=== PATIENT | female | born 1985 | race Asian ===

== ENCOUNTER 2021-01-21 15:27 | Outpatient (CLI) | payer OTHER, SELFPAY ==
--- NOTE | 2021-01-21 15:45 | USR_ITS ---
PROCEDURE INFORMATION: Exam: US , Transvaginal Exam date and time: 01/21/2021 3:45 PM Age: 35 years old Clinical indication: Lmp or gestational age (in weeks): 7w5d; Antepartum complications; Bleeding; ; Additional info: O20.0 - threatened TECHNIQUE: Imaging protocol: Real-time transvaginal obstetrical ultrasound of the maternal pelvis with image documentation. Transvaginal imaging was used for better evaluation of the fetus, adnexa, and/or cervix. COMPARISON: No relevant prior studies available. FINDINGS: Gestation: Single intrauterine . heart rate: heart rate 167 bpm. BIOMETRY: Gestational age (AUA): Ultrasonographic age 7 weeks 4 days. Estimated due date (AUA): 09/04/2021 US/US OB transvaginal 52804 IMPRESSION: 1. Single intrauterine . 2. heart rate 167 bpm. 3. Ultrasonographic age 7 weeks 4 days.
== END 2021-01-21 15:28 | disposition home or self-care (01) ==
PROVIDERS: Visit Provider Nurse Practitioner Women's Health
DX: O20.0 Threatened abortion (principal); Z3A.01 Less than 8 weeks gestation of pregnancy
CPT/HCPCS: 76817; 81025; 84702

== ENCOUNTER → 2021-02-09 13:48 | Outpatient (BNVA) | payer OTHER, SELFPAY | PROVIDERS: Visit Provider Obstetrics & Gynecology | DX: O09.899 Supervision of other high risk pregnancies, unspecified trimester (principal); O21.9 Vomiting of pregnancy, unspecified | CPT/HCPCS: 80307; 82950; 84315; 87086; 87106; 87107 ==

== ENCOUNTER → 2021-02-24 13:50 | Outpatient (BNVA) | payer OTHER, SELFPAY | PROVIDERS: Visit Provider Obstetrics & Gynecology | DX: O09.899 Supervision of other high risk pregnancies, unspecified trimester (principal) | CPT/HCPCS: 81000; 87086 ==

== ENCOUNTER → 2021-03-23 10:23 | Outpatient (BNVA) | payer OTHER, SELFPAY | PROVIDERS: Visit Provider Nurse Practitioner Women's Health | DX: O09.899 Supervision of other high risk pregnancies, unspecified trimester (principal); Z3A.00 Weeks of gestation of pregnancy not specified | CPT/HCPCS: 82607; 82728; 83550; 84315; 84439; 84443; 84481; 85025 ==

== ENCOUNTER → 2021-04-08 09:53 | Day surgery (SDC) | payer OTHER, SELFPAY ==
[2021-04-08 10:10] VITALS: BP 107/63; PULSE 78; RESP 18; TEMP 36.3; O2SAT 100
[2021-04-08] MEDS: ferric carboxy (IVPB) 750 MG in sodium chloride 0.9% (100 ml) 100 ML 345 MG IV (10:32)
== END ==
PROVIDERS: PCP Internal Medicine; Visit Provider Internal Medicine
DX: K90.9 Intestinal malabsorption, unspecified (principal)
CPT/HCPCS: 96365; J1439

== ENCOUNTER → 2021-04-15 10:24 | Day surgery (SDC) | payer OTHER, SELFPAY ==
[2021-04-15 10:29] VITALS: BP 145/76; PULSE 110; RESP 18; TEMP 36.3; O2SAT 98
[2021-04-15] MEDS: ferric carboxy (IVPB) 750 MG in sodium chloride 0.9% (100 ml) 100 ML 345 MG IV (10:37)
== END ==
PROVIDERS: PCP Internal Medicine; Visit Provider Internal Medicine
DX: K90.9 Intestinal malabsorption, unspecified (principal)
CPT/HCPCS: 96365; J1439

== ENCOUNTER → 2021-04-21 15:10 | Outpatient (BNVA) | payer OTHER, SELFPAY | PROVIDERS: PCP Internal Medicine; Visit Provider Obstetrics & Gynecology | DX: O09.899 Supervision of other high risk pregnancies, unspecified trimester (principal); R30.0 Dysuria; R81 Glycosuria | CPT/HCPCS: 36416; 81000; 82962; 87086 ==

== ENCOUNTER → 2021-04-27 16:04 | Outpatient (BNVA) | payer OTHER, SELFPAY | PROVIDERS: PCP Internal Medicine; Visit Provider Obstetrics & Gynecology | DX: O09.899 Supervision of other high risk pregnancies, unspecified trimester (principal) | CPT/HCPCS: 84315; 84443; 85025 ==

== ENCOUNTER 2021-06-15 08:02 | Outpatient (CLI) | payer OTHER, SELFPAY ==
[2021-06-15 09:13] LABS: Glucose Fasting Gestational 108
[2021-06-15 10:30] LABS: Hematocrit 34.9 % (37.0-47.0); Hemoglobin 11.3 g/dL (11.5-15.3); Mean Corpuscular HGB Conc 32.4 g/dL (30.0-36.0); Mean Corpuscular Hemoglobin 30.2 pg (28.0-34.0); Mean Corpuscular Volume 93.3 fl (81-99); Mean Platelet Volume 10.9 fL (7.4-10.4); Platelet Count 211 10^3/cmm (130-400); Red Blood Count 3.74 10^6/uL (4.1-5.3); Red Cell Distribution Width 17.4 % (12.1-15.1); White Blood Count 10.9 10^3/uL (4.0-10.0)
[2021-06-15 11:05] LABS: Glucose 1 Hour 236 mg/dL
[2021-06-15 11:18] LABS: Thyroid Stimulating Hormone 3.39 uIU/mL (0.27-4.20)
[2021-06-15 11:59] LABS: Glucose 2 Hour 153 mg/dL
[2021-06-15 13:09] LABS: Glucose 3 Hour 122 mg/dL
[2021-06-15 19:30] LABS: Free T4 Free Thyroxine 0.97 ng/dL (0.82-1.77); T3 Free 2.6 PG/ML (2.0-4.4)
== END 2021-06-15 08:03 | disposition home or self-care (01) ==
LOC: LAB 08:06
PROVIDERS: PCP Internal Medicine; Visit Provider Obstetrics & Gynecology
DX: E03.9 Hypothyroidism, unspecified (principal)
CPT/HCPCS: 82951; 82952; 84439; 84443; 84481; 85027

== ENCOUNTER 2021-06-19 16:24 | Outpatient (CLI) | payer OTHER, SELFPAY ==
[2021-06-19 18:10] LABS: SARS Covid-2 Antigen Negative (Negative)
[2021-06-22 17:32] LABS: Coronavirus Test Green County Not Detected
== END 2021-06-19 16:25 | disposition home or self-care (01) ==
LOC: OPS 16:27
PROVIDERS: PCP Internal Medicine; Visit Provider Emergency Medicine
DX: Z20.822 Contact with and (suspected) exposure to COVID-19 (principal)
CPT/HCPCS: 87426; 87635

== ENCOUNTER → 2021-07-11 15:34 | Outpatient (BNVA) | payer OTHER, SELFPAY | PROVIDERS: PCP Internal Medicine; Visit Provider Nurse Practitioner Women's Health | DX: O24.419 Gestational diabetes mellitus in pregnancy, unspecified control (principal); O09.899 Supervision of other high risk pregnancies, unspecified trimester | CPT/HCPCS: 76816; 76819; 84315; 84443 ==

== ENCOUNTER 2021-07-15 14:30 | Outpatient (CLI) | payer OTHER, SELFPAY ==
[2021-07-15 14:40] VITALS: BMI 38.7
[2021-07-15 14:43] VITALS: BP 100/65; PULSE 103; RESP 18; TEMP 36.3
--- NOTE | 2021-07-15 14:46 | USR_ITS ---
PROCEDURE INFORMATION: Exam: US Biophysical Profile Without Non-Stress Test Exam date and time: 07/15/2021 2:46 PM Age: 35 years old Clinical indication: Other: Bpp C/O gdm; ; Patient HX: Gdm, normal nst today. ; Additional info: Decreased movment TECHNIQUE: Imaging protocol: US biophysical profile without non-stress testing. Total images: 24 COMPARISON: US OB BPP w NST [facility] 07/11/2021 3:37 PM FINDINGS: heart rate: cardiac activity regular at 157 bpm. Presentation: Cephalic presentation. Placenta: Posterior placenta without visible previa or abruption. Amniotic fluid: Largest amniotic fluid pocket 6.2 cm. BIOPHYSICAL PROFILE: Breathin/2 Gross body movements: 2/2 tone: 2/2 Qualitative amniotic fluid: 2/2 Biophysical Profile Score: 8/8 MATERNAL ANATOMY: Cervix: Cervical length 4.4 cm. US/US OB BPP wo NST 74928 IMPRESSION: Biophysical profile score 8/8.
[2021-07-15 14:58] VITALS: BP 90/55; PULSE 104
[2021-07-15 15:31] LABS: Glucose Point of Care 105 mg/dL (70-110)
[2021-07-15 15:44] VITALS: BP 90/55; PULSE 104
== END 2021-07-15 15:45 | disposition home or self-care (01) ==
LOC: OPOB 14:33 → OBGYN 14:35
PROVIDERS: Absent Provider Obstetrics & Gynecology; PCP Internal Medicine; Visit Provider Obstetrics & Gynecology
DX: O36.8190 Decreased fetal movements, unspecified trimester, not applicable or unspecified (principal); Z3A.00 Weeks of gestation of pregnancy not specified
CPT/HCPCS: 36416; 59025; 76819; 82962; 99211

== ENCOUNTER → 2021-08-03 15:24 | Outpatient (BNVA) | payer OTHER, SELFPAY | PROVIDERS: PCP Internal Medicine; Visit Provider Obstetrics & Gynecology | DX: O09.899 Supervision of other high risk pregnancies, unspecified trimester (principal); D64.9 Anemia, unspecified; E03.9 Hypothyroidism, unspecified | CPT/HCPCS: 84315; 87081 ==

== ENCOUNTER → 2021-08-08 16:21 | Outpatient (BNVA) | payer OTHER, SELFPAY | PROVIDERS: PCP Internal Medicine; Visit Provider Obstetrics & Gynecology | DX: O09.899 Supervision of other high risk pregnancies, unspecified trimester (principal); O24.419 Gestational diabetes mellitus in pregnancy, unspecified control | CPT/HCPCS: 84315; 84443; 85025 ==

== ENCOUNTER 2021-08-14 13:45 | Outpatient (CLI) | payer OTHER, SELFPAY ==
[2021-08-14] MEDS: betamethasone susp 6 mg/mL 5 mL 12 MG IM (14:08)
[2021-08-14 14:33] VITALS: RESP 18
== END 2021-08-14 14:34 | disposition home or self-care (01) ==
LOC: OPOB 13:51
PROVIDERS: PCP Internal Medicine; Visit Provider Obstetrics & Gynecology
DX: O26.899 Other specified pregnancy related conditions, unspecified trimester (principal); Z3A.00 Weeks of gestation of pregnancy not specified
CPT/HCPCS: 96372; J0702

== ENCOUNTER 2021-08-15 15:15 | Outpatient (CLI) | payer OTHER, SELFPAY ==
[2021-08-15 15:26] VITALS: BMI 39.6
[2021-08-15] MEDS: betamethasone susp 6 mg/mL 5 mL 12 MG IM (15:33)
== END 2021-08-15 15:50 | disposition home or self-care (01) ==
LOC: OPOB 15:18 → OBGYN 15:19
PROVIDERS: PCP Internal Medicine; Visit Provider Obstetrics & Gynecology
DX: O26.899 Other specified pregnancy related conditions, unspecified trimester (principal); Z3A.00 Weeks of gestation of pregnancy not specified
CPT/HCPCS: 96372; J0702

== ENCOUNTER 2021-08-16 05:31 | Inpatient (IN) | payer OTHER, SELFPAY ==
--- NOTE | 2021-08-11 12:30 | ANES.PREANE2 ---
Pre-Anesthetic Assessment Pre-Anesthetic Assessment: Height/Weight: Height 1.57 m Preop Diagnosis: IUP Proposed Procedure: Operation Date: 08/16/21 07:00 Proposed Procedures p Section Repeat 11725 O34.219(Not Applicable) - Clarisa Mcclellan MD Familial anesthetic complications: Required unplanned and last epidural ended up being unilateral and she could feel. She had to have emergent general. Social: Social History: No alcohol and No tobacco Exam: Pre-Anes Outpt Exam: alert, oriented x 3, clear to auscultation bilaterally and regular rate & rhythm Airway: MP: 2 Dentition: Full GI: GI: GERD Metabolic: Metabolic: DM (gestational DM (scheduled )) and Thyroid Anesthetic Plan: ASA status: 2 Anesthesia: Regional (specify below) (spinal ) Risk of > 500 ml blood loss (7ml/kg in children): No PFSH Anesthesia PFSH: Medical History Anemia Reports being chronically anemic--states work-up has been done which only showed iron deficiency-have requested these records Cyst, ovary, dermoid Reports being diagnosed with a dermoid cyst either 4 mm or 4 cm in one of her ovaries in 2014. She states that she had serial ultrasounds that showed no growth and at the time of her in 2016 she was told that it resolved and she never had any surgical intervention. Hypothyroidism Diagnosed in 2017 and has been on medication. Reports that she is not very compliant with taking the medication. No pertinent past medical history Denies diabetes, asthma, hypertension, seizures, DVT/PE PCP:None Pituitary microadenoma Reports being diagnosed with a pituitary microadenoma in 2013 when she was undergoing evaluation for elevated prolactin. She had follow-up MRIs and was told everything was stable. She has not have this reevaluated since 2014. Recommend follow-up with endocrinology . She is asymptomatic Surgical History History of bunionectomy 2007 - Left foot History of delivery 04/17/2021-done by Dr. Wayne Hunter in [facility]. ----->Operative reports have been requested and received and scanned. Low transverse delivery for failure to progress-single layer closure with no extensions documented. History of tonsillectomy and adenoidectomy 2003 Family History Grandfather Cancer maternal, Lymphoma Diabetes maternal Hypertension Mother Diabetes Hypertension Grandmother Diabetes maternal Hypertension maternal Family/Other Thyroid disease maternal uncle Heart disease paternal aunt, paternal uncle Brother Diabetes Denies family history of Colon cancer Ovarian cancer Hypercholesteremia Breast cancer Uterine cancer Stroke Data Anesthesia Cardiac Studies: No Data to Display
[2021-08-14 09:33] LABS: Quest SARS-CoV-2 RNA NOT DETECTED (NOT DETECTED)
[2021-08-16] VITALS (20 sets, daily range): BP systolic 91–127; BP diastolic 54–88; PULSE 57–82; RESP 14–18; TEMP 35.9–36.9; O2SAT 95–99; BMI 38.6
--- NOTE | 2021-08-16 06:24 | PM.OPHPUD ---
Labor & Delivery H&P Update Date of Procedure: August 16, 2021 Date H&P Performed: 08/08/21 Changes to previous documentation: none Admission Diagnosis: Preop diagnosis: IUP Planned procedure: Operation Date: 08/16/21 07:00 Proposed Procedures p Section Repeat 96968 O34.219(Not Applicable) - Clarisa Mcclellan MD
[2021-08-16] MEDS: lactated ringers 1,000 ML 999 ML IV (06:28)
[2021-08-16] MEDS: metoclopramide 5 mg/mL SDV 2 mL 10 MG IVP (06:29)
[2021-08-16] MEDS: famotidine 20 mg/2 mL INJ IVP (06:29)
[2021-08-16] MEDS: citric acid-sodium citrate 30 mL UDC PO (06:29)
[2021-08-16 06:33] LABS: Basophils % 0.2 %; Hemoglobin 12.1 g/dL (11.5-15.3); Lymphocytes # 2.5 10^3/uL (0.8-4.8); Mean Corpuscular HGB Conc 32.7 g/dL (30.0-36.0); Mean Corpuscular Hemoglobin 29.2 pg (28.0-34.0); Mean Corpuscular Volume 89.2 fl (81-99); Mean Platelet Volume 11.8 fL (7.4-10.4); Monocytes # 0.5 10^3/uL (0.2-0.9); Monocytes % 3.8 %; Neutrophils # 9.08 10^3/uL (1.8-7.7); Neutrophils % 73.8 %; Nucleated Red Blood Cells % 0 %; Platelet Count 205 10^3/cmm (130-400); Red Blood Count 4.15 10^6/uL (4.1-5.3); Red Cell Distribution Width 14.4 % (12.1-15.1); White Blood Count 12.3 10^3/uL (4.0-10.0)
--- NOTE | 2021-08-16 07:52 | PC.NURSE ---
surgicel placed: ref: [id number], LOT: [id number] Exp: 03-22-25
--- NOTE | 2021-08-16 08:53 | P.OP_ITS ---
Operative Report Date of procedure: August 16, 2021 OPERATIVE REPORT Date of surgery: 08/16/2021 Date of dictation: 08/16/2021 Preoperative diagnosis: 35-year-old 2 para 1-0-0-1 at 37 weeks and 1 day gestation, previous delivery x1 desiring repeat , hypothyroidism on medication, anemia status post IV iron, gestational diabetes poorly controlled with insulin, GBS negative Postoperative diagnosis/findings: Thin omental adhesions and thin bladder adhesions on the lower uterine segment, baby girl weighing 7 pounds 7 ounces, normal tubes and ovaries bilaterally Procedure done: Repeat low transverse delivery via Pfannenstiel incision. Specimens removed/disposition of specimens: Placenta and cord which were discarded Surgeon: Dr. Clarisa Teague training assistant: Ramón Reyes Stephanie Anesthesia: Spinal anesthesia Estimated blood loss: 700 ml Intravenous fluids: 1600 mL of LR Urine output: 250 mL of clear urine at the end of procedure Medications: As per anesthesia records Complications: None, both baby and mother were left to recover in a stable condition. PROCEDURE: After consent was obtained, patient was taken to the operating room where spinal anesthesia was placed without difficulty. She was placed supine on the table with a left lateral wedge. Piedra catheter and SCDs were placed. The abdomen was shaved and then prepped with duo prep. She was draped in a sterile fashion. After checking adequacy of anesthesia, a Pfannenstiel incision was made 2 cm above the pubic symphysis-at the level of her old incision The incision was carried down to the fascia using the Bovie. The fascia was nicked in the midline and the fascial incision was extended laterally using curved Mayos. The inferior aspect of the fascia was grasped with jamie clamps and dissected off from the underlying rectus muscle. This was repeated again superiorly without any difficulty. The rectus muscle was . A sahara was made in the peritoneum and the peritoneal incision was carried inferiorly taking care to proceed in layers so as to avoid the bladder. The peritoneal incision was extended super iorly as well. Thin filmy omental adhesions were noted onto the anterior abdominal wall. No adhesions were noted from the uterus to the anterior abdominal wall. The uterus was noted to be rotated to the left. The bladder peritoneum was grasped with smooth forceps a bladder flap was created. the bladder blade was replaced thus protecting the bladder. A LOW TRANSVERSE UTERINE INCISION was made with a scalpel till the amniotic membrane was reached. The uterine incision was then extended laterally using bandage scissors. Amniotomy was done with Allis clamps and clear amniotic fluid was drained. The head of the baby was brought up to the level of the incision and delivered with fundal pressure. The remainder of body followed without any difficulty. The nose and mouth were suctioned, the umbilical cord was clamped and cut and the baby was handed off to the waiting carbon paper coating supervisor, Dr. Johnson. The placenta was delivered spontaneously with fundal massage. It was noted to be intact and was discarded. The interior of the uterus was cleaned of all clot and debris and was noted to be lupe well. The uterus was exteriorized. The uterine incision was closed with 0 Vicryl in a running interlocking manner. Good hemostasis and reapproximation was obtained. Lyvjog-zf-dmetc sutures were placed to obtain hemostasis as a second layer. The abdomen was irrigated and the gutters were cleaned of clot and debris. Normal tubes and ovaries were noted bilaterally. The uterus was placed back into the abdomen and uterine incision was noted to be hemostatic. Surgicel was placed over the uterine incision. The peritoneum was closed with a 2-0 plain in a continuous stitch. The rectus muscle was reapproximated with 2-0 plain suture in a mattress stitch. Good hemostasis was noted in the rectus muscle layer. The fascia was inspected for any defects and none were found and the fascia was closed with 0 looped PDS in continuous stitch. The subcutaneous plane was then irrigated and hemostasis was obtained using the Bovie. The subcutaneous plane was then reapproximated using 2-0 plain suture in a continuous manner. The skin was then closed with 4-0 Monocryl in a subcuticular fashion. Good reapproximation and hemostasis was noted. Steri- Strips were applied. The incision was dressed with Telfa ,ABD and paper tape. The fundus was noted to be firm at the end of the procedure and excess blood was expressed from the vagina. The patient was left to recover in a stable condition. This documentation was created by [employer] inner layer scrubber tender software (known for inher ent inner layer scrubber tender error). Every effort was made to assure accuracy of inner layer scrubber tender. Any obvious errors or omissions should be clarified with the author of the document. Pre-op diagnosis: Preop Diagnosis IUP
--- NOTE | 2021-08-16 10:11 | P.ANESUD_ITS ---
Pre-Anesthetic Update Pre-Anesthetic Assessment: Date of Surgery/Procedure: 08/16/21 Preop Gina gnosis: IUP Proposed Procedure: Operation Date: 08/16/21 07:00 Proposed Procedures p Section Repeat 42701 O34.219(Not Applicable) - Clarisa Mcclellan MD Any changes to Pre-Anesthetic Assessment?: No Last Intake: Intake Last Liquid Date 08/15/21 Last Liquid Time 21:00 Last Solid Date 08/15/21 Last Solid Time 21:00 Labs Last 48hrs: Short CBC 08/16/21 Range/Units 05:55 WBC 12.3 H (4.0-10.0) 10^3/ uL Hgb 12.1 (11.5-15.3) g/dL Hct 37.0 (37.0-47.0) % MCV 89.2 (81-99) fl Plt Count 205 (130-400) 10^3/c mm Neut % (Auto) 73.8 % Neut # (Auto) 9.08 H (1.8-7.7) 10^3/u L Blood Bank 08/16/21 05:55 Blood Type A Positive Rho(D) Type Positive Vitals: Temperature 98.0 F 08/16/21 08:26 Temperature Source Temporal Artery S can 08/16/21 08:26 Pulse Rate 67 08/16/21 08:50 Pulse Rhythm 08/16/21 05:59 Pulse Strength 3+ Normal 08/16/21 05:59 Respiratory Rate 16 08/16/21 08:50 Respiratory Effort Non-Labored 08/16/21 05:59 Respiratory Depth Normal 08/16/21 05:59 Respiratory Patter n 08/16/21 05:59 Blood Pressure 104/58 08/16/21 08:50 Blood Pressure Tonia n 73 08/16/21 08:50 Pulse Oximetry 99 08/16/21 08:50 Oxygen Delivery Me thod 08/16/21 08:50 Exam: Pre-Anes Outpt Exam: alert, oriented x 3, clear to auscultation bilaterally and regular rate & rhythm Cardiac Studies: No Data to Display
--- NOTE | 2021-08-16 10:12 | ANE.PACU2 ---
Inpatient post-anesthesia follow up: Vital signs: Temperature 98.0 F Pulse Rate 67 Respiratory Rate 16 Blood Pressure 104/58 Pulse Oximetry 99 Oxygen Delivery Me thod Room Air Oxygen Flow Rate Fraction of Inspir ed Oxygen Hydration adequate: Yes Nausea and vomiting: No Pain level: 1 Mental status: Baseline
[2021-08-16 11:01] LABS: Glucose Point of Care 59 mg/dL (70-110)
[2021-08-16] MEDS: dextrose 5%-lactated ringers 1,000 ML 125 ML IV (12:19)
[2021-08-16] MEDS: docusate sodium 100 mg Capsule PO ×2 (12:20→18:39)
[2021-08-16] MEDS: ibuprofen 800 mg tablet PO ×2 (15:32→20:55)
[2021-08-16] MEDS: acetaminophen 325 mg Tablet 650 MG PO (18:39)
[2021-08-16 21:12] LABS: Hematocrit 33.2 % (37.0-47.0); Hemoglobin 10.9 g/dL (11.5-15.3); Mean Corpuscular HGB Conc 32.8 g/dL (30.0-36.0); Mean Corpuscular Hemoglobin 29.1 pg (28.0-34.0); Mean Corpuscular Volume 88.5 fl (81-99); Platelet Count 185 10^3/cmm (130-400); Red Blood Count 3.75 10^6/uL (4.1-5.3); Red Cell Distribution Width 14.3 % (12.1-15.1); White Blood Count 14.2 10^3/uL (4.0-10.0)
[2021-08-16] MEDS: dextrose 5%-lactated ringers 1,000 ML 50 ML IV (21:30)
[2021-08-16] MEDS: lactulose oral liq 20 gm/30 mL UDC PO (22:30)
[2021-08-17 03:14] VITALS: BP 105/68; PULSE 71; TEMP 36.8; O2SAT 96
--- NOTE | 2021-08-17 08:12 | PM.PN ---
Subjective Subjective: Interval history: SUBJECTIVE: Ms. Piper is doing okay today. Has quite a bit of pain but has not been taking her pain medication and has not had p.o. pain medicines in over 8 hours. She has ambulated a little. Reports passing flatus as well as having a bowel movement. She is breast-feeding without any difficulty and bonding well with her daughter. She denies nausea, vomiting, fever, chills, shortness of breath and chest pain. She is just pretty sore. She has not yet voided since catheter was just taken out but hopes that she will be able to void without any difficulty later today. OBJECTIVE/PHYSICAL EXAM: Gen.: No acute distress Heart: S1-S2 heard, regular rate and rhythm Lungs: Clear to auscultation bilaterally Abdomen: Soft, fundus firm below umbilicus, tenderness around incision. Incision: Dressing on appears clean dry and intact Legs: No calf tenderness, +1 pitting pedal edema. ASSESSMENT AND PLAN: 35-year-old gravida2 para 2002 status post repeat delivery, postoperative day #1 -Continue routine postoperative care -Encourage ambulation and incentive spirometer use -Long discussion with patient about importance of taking p.o. pain medication on schedule especially for the first week to come trolled postoperative pain. Patient's concern was getting constipated and patient reassured and constipation medication discussed. -Breast-feeding discussed and she is doing well with this. -Discussed I would recommend she stay at least for 1 more night to recover from surgery and she is agreeable with this. -Vital signs stable, hemoglobin stable continue regular diet - Vitals/I&O/Wt Last Vital Signs Temp 98.2 F 08/17/21 03:14 Pulse 71 08/17/21 03:14 Resp 16 08/16/21 17:21 BP 105/68 08/17/21 03:14 Pulse Ox 96 08/17/21 03:14 08/16/21 08/17/21 08/17/21 22:59 06:59 14:59 Intake Total 960.417 / 2520.417 500 / 3020.417 Output Total 800 / 2150 900 / 3050 Balance 160.417 / 370.417 -400 / -29.583 Weight last 48 hrs Weight 218 lb Physical Exam Urinary Catheter Management: Piedra: Cath Placed During This Visit: yes, but has since been removed by the nurse Reason for Continuing Indwelling Catheter: Decision to DC Catheter Urinary Catheter Date of Insertion: 08/16/21 Urinary Catheter Time of Insertion: 07:00 Date Urinary Catheter Removed: 08/17/21 Time Urinary Catheter Discontinued: 06:01 Data : 08/16/21 21:00 Attestations Medical Necessity Statement*: Patient needs to stay for 1 or 2 more midnights to recover from surgery Coding Level of Care Code Acute Corporate Administrator for Antonia Frye
[2021-08-17] MEDS: HYDROcodone-acetaminophen 5-325 mg Tablet PO ×4 (08:47→23:11)
[2021-08-17] MEDS: prenatal vitamin Capsule 1 CAP PO (08:47)
[2021-08-17] MEDS: ibuprofen 800 mg tablet PO ×3 (08:48→21:36)
[2021-08-17] MEDS: ferrous sulfate EC 325 mg Tablet PO ×2 (08:48→18:18)
--- NOTE | 2021-08-17 09:35 | PC.NURSE ---
Patient ambulating in the smiley at this time. Patient completing 10 laps as stated by her primary nurse. With each lap, patient was starting to stand up straighter and the patient was increasing speed. FLACC scale completed on pain level post pain medication.
--- NOTE | 2021-08-17 17:38 | PC.NURSE ---
on the phone with Patient in room
[2021-08-17] MEDS: docusate sodium 100 mg Capsule PO ×2 (18:18→19:11)
[2021-08-17 19:29] VITALS: RESP 17
[2021-08-17] MEDS: morphine 4 mg/mL SDV 1 mL IM (19:29)
[2021-08-17 20:45] VITALS: BP 102/70; PULSE 98; TEMP 36.4; O2SAT 98
--- NOTE | 2021-08-17 21:46 | PC.NURSE ---
Patient ambulated 5 labs around unit at this time.
[2021-08-17] MEDS: lanolin oint 7 gm 1 APPLIC TOPICAL (21:51)
[2021-08-17 23:19] VITALS: BP 105/71; PULSE 97; TEMP 36.6
[2021-08-18] MEDS: HYDROcodone-acetaminophen 5-325 mg Tablet PO ×3 (02:58→11:06)
[2021-08-18 04:40] VITALS: BP 93/60; PULSE 69; RESP 15; TEMP 36.9
[2021-08-18 07:20] VITALS: BP 121/81; PULSE 79; RESP 18; TEMP 36.6
--- NOTE | 2021-08-18 08:58 | P.DS_ITS ---
Discharge Providers GENERAL SERVICE OFFICER Date of Admission: 08/16/21 05:31 Date of Discharge: 08/18/21 Attending Provider at Admission: Clarisa Mcclellan MD Attending Provider at Discharge: Clarisa Mcclellan MD PREOPERATIVE DIAGNOSIS: 35-year-old 2 para 1-0-0-1 at 37 weeks and 1 day gestation, previous delivery x1 desiring repeat , hypothyroidism on medication, anemia status post IV iron, gestational diabetes poorly controlled with insulin, GBS negative Covid negative POSTOPERATIVE DIAGNOSIS/FINDINGS: Status post repeat delivery on 08/16/2021 Hypothyroidism Anemia-stable Procedure done: Repeat low transverse delivery via Pfannenstiel incision. Surgeon:Dr. Clarisa Teague Preprocedure course: Patient presented on 08/16/2021 for scheduled repeat delivery for poorly controlled gestational diabetes on insulin. She did have 1 previous and desires repeat delivery. She was not interested in trial of labor. HOSPITAL COURSE: She underwent an uncomplicated repeat delivery on 08/16/2021. She did well on day 1 and was ambulating well, tolerating regular diet, voiding freely, passing flatus. She was breast-feeding without difficulty and bonding well with her daughter. Pain was well-controlled with by mouth pain medication. She denied nausea, vomiting, fever, chills, shortness of breath, leg pain. She had moderate vaginal bleeding. On day # 2 she continued to do well with stable vital signs and stable hemoglobin at 10.9. She was discharged home on day 2 in a stable condition, as she desired early discharge. Warning signs for endometritis, wound infection, mastitis, DVT/PE were reviewed with her. Post delivery activity restrictions were also reviewed with her at all her questions were answered to her satisfaction. She is undecided about what she wants to use for contraception and this will be discussed at her visit. EXAM AT DISCHARGE: Gen.: No acute distress Heart: S1-S2 heard, regular rate and rhythm Lungs: Clear to auscultation bilaterally Abdomen: Soft, fundus firm below umbilicus, tenderness around incision. Incision: Clean dry and intact with Steri-Strips. Legs: No calf tenderness, trace pedal edema. CONDITION AT DISCHARGE: Stable This documentation was created by [employer] web press jogger software (known for inherent web press jogger error). Every effort was made to assure accuracy of web press jogger. Any obvious errors or omissions should be clarified with the author of the document. Primary Care Provider: Kenny Zabala MD Reason for Visit Reason for Visit: JOHN 09/05/2021 Information Peripartum Data: Infant Delivery Method: Physical Exam Urinary Catheter Management: Piedra: Cath Placed During This Visit: yes, but has since been removed by the nurse Reason for Continuing Indwelling Catheter: Decision to DC Catheter Urinary Catheter Date of Insertion: 08/16/21 Urinary Catheter Time of Insertion: 07:00 Date Urinary Catheter Removed: 08/17/21 Time Urinary Catheter Discontinued: 06:01 History History History 2 Term 2 Miscarriages/Ectopic 0 0 Living Children 2 Other History: 2, para 2001 CD x 2 1---> 04/17/2017, female(Kayleigh), weighing 7 pounds ounces. Term for failure to progress after induction Dr. Luis Hunter,. In [place], [place]. Operative reports have been requested and received and scanned. Low transverse delivery for failure to progress-single layer closure with no extensions documented.. 2---> 08/16/2021, female(Hazel) weighing 7 pounds 7 ounces. Repeat delivery at 37 weeks and 1 day for poorly controlled gestational diabetes on insulin. Thin omental adhesions. Double layer closure with no extensions. Performed by Dr. Teague at [facility] Discharge Data Studies Completed and Pending Laboratory Results WBC 14.2 10^3/uL (4.0-10.0) H 08/16/21 21:00 RBC 3.75 10^6/uL (4.1-5.3) L 08/16/21 21:00 Hgb 10.9 g/dL (11.5-15.3) L 08/16/21 21:00 Hct 33.2 % (37.0-47.0) L 08/16/21 21:00 MCV 88.5 fl (81-99) 08/16/21 21:00 MCH 29.1 pg (28.0-34.0) 08/16/21 21:00 MCHC 32.8 g/dL (30.0-36.0) 08/16/21 21:00 RDW 14.3 % (12.1-15.1) 08/16/21 21:00 Plt Count 185 10^3/cmm (130-400) 08/16/21 21:00 MPV 11.0 fL (7.4-10.4) H 08/16/21 21:00 Neut % (Auto) 73.8 % 08/16/21 05:55 Lymph % (Auto) 20.0 % 08/16/21 05:55 Mcdowell % (Auto) 3.8 % 08/16/21 05:55 Eos % (Auto) 0.0 % 08/16/21 05:55 Baso % (Auto) 0.2 % 08/16/21 05:55 Neut # (Auto) 9.08 10^3/uL (1.8-7.7) H 08/16/21 05:55 Lymph # (Auto) 2.5 10^3/uL (0.8-4.8) 08/16/21 05:55 Mcdowell # (Auto) 0.5 10^3/uL (0.2-0.9) 08/16/21 05:55 Eos # (Auto) 0.0 10^3/uL (0.0-0.8) 08/16/21 05:55 Baso # (Auto) 0.0 10^3/uL (0.0-0.1) 08/16/21 05:55 Nucleated RBC % (auto) 0 % 08/16/21 05:55 Nucleated RBCs # 0.0 /100WBC 08/16/21 05:55 POC Glucose 59 mg/dL (70-110) L 08/16/21 10:55 SARS-CoV-2 RNA (RT-PCR) Not detected (NOT DETECTED) 08/12/21 16:09 Blood Type A Positive 08/16/21 05:55 Rho(D) Type Positive 08/16/21 05:55 Vitals Last Vital Signs Temp 98.4 F 08/18/21 04:40 Pulse 69 08/18/21 04:40 Resp 15 08/18/21 04:40 BP 93/60 08/18/21 04:40 Pulse Ox 98 08/17/21 20:45 Discharge Plan Discharge Patient Disposition: Home Condition: Stable Prescriptions: New ibuprofen 800 mg tablet 800 mg PO Q8H Qty: 30 0RF hydrocodone-acetaminophen 5-325 mg tablet 1 tab PO Q6H Qty: 25 0RF Rx Instructions: Alternate with ibuprofen lactulose 10 gram packet 10 g PO BID Qty: 30 0RF Continued docusate sodium [Colace] 100 mg capsule 300 mg PO DAILY PRN (Reason: Constipation) 0RF Discontinued Lantus Solostar U-100 Insulin 100 unit/mL (3 mL) insulin pen 18 unit SUBCUT .QHS 0RF Humulin N NPH Insulin KwikPen 100 unit/mL (3 mL) insulin pen 16 unit SUBCUT .QHS 0RF levothyroxine 25 mcg capsule 50 mcg PO DAILY 0RF insulin lispro [Humalog KwikPen Insulin] 100 unit/mL insulin pen See Rx Instructions SUBCUT TID Qty: 3 1RF Rx Instructions: has sliding scale doses for TID dosing-- use as directed azithromycin 250 mg tablet See Rx Instructions PO .COMPLEX Qty: 6 0RF Rx Instructions: take 500 mg today (day 1), then 250 mg for 4 days (days 2-5) PO No Action (DME) breast pump Device See Rx Instructions .ROUTE .MEDSUPPLY Qty: 1 0RF Rx Instructions: As directed (DME) blood-glucose meter [Accu-Chek Guide Me Glucose Mtr] Misc See Rx Instructions .Route Qty: 1 0RF Rx Instructions: As directed (DME) lancets [Accu-Chek Softclix Lancets] Misc See Rx Instructions .Route Qty: 200 2RF Rx Instructions: As directed (DME) Accu-Chek Guide test strips Strip See Rx Instructions .Route Qty: 100 3RF Rx Instructions: As directed Discharge Orders: Discharge Order (Routine); Ordered 08/18/21 Ordered By: Clarisa Mcclellan Referrals: Clarisa Mcclellan MD [Physician] - 08/30/21 11:30 am (Your 2 week incision check is scheduled for 08/30/21 @11:30. Your 6 week post- appointment is scheduled for 09/28/21 @2:30. ) Discharge Diet: Regular Discharge Activity: Limit activity as instructed Patient Instructions: Depression (DC), Bleeding (DC), Preeclampsia and Eclampsia After Delivery (GEN), OB WHC, OB Discharge Report, OB Food/Drug Interaction Guide, Opioid Safety, OB Home Care Activity Restrictions/Additional Instructions: 1 week and 2-week incision check with Dr. Teague, 6-week with Dr. Teague Pelvic rest for 6 weeks, no heavy lifting for 6 weeks Discharge Attestations GENERAL SERVICE OFFICER Time Spent in Discharge Care*: greater than 30 min Coding Level of Care Code Acute Dump Grounds Checker for Antonia Frye
[2021-08-18] MEDS: ibuprofen 800 mg tablet PO (11:06)
[2021-08-18] MEDS: prenatal vitamin Capsule 1 CAP PO (11:07)
[2021-08-18] MEDS: ferrous sulfate EC 325 mg Tablet PO (11:07)
[2021-08-18] MEDS: docusate sodium 100 mg Capsule PO (11:07)
[2021-08-18 11:15] VITALS: BP 106/74; PULSE 79; RESP 18; TEMP 37.2
[2021-08-18 12:56] VITALS: BP 106/74; PULSE 79; RESP 18; TEMP 37.2
== END 2021-08-18 12:57 | disposition home or self-care (01) | DRG 788 ==
PROVIDERS: Admitting Provider Obstetrics & Gynecology; PCP Internal Medicine; Visit Provider Obstetrics & Gynecology
PROC: 10D00Z1 Extraction of Products of Conception, Low, Open Approach (ICD-10-PCS; CPT 59514; principal; 2021-08-16 07:00)
DX: O34.211 Maternal care for low transverse scar from previous cesarean delivery (principal); Z3A.37 37 weeks gestation of pregnancy; Z37.0 Single live birth; O99.02 Anemia complicating childbirth; D64.9 Anemia, unspecified; O99.284 Endocrine, nutritional and metabolic diseases complicating childbirth; E03.9 Hypothyroidism, unspecified; O24.424 Gestational diabetes mellitus in childbirth, insulin controlled; D35.2 Benign neoplasm of pituitary gland; O75.89 Other specified complications of labor and delivery
CPT/HCPCS: 36415; 36416; 51702; 59025; 59409; 82962; 85025; 85027; 86900; 87635; 96372; 96374; J0690; J2270; J2274; J2370; J2405; J2765; J3010; J3490; J7030

== ENCOUNTER → 2021-09-28 09:35 | Outpatient (BNVA) | payer OTHER, SELFPAY | PROVIDERS: PCP Internal Medicine; Visit Provider Obstetrics & Gynecology | DX: O24.419 Gestational diabetes mellitus in pregnancy, unspecified control (principal); E03.9 Hypothyroidism, unspecified; D64.9 Anemia, unspecified | CPT/HCPCS: 82947; 83036; 84443; 85025 ==

== ENCOUNTER 2021-11-23 06:10 | Outpatient (CLI) | payer OTHER, SELFPAY ==
[2021-11-23 09:58] LABS: Free T4 Free Thyroxine 1.08 ng/dL (0.82-1.77); Thyroid Stimulating Hormone 2.58 uIU/mL (0.27-4.20)
[2021-11-24 05:58] LABS: T3 Total 120 ng/dL (76-181)
[2021-11-24 15:21] LABS: Thyroid Peroxidase Antobodies <1 IU/mL (<9)
[2021-11-24 15:57] LABS: Thyroglobulin AB <1 IU/mL (< or = 1)
== END 2021-11-23 06:11 | disposition home or self-care (01) ==
PROVIDERS: PCP Internal Medicine; Visit Provider Internal Medicine
DX: E06.3 Autoimmune thyroiditis (principal)
CPT/HCPCS: 36415; 84439; 84443; 84480; 86376; 86800

== ENCOUNTER 2021-12-22 15:10 | Emergency (ER) | payer OTHER, SELFPAY ==
[2021-12-22 15:14] VITALS: BP 126/85; PULSE 95; RESP 16; TEMP 37; O2SAT 99; BMI 36.6
--- NOTE | 2021-12-22 15:49 | US_ITS ---
WS: [id number] ULTRASOUND ABDOMEN LIMITED CLINICAL INFORMATION: abd pain COMPARISON: None. FINDINGS: Liver Size: Normal. Craniocaudal length: 12.8 cm. Echogenicity: Normal. Surface nodularity: None. Mass (size and location): None. Bile ducts Intrahepatic ducts: Normal. Common bile duct diameter: 0.5 cm. Gallbladder Bulky shadowing cholelithiasis Gallstones: Present Gallbladder sludge: None. Gallbladder wall thickening: None. Pericholecystic fluid: None. Sonographic Wiggins sign: Absent. Pancreas Normal as visualized. Right kidney: Normal. Hydronephrosis: None. Size: 10.5 cm x 4.6 cm x 5.2 cm. Abdominal aorta and IVC Visualized portions are normal. Ascites: None. US/US gall bladder 16094 IMPRESSION: 1. Cholelithiasis. No gallbladder wall thickening or pericholecystic fluid. 2. Normal common bile duct measuring 5.1 mm. 3. No other significant findings.
--- NOTE | 2021-12-22 15:51 | CTR_ITS ---
PROCEDURE INFORMATION: Exam: CT Abdomen And Pelvis With Contrast Exam date and time: 12/22/2021 5:24 PM Age: 36 years old Clinical indication: Abdominal pain; Generalized; Patient HX: Gall stones seen on ultrasound; Additional info: Abd pain TECHNIQUE: Imaging protocol: Computed tomography of the abdomen and pelvis with contrast. Radiation optimization: All CT scans at this facility use at least one of these dose optimization techniques: automated exposure control; mA and/or kV adjustment per patient size (includes targeted exams where dose is matched to clinical indication); or iterative reconstruction. Contrast material: OMNIPAQUE; Contrast volume: 50 ml; Contrast route: INTRAVENOUS (IV); COMPARISON: US gall bladder [id number] 12/22/2021 4:02 PM RADIATION DOSE METRICS: Total DLP (mGy-cm): 1625.46 FINDINGS: Diaphragm: Small hiatal hernia. Liver: Normal. No mass. Gallbladder and bile ducts: Normal. No calcified stones. No ductal dilation. Pancreas: Normal. No ductal dilation. Spleen: Normal. No splenomegaly. Adrenal glands: Normal. No mass. Kidneys and ureters: Normal. No hydronephrosis. Stomach and bowel: Prominent fluid in the small bowel without dilation suggestive an enteritis. Appendix: No evidence of appendicitis. Intraperitoneal space: Unremarkable. No free air. No significant fluid collection. Vasculature: Unremarkable. No abdominal aortic aneurysm. Lymph nodes: Several prominent right lower quadrant subcentimeter short axis lymph nodes, nonspecific. Urinary bladder: Unremarkable as visualized. Reproductive: Unremarkable as visualized. Bones/joints: Unremarkable. No acute fracture. Soft tissues: Small umbilical hernia containing omentum without bowel. CT/CT abdomen pelvis w con* [id number] IMPRESSION: 1. Prominent fluid in the small bowel without dilation suggestive an enteritis. 2. Several prominent right lower quadrant subcentimeter short axis lymph nodes, nonspecific. 3. Small umbilical hernia containing omentum without bowel. 4. Small hiatal hernia.
--- NOTE | 2021-12-22 15:52 | ECG_ITS ---
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 Measurements Intervals [place] Rate: 91 P: 49 MS: 143 QRS: 11 QRSD: 88 T: 16 QT: 345 QTc: 426 Interpretive Statements SINUS RHYTHM INTERPRETATION BASED ON A DEFAULT AGE OF 40 YEARS No previous ECG available for comparison Electronically Signed On 12-22-2021 17:14:16 CDT by Xavier Guardado M.D. [id number] f
[2021-12-22 16:11] LABS: Basophils % 0.5 %; Eosinophils # 0.4 10^3/uL (0.0-0.8); Eosinophils % 4.7 %; Hematocrit 37.8 % (37.0-47.0); Hemoglobin 12.7 g/dL (11.5-15.3); Lymphocytes # 3.4 10^3/uL (0.8-4.8); Mean Corpuscular HGB Conc 33.6 g/dL (30.0-36.0); Mean Corpuscular Hemoglobin 28.9 pg (28.0-34.0); Mean Corpuscular Volume 86.1 fl (81-99); Mean Platelet Volume 10.9 fL (7.4-10.4); Monocytes # 0.5 10^3/uL (0.2-0.9); Monocytes % 5.6 %; Neutrophils # 4.18 10^3/uL (1.8-7.7); Neutrophils % 49.1 %; Nucleated Red Blood Cells % 0 %; Platelet Count 278 10^3/cmm (130-400); Red Blood Count 4.39 10^6/uL (4.1-5.3); Red Cell Distribution Width 13.4 % (12.1-15.1); White Blood Count 8.5 10^3/uL (4.0-10.0)
--- NOTE | 2021-12-22 16:16 | W.ED.ABDPA2 ---
HPI - Abdominal Pain General: Chief Complaint: Abdominal Pain Stated Complaint: abdomen pain Time Seen by Provider: 12/22/21 15:49 Source: patient Mode of arrival: ambulatory Limitations: no limitations History of Present Illness: 36-year-old female presents emergency room with complaint of severe epigastric/abdominal pain. This is been ongoing for several weeks but recently has become much more intense. She has not noticed anything that exacerbates it but she has noted that eating seems to make it a little bit better. Pain is cramping in nature comes and goes and spasm-like fits. She has had issues with constipation she is taken duccosate and MiraLAX for her constipation. She had recently started Ozempic to aid in weight loss. However the symptoms preceded beginning the Ozempic but once started they did seem to get a little bit worse. She is also noted that since starting Ozempic her appetite has significantly dropped off. He is about 4 months. During her she had some episodes of tachycardia but did not have any episodes of gallbladder like symptoms. Patient is a nondrinker she has not previously had any known gallbladder or pancreas issues. No vomiting no diarrhea no hematochezia melena hematemesis coffee-ground emesis no symptoms she has had some problems with ovarian cyst when she was a teenager she has not had any pelvic pain with these episodes of all been epigastric pain somewhat radiating to the left upper quadrant. MD elicited complaint: abdominal pain Pertinent past history: constipation Onset (ago): day(s) Pain Consistency: intermittent Location: Epigastric Severity: moderate Quality: cramping Radiation: LUQ Exacerbating factors: nothing Relieving factors: eating Associated Symptoms: Reports change in bowel habits, coffee ground emesis, constipation, GI cramping, nausea and poor appetite; Denies anorexia, belching, bloating, change in stool character, chills, diarrhea, dyspepsia, dysuria, excessive flatus, fever(s), heartburn, hematochezia, hematuria, hematemesis, fecal incontinence, loose stools, melena, syncope and vomiting Review of Systems Const: Reports: change in appetite; Denies: fever(s), chills, body aches, fatigue or malaise Card: Denies: syncope Resp: Denies: dyspnea, productive cough or non-productive cough GI: Reports: abdominal pain, nausea, coffee ground emesis, constipation, GI cramping and change in bowel habits; Denies: vomiting, hematemesis, heartburn, diarrhea, bloating, belching, excessive flatus, fecal incontinence, change in stool character, hematochezia or melena : Denies: dysuria or hematuria Skin/Breast: Denies: rash or pruritus PFSH ED PFSH: Medical History Anemia Reports being chronically anemic--states work-up has been done which only showed iron deficiency-have requested these records Cyst, ovary, dermoid Reports being diagnosed with a dermoid cyst either 4 mm or 4 cm in one of her ovaries in 2014. She states that she had serial ultrasounds that showed no growth and at the time of her in 2016 she was told that it resolved and she never had any surgical intervention. Hypothyroidism Diagnosed in 2017 and has been on medication. Reports that she is not very compliant with taking the medication. No pertinent past medical history Denies diabetes, asthma, hypertension, seizures, DVT/PE PCP:None Pituitary microadenoma Reports being diagnosed with a pituitary microadenoma in 2013 when she was undergoing evaluation for elevated prolactin. She had follow-up MRIs and was told everything was stable. She has not have this reevaluated since 2014. Recommend follow-up with endocrinology . She is asymptomatic Surgical History History of bunionectomy 2007 - Left foot History of delivery x2 04/17/2021-done by Dr. Wayne Hunter in [facility]. ----->Operative reports have been requested and received and scanned. Low transverse delivery for failure to progress-single layer closure with no extensions documented. 08/16/2021--schedule repeat delivery at 37 weeks for poorly controlled gestational diabetes. Performed by Dr. Teague at [facility]. History of tonsillectomy and adenoidectomy 2003 Family History Grandfather Cancer maternal, Lymphoma Diabetes maternal Hypertension Mother Diabetes Hypertension Grandmother Diabetes maternal Hypertension maternal Family/Other Thyroid disease maternal uncle Heart disease paternal aunt, paternal uncle Brother Diabetes Denies family history of Colon cancer Ovarian cancer Hypercholesteremia Breast cancer Uterine cancer Stroke Social History Smoking and tobacco status: never smoked Physical Exam Const: GENERAL APPEARANCE: cooperative and comfortable ORIENTATION/CONSCIOUSNESS: Yes awake, Yes oriented to person, Yes oriented to place and Yes oriented to time HENMT: COMMON NORMALS: normocephalic and atraumatic HEAD & SCALP: normocephalic and atraumatic Neck/C-Spine: COMMON NORMALS: no JVD Resp: COMMON NORMALS: normal respiratory effort, No retractions, No use of accessory muscles and clear to auscultation bilaterally AUSCULTATION: clear to auscultation bilaterally Cardio: COMMON NORMALS: no JVD, regular rate, regular rhythm and No murmurs present (Cardio) RATE: regular rate RHYTHM: regular rhythm GI: COMMON NORMALS: Soft to palpation and No hepatosplenomegaly present AUSCULTATION: Yes normoactive bowel sounds PALPATION: Yes Soft to palpation, No Tenderness to palpation present (GI), No Guarding due to palpation present (GI) and Yes No hepatosplenomegaly present Extremity: COMMON NORMALS: normal to inspection, capillary refill normal, no clubbing, cyanosis or edema, no calf tenderness and no pedal edema Neuro: SENSORIUM/ORIENTATION: Yes oriented to person, Yes oriented to place and Yes oriented to time Skin: COMMON NORMALS: no rashes or lesions noted GENERAL SKIN EXAM: no rashes or lesions noted Course Vital Signs: Vital signs: Vital Signs Temperature 98.6 F 12/22/21 15:14 Pulse Rate 95 12/22/21 15:14 Respiratory Rate 16 12/22/21 15:14 Blood Pressure 126/85 12/22/21 15:14 Pulse Oximetry 99 12/22/21 15:14 MDM - Abdominal Pain Medical Decision Making Suspect she has biliary colic she does have gallstones. She is a few months . Some this may be brought on or worsened by the Ozempic which she started recently. Recommend that she hold the Ozempic as well as the metformin. Patient given ondansetron and Reglan to use as needed we will schedule follow-up with surgery as well as a HIDA scan. Labs and imaging reviewed with the patient. Medical Records I reviewed the patient's medical records. Lab Data I reviewed the patient's lab results. : 12/22/21 15:45 12/22/21 15:45 Labs/Radiology: Radiology Impressions Gallbladder Ultrasound 12/22/21 15:49 IMPRESSION: 1. Cholelithiasis. No gallbladder wall thickening or pericholecystic fluid. 2. Normal common bile duct measuring 5.1 mm. 3. No other significant findings. Abdomen/Pelvis CT 12/22/21 15:51 IMPRESSION: 1. Prominent fluid in the small bowel without dilation suggestive an enteritis. 2. Several prominent right lower quadrant subcentimeter short axis lymph nodes, nonspecific. 3. Small umbilical hernia containing omentum without bowel. 4. Small hiatal hernia. Laboratory Results WBC 8.5 10^3/uL (4.0-10.0) 12/22/21 15:45 RBC 4.39 10^6/uL (4.1-5.3) 12/22/21 15:45 Hgb 12.7 g/dL (11.5-15.3) 12/22/21 15:45 Hct 37.8 % (37.0-47.0) 12/22/21 15:45 MCV 86.1 fl (81-99) 12/22/21 15:45 MCH 28.9 pg (28.0-34.0) 12/22/21 15:45 MCHC 33.6 g/dL (30.0-36.0) 12/22/21 15:45 RDW 13.4 % (12.1-15.1) 12/22/21 15:45 Plt Count 278 10^3/cmm (130-400) 12/22/21 15:45 MPV 10.9 fL (7.4-10.4) H 12/22/21 15:45 Neut % (Auto) 49.1 % 12/22/21 15:45 Lymph % (Auto) 40.0 % 12/22/21 15:45 [place] % (Auto) 5.6 % 12/22/21 15:45 Eos % (Auto) 4.7 % 12/22/21 15:45 Baso % (Auto) 0.5 % 12/22/21 15:45 Neut # (Auto) 4.18 10^3/uL (1.8-7.7) 12/22/21 15:45 Lymph # (Auto) 3.4 10^3/uL (0.8-4.8) 12/22/21 15:45 [place] # (Auto) 0.5 10^3/uL (0.2-0.9) 12/22/21 15:45 Eos # (Auto) 0.4 10^3/uL (0.0-0.8) 12/22/21 15:45 Baso # (Auto) 0.0 10^3/uL (0.0-0.1) 12/22/21 15:45 Nucleated RBC % (auto) 0 % 12/22/21 15:45 Nucleated RBCs # 0.0 /100WBC 12/22/21 15:45 Sodium 138 mmol/L (136-145) 12/22/21 15:45 Potassium 3.9 mmol/L (3.5-5.1) 12/22/21 15:45 Chloride 104 mmol/L (98-107) 12/22/21 15:45 Carbon Dioxide 21 mmol/L (22-29) L 12/22/21 15:45 Anion Gap 16.9 (5-19) 12/22/21 15:45 BUN 8 mg/dL (6-20) 12/22/21 15:45 Creatinine 0.6 mg/dL (0.5-0.9) 12/22/21 15:45 GFR Calculation 114.4 mL/min (90-130) 12/22/21 15:45 Glucose 85 mg/dL (65-115) 12/22/21 15:45 Calculated Osmolality 284 mOsm/kg (285-295) L 12/22/21 15:45 Calcium 9.6 mg/dL (8.5-10.5) 12/22/21 15:45 Total Bilirubin 0.3 mg/dL (0.15-1.2) 12/22/21 15:45 AST 22 U/L (0-32) 12/22/21 15:45 ALT 26 U/L (0-33) 12/22/21 15:45 Alkaline Phosphatase 93 IU/L (35-105) 12/22/21 15:45 Total Protein 8.4 g/dL (6.6-8.7) 12/22/21 15:45 Albumin 4.5 g/dL (3.5-5.2) 12/22/21 15:45 Globulin 3.9 g/dL (1.3-4.6) 12/22/21 15:45 Lipase 30 U/L (13-60) 12/22/21 15:45 HCG, Qual Negative (Negative) 12/22/21 15:45 Discharge Plan Discharge Patient Disposition: Home Clinical Impression: Biliary colic, Medication side effect Condition: Stable Prescriptions: New ondansetron HCl 4 mg tablet 4 mg PO Q6H PRN (Reason: nausea and vomiting) Qty: 20 0RF Reglan 10 mg tablet 10 mg PO Q6H PRN (Reason: nausea and vomiting) Qty: 20 0RF Changed pantoprazole 40 mg tablet,delayed release (DR/EC) 40 mg PO BID Qty: 90 3RF Held Ozempic 0.25 mg or 0.5 mg(2 mg/1.5 mL) pen injector 0.25 mg SUBCUT .weekly for a month Qty: 1.5 0RF Hold Instructions: Resume on 01/19/22. Rx Instructions: Inject 0.25 mg subcut once a week. Ozempic 0.25 mg or 0.5 mg(2 mg/1.5 mL) pen injector 0.5 mg SUBCUT .weekly for a month Qty: 3 0RF Hold Instructions: Resume on 01/19/22. Rx Instructions: Inject 0.5 mg subcut once a week for a month. Ozempic 1 mg/dose (4 mg/3 mL) pen injector 1 mg SUBCUT .weekly Qty: 9 3RF Hold Instructions: Resume on 01/19/22. Rx Instructions: Inject 1 mg subcut once a week for a month, then increase to 2 mg once a week and continue. metformin 500 mg tablet extended release 24 hr 500 mg PO DAILY Qty: 90 3RF Hold Instructions: Resume on 01/19/22. Rx Instructions: Take one tablet by mouth daily. Ozempic 1 mg/dose (4 mg/3 mL) pen injector 2 mg SUBCUT .weekly Qty: 27 3RF Hold Instructions: Resume on 01/19/22. Rx Instructions: Inject 2 mg subcut once a week. No Action tretinoin 0.025 % cream 1 applic topical Q2D Qty: 45 3RF levothyroxine 25 mcg tablet 25 mcg PO DAILY Qty: 90 3RF Jardiance 10 mg tablet 10 mg PO DAILY Qty: 90 3RF Discharge Orders: Discharge ED (Routine); Ordered 12/22/21 Ordered By: Wang Navarro Referrals: Kenny Zabala MD [Primary Care Provider] - Discharge Diet: Clear Liquid Discharge Activity: Increase activity as tolerated Patient Instructions: Abdominal Pain (ED), Opioid Safety Activity Restrictions/Additional Instructions: Clear liquid diet for 48 hours then advance as tolerated. Increase Protonix to 40 mg twice daily for 10 to 14 days. Hold metformin and Ozempic. adult family home program manager will make arrangements for you to have a HIDA scan and follow-up with Dr. Landeros. Coding Level of Care Code ED Molding Sander for Chg Fwd Exam Comprehensive
[2021-12-22] MEDS: sodium chloride 0.9% 1,000 ML 999 ML IV (16:25)
[2021-12-22 16:47] LABS: Alanine Aminotransferase 26 U/L (0-33); Albumin Level 4.5 g/dL (3.5-5.2); Alkaline Phosphatase 93 IU/L (35-105); Anion Gap 16.9 (5-19); Aspartate Amino Transferase 22 U/L (0-32); Blood Urea Nitrogen 8 mg/dL (6-20); Calcium 9.6 mg/dL (8.5-10.5); Carbon Dioxide 21 mmol/L (22-29); Chloride 104 mmol/L (98-107); Globulin 3.9 g/dL (1.3-4.6); Glomerular Filtration Rate 114.4 mL/min (90-130); Glucose 85 mg/dL (65-115); Lipase 30 U/L (13-60); Osmolality Calculated 284 mOsm/kg (285-295); Potassium 3.9 mmol/L (3.5-5.1); Sodium 138 mmol/L (136-145); Total Bilirubin 0.3 mg/dL (0.15-1.2); Total Protein 8.4 g/dL (6.6-8.7)
[2021-12-22 17:01] LABS: HCG, Serum Qual Negative (Negative)
[2021-12-22] MEDS: iohexol 300 mg/mL 100 mL Btl IV (17:25)
--- NOTE | 2021-12-23 07:07 | DCPLANNER ---
Addendum entered by Luz Marina Schumacher 04/13/22 11:41: horse racetrack manager received the following message from centralized scheduling regarding out patient test: cancelled per pt request Addendum entered by Luz Marina Schumacher 12/28/21 15:19: Patient had a follow up appointment scheduled for 12.27.[address] Luevano at general surgery - appointment was cancelled. Original Note: horse racetrack manager had message to schedule a follow up appointment for patient with an out patient HIDA scan. horse racetrack manager faxed a signed order to centralized scheduling, who will call patient with appointment information. horse racetrack manager also had message to schedule a follow up appointment for patient with general surgery. horse racetrack manager sent patients information to the front office staff at general surgery. Patients information will be printed and reviewed. Clinic will call patient with appointment information.
== END 2021-12-22 16:28 | disposition home or self-care (01) ==
PROVIDERS: Emergency Provider Family Medicine; PCP Internal Medicine
DX: K80.50 Calculus of bile duct without cholangitis or cholecystitis without obstruction (principal); T50.995A Adverse effect of other drugs, medicaments and biological substances, initial encounter; R11.2 Nausea with vomiting, unspecified
CPT/HCPCS: 74177; 76705; 80053; 83690; 84703; 85025; 93005; 96360; 99285; J7030; Q9967

== ENCOUNTER 2022-01-02 07:36 | Day surgery (SDC) | payer OTHER, SELFPAY ==
[2021-12-29 09:25] VITALS: BMI 36.2
--- NOTE | 2022-01-02 07:56 | W.PM.OPSFHP ---
Same Day Surgery H&P Indication for Procedure/HPI DATE OF PROCEDURE: January 02, 2022 CHIEF COMPLAINT/INDICATIONFOR SURGICAL PROCEDURE: Postprandial epigastric pain PREOP DIAGNOSIS: IUP PLANNED PROCEDURE: Operation Date: 01/02/22 10:00 Proposed Procedures p EGD 59928,K80.50(Not Applicable) - Kenny Zabala MD Medications/Allergies* Allergies/Adverse Reactions Allergy/AdvReac Type Severity Reaction Status Date / Time No Known Allergies Allergy Verified 12/29/21 09:23 Pertinent History/Comorbid Conditions* Medical History (Updated 12/30/21 @ 00:01 by ) Anemia Reports being chronically anemic--states work-up has been done which only showed iron deficiency-have requested these records Cyst, ovary, dermoid Reports being diagnosed with a dermoid cyst either 4 mm or 4 cm in one of her ovaries in 2014. She states that she had serial ultrasounds that showed no growth and at the time of her in 2016 she was told that it resolved and she never had any surgical intervention. Hypothyroidism Diagnosed in 2016 and has been on medication. Reports that she is not very compliant with taking the medication. No pertinent past medical history Denies diabetes, asthma, hypertension, seizures, DVT/PE PCP:None Pituitary microadenoma Reports being diagnosed with a pituitary microadenoma in 2013 when she was undergoing evaluation for elevated prolactin. She had follow-up MRIs and was told everything was stable. She has not have this reevaluated since 2014. Recommend follow-up with endocrinology . She is asymptomatic Surgical History (Updated 09/29/21 @ 11:40 by Clarisa Mcclellan MD) History of bunionectomy 2007 - Left foot History of delivery x2 04/17/2021-done by Dr. Wayne Hunter in [facility]. ----->Operative reports have been requested and received and scanned. Low transverse delivery for failure to progress-single layer closure with no extensions documented. 08/16/2021--schedule repeat delivery at 37 weeks for poorly controlled gestational diabetes. Performed by Dr. Teague at [facility]. History of tonsillectomy and adenoidectomy 2003 Family History (Updated 02/09/21 @ 14:06 by Trish Walton RN) Diabetes Grandfather maternal Mother Grandmother maternal Brother Heart disease Family/Other paternal aunt, paternal uncle Cancer Grandfather maternal, Lymphoma Hypertension Grandfather Mother Grandmother maternal Thyroid disease Family/Other maternal uncle Denies family history of Colon cancer Ovarian cancer Hypercholesteremia Breast cancer Uterine cancer Stroke Social History Smoking and tobacco status: never smoked Pertinent Exam Findings alert, oriented x 3, clear to auscultation bilaterally, regular rate & rhythm, operative site marked and procedure specific exam findings Recommendations Surgery/Procedure today Coding Level of Care Code Acute Flare Breaker for Antonia Frye
[2022-01-02 08:36] VITALS: BP 104/68; PULSE 75; RESP 18; TEMP 36.4; O2SAT 97
[2022-01-02] MEDS: sodium chloride 0.9% 1,000 ML 30 ML IV (08:44)
--- NOTE | 2022-01-02 09:50 | ANES.PREANE2 ---
Pre-Anesthetic Assessment Height/Weight: Height 1.57 m Weight 89.811 kg Temp Pulse Resp BP Pulse Ox 97.6 F 75 18 104/68 97 01/02/22 08:36 01/02/22 08:36 01/02/22 08:36 01/02/22 08:36 01/02/22 08:36 Preop Diagnosis: Epigastric pain Operation Date: 01/02/22 10:00 Proposed Procedures p EGD 56709,K80.50(Not Applicable) - Kenny Zabala MD Familial anesthetic complications: none Was Beta Bridgett taken within 24 hours: N/A Was Clonidine taken within 24 hours: N/A Last intake: Intake Last Liquid Date 01/01/22 Last Liquid Time 21:00 Last Solid Date 01/01/22 Last Solid Time 19:00 Social No alcohol and No tobacco Exam alert, oriented x 3, clear to auscultation bilaterally and regular rate & rhythm Airway Submandibular: within normal limits Cervical ROM: within normal limits Mallampati: Class II Dentition: full GI Gastroesophageal Reflux Disease Metabolic Diabetes Mellitus and Thyroid Disease Anesthetic Plan ASA status: 2 Anesthesia: MAC Medications/Allergies Home Medications Medication Instructions Recorded Confirmed Last Taken Type metformin 500 mg tablet,extended 500 mg PO DAILY #90 tab 11/17/21 12/29/21 Unknown Rx release 24 hr levothyroxine 25 mcg tablet 25 mcg PO DAILY #90 tab 11/23/21 12/29/21 Unknown Rx tretinoin 0.025 % topical cream 1 applic TOPICAL Q2D #45 g 12/14/21 12/29/21 Unknown Rx metoclopramide HCl 10 mg tablet 10 mg PO Q6H PRN #20 tab 12/22/21 12/29/21 Unknown Rx (Reglan) ondansetron HCl 4 mg tablet 4 mg PO Q6H PRN #20 tab 12/22/21 12/29/21 Unknown Rx pantoprazole 40 mg tablet,delayed 40 mg PO BID #90 tab 12/22/21 12/29/21 Unknown Rx release empagliflozin 10 mg tablet 10 mg PO DAILY #90 tab 12/23/21 12/29/21 Unknown Rx (Jardiance) Allergies Allergy/AdvReac Type Severity Reaction Status Date / Time No Known Allergies Allergy Verified 12/29/21 09:23 Current Medications Generic Name Dose Route Start Last Admin Trade Name Freq PRN Reason Stop Dose Admin Sodium Chloride 1,000 mls @ 30 mls/hr 01/02/22 08:00 01/02/22 08:44 Sodium Chloride 0.9% IV 30 mls/hr .Q24H DANIS Administration PFSH Anesthesia Medical History Anemia Reports being chronically anemic--states work-up has been done which only showed iron deficiency-have requested these records Cyst, ovary, dermoid Reports being diagnosed with a dermoid cyst either 4 mm or 4 cm in one of her ovaries in 2014. She states that she had serial ultrasounds that showed no growth and at the time of her in 2017 she was told that it resolved and she never had any surgical intervention. Hypothyroidism Diagnosed in 2017 and has been on medication. Reports that she is not very compliant with taking the medication. No pertinent past medical history Denies diabetes, asthma, hypertension, seizures, DVT/PE PCP:None Pituitary microadenoma Reports being diagnosed with a pituitary microadenoma in 2013 when she was undergoing evaluation for elevated prolactin. She had follow-up MRIs and was told everything was stable. She has not have this reevaluated since 2014. Recommend follow-up with endocrinology . She is asymptomatic Surgical History History of bunionectomy 2008 - Left foot History of delivery x2 04/17/2021-done by Dr. Wayne Hunter in [facility]. ----->Operative reports have been requested and received and scanned. Low transverse delivery for failure to progress-single layer closure with no extensions documented. 08/16/2021--schedule repeat delivery at 37 weeks for poorly controlled gestational diabetes. [place] [facility] History of tonsillectomy and adenoidectomy 2003 Family History Grandfather Cancer maternal, Lymphoma Diabetes maternal Hypertension Mother Diabetes Hypertension Grandmother Diabetes maternal Hypertension maternal Family/Other Thyroid disease maternal uncle Heart disease paternal aunt, paternal uncle Brother Diabetes Denies family history of Colon cancer Ovarian cancer Hypercholesteremia Breast cancer Uterine cancer Stroke Social History Smoking and tobacco status: never smoked Data Anesthesia Cardiac Studies: No Data to Display
[2022-01-02 10:31] VITALS: BP 101/64; PULSE 92; RESP 16; TEMP 36.1; O2SAT 96
[2022-01-02 10:40] VITALS: BP 123/85; PULSE 77; RESP 16; O2SAT 100
[2022-01-02 10:51] VITALS: BP 135/81; PULSE 80; RESP 16; O2SAT 98
[2022-01-02 11:01] VITALS: BP 104/85; PULSE 73; RESP 16; O2SAT 100
--- NOTE | 2022-01-02 13:52 | ANE.PACU2 ---
Inpatient post-anesthesia follow up: Airway intact: Yes Vital signs: Temperature 97.0 F Pulse Rate 73 Respiratory Rate 16 Blood Pressure 104/85 Pulse Oximetry 100 Oxygen Delivery Me thod Room Air Oxygen Flow Rate 3 Fraction of Inspir ed Oxygen Hydration adequate: Yes Nausea and vomiting: No Pain level: 1 Mental status: Baseline
[2022-01-03 13:51] LABS: H. Pylori / CLO Test Negative
== END 2022-01-02 11:15 | disposition home or self-care (01) ==
PROVIDERS: PCP Internal Medicine; Visit Provider Internal Medicine
PROC: 0DJ08ZZ Inspection of Upper Intestinal Tract, Via Natural or Artificial Opening Endoscopic (ICD-10-PCS; CPT 43235; principal; 2022-01-02 10:00)
DX: R10.13 Epigastric pain (principal); K29.70 Gastritis, unspecified, without bleeding; E11.9 Type 2 diabetes mellitus without complications; Z79.84 Long term (current) use of oral hypoglycemic drugs; E03.9 Hypothyroidism, unspecified
CPT/HCPCS: 43239; 87077; J2704; J7030

== ENCOUNTER 2022-01-03 10:36 | Day surgery (SDC) | payer OTHER, SELFPAY ==
[2022-01-02 16:04] VITALS: BMI 35.6
[2022-01-03] VITALS (21 sets, daily range): BP systolic 85–125; BP diastolic 53–85; PULSE 72–96; RESP 14–23; TEMP 36.1–36.4; O2SAT 93–100
[2022-01-03 11:11] LABS: OR HCG Qualitative Urine Negative (Negative)
--- NOTE | 2022-01-03 11:26 | P.ANESASSM_ITS ---
Pre-Anesthetic Assessment Height/Weight: Height 1.57 m Weight 88.451 kg Temp Pulse Resp BP Pulse Ox 97.6 F 72 18 115/68 99 01/03/22 11:06 01/03/22 11:06 01/03/22 11:06 01/03/22 11:06 01/03/22 11:06 Preop Diagnosis: cholelithiasis Operation Date: 01/03/22 12:00 Proposed Procedures p Laparoscopic Cholecystectomy 28617,K80.5(Not Applicable) - Gildardo Luevano MD Familial anesthetic complications: None Was Beta Bridgett taken within 24 hours: N/A Was Clonidine taken within 24 hours: N/A Last intake: Intake Last Liquid Date 01/02/22 Last Liquid Time 19:00 Last Solid Date 01/02/22 Last Solid Time 18:00 Social No alcohol and No tobacco Exam alert, oriented x 3, clear to auscultation bilaterally and regular rate & rhythm Airway Submandibular: within normal limits Cervical ROM: within normal limits Mallampati: Class II Dentition: full GI Gastroesophageal Reflux Disease Metabolic Diabetes Mellitus and Thyroid Disease Anesthetic Plan ASA status: 2 Anesthesia: General Medications/Allergies Home Medications Medication Instructions Recorded Confirmed Last Taken Type metformin 500 mg tablet,extended 500 mg PO DAILY #90 tab 11/17/21 01/03/22 12/31/21 Rx release 24 hr levothyroxine 25 mcg tablet 25 mcg PO DAILY #90 tab 11/23/21 01/03/22 12/31/21 Rx tretinoin 0.025 % topical cream 1 applic TOPICAL Q2D #45 g 12/14/21 01/03/22 12/31/21 Rx metoclopramide HCl 10 mg tablet 10 mg PO Q6H PRN #20 tab 12/22/21 01/03/22 12/31/21 Rx (Reglan) ondansetron HCl 4 mg tablet 4 mg PO Q6H PRN #20 tab 12/22/21 01/03/22 12/31/21 Rx pantoprazole 40 mg tablet,delayed 40 mg PO BID #90 tab 12/22/21 01/03/22 12/31/21 Rx release empagliflozin 10 mg tablet 10 mg PO DAILY #90 tab 12/23/21 01/03/22 12/31/21 Rx (Jardiance) Allergies Allergy/AdvReac Type Severity Reaction Status Date / Time No Known Allergies Allergy Verified 01/03/22 11:01 [facility] Anesthesia Medical History (Updated 01/03/22 @ 09:36 by Gildardo Luevano MD) Anemia Reports being chronically anemic--states work-up has been done which only showed iron deficiency-have requested these records Cyst, ovary, dermoid Reports being diagnosed with a dermoid cyst either 4 mm or 4 cm in one of her ovaries in 2014. She states that she had serial ultrasounds that showed no growth and at the time of her in 2016 she was told that it resolved and she never had any surgical intervention. Hypothyroidism Diagnosed in 2017 and has been on medication. Reports that she is not very compliant with taking the medication. Pituitary microadenoma Reports being diagnosed with a pituitary microadenoma in 2013 when she was undergoing evaluation for elevated prolactin. She had follow-up MRIs and was told everything was stable. She has not have this reevaluated since 2014. Recommend follow-up with endocrinology . She is asymptomatic Surgical History History of bunionectomy 2008 - Left foot History of delivery x2 04/17/2021-done by Dr. Wayne Hunter in [facility]. ----->Operative reports have been requested and received and scanned. Low transverse delivery for failure to progress-single layer closure with no extensions documented. 08/16/2021--schedule repeat delivery at 37 weeks for poorly controlled gestational diabetes. Performed by Dr. Teague at [facility]. History of tonsillectomy and adenoidectomy 2004 Family History Grandfather Cancer maternal, Lymphoma Diabetes maternal Hypertension Mother Diabetes Hypertension Grandmother Diabetes maternal Hypertension maternal Family/Other Thyroid disease maternal uncle Heart disease paternal aunt, paternal uncle Brother Diabetes Denies family history of Colon cancer Ovarian cancer Hypercholesteremia Breast cancer Uterine cancer Stroke Social History Smoking and tobacco status: never smoked Data Anesthesia Cardiac Studies: No Data to Display
[2022-01-03] MEDS: sodium chloride 0.9% 1,000 ML 30 ML IV (11:54)
[2022-01-03] MEDS: scopolamine 1.5 Patch 1 PATCH TRANSDERMA (11:55)
[2022-01-03] MEDS: midazolam 1 mg/mL INJ 2 mL 2 MG IVP (12:16)
[2022-01-03 12:19] LABS: Glucose Point of Care 69 mg/dL (70-110)
--- NOTE | 2022-01-03 12:23 | P.HP_ITS ---
Same Day Surgery H&P Indication for Procedure/HPI DATE OF PROCEDURE: January 03, 2022 CHIEF COMPLAINT/INDICATIONFOR SURGICAL PROCEDURE: lap mauro PREOP DIAGNOSIS: cholelithiasis PLANNED PROCEDURE: Operation Date: 01/03/22 12:00 Proposed Procedures p Laparoscopic Cholecystectomy 61304,K80.5(Not Applicable) - Gildardo Luevano MD Medications/Allergies* Allergies/Adverse Reactions Allergy/AdvReac Type Severity Reaction Status Date / Time No Known Allergies Allergy Verified 01/03/22 11:01 Current Medications: Generic Name Dose Route Start Last Admin Trade Name Freq PRN Reason Stop Dose Admin Sodium Chloride 1,000 mls @ 30 mls/hr 01/03/22 10:45 01/03/22 11:54 Sodium Chloride 0.9% IV 01/04/22 10:44 30 mls/hr .Q24H DANIS Administration Midazolam HCl 2 mg 01/03/22 10:42 01/03/22 12:16 Midazolam 1 Mg/Ml Inj 2 Ml IVP 0.5 mg Q5M PRN Administration Preop Anxiety Pertinent History/Comorbid Conditions* Medical History (Updated 01/03/22 @ 09:36 by Gildardo Luevano MD) Anemia Reports being chronically anemic--states work-up has been done which only showed iron deficiency-have requested these records Cyst, ovary, dermoid Reports being diagnosed with a dermoid cyst either 4 mm or 4 cm in one of her ovaries in 2014. She states that she had serial ultrasounds that showed no growth and at the time of her in 2016 she was told that it resolved and she never had any surgical intervention. Hypothyroidism Diagnosed in 2016 and has been on medication. Reports that she is not very compliant with taking the medication. Pituitary microadenoma Reports being diagnosed with a pituitary microadenoma in 2013 when she was undergoing evaluation for elevated prolactin. She had follow-up MRIs and was told everything was stable. She has not have this reevaluated since 2014. Recommend follow-up with endocrinology . She is asymptomatic Surgical History (Updated 01/03/22 @ 12:23 by Gildardo Luevano MD) H/O esophagogastroduodenoscopy History of bunionectomy 2007 - Left foot History of delivery x2 04/17/2021-done by Dr. Wayne Hunter in [facility]. ----->Operative reports have been requested and received and scanned. Low transverse delivery for failure to progress-single layer closure with no extensions documented. 08/16/2021--schedule repeat delivery at 37 weeks for poorly controlled gestational diabetes. Performed by Dr. Teague at [facility]. History of tonsillectomy and adenoidectomy 2003 Status post laparoscopic cholecystectomy (01/03/22) Family History (Updated 02/09/21 @ 14:06 by Trish Walton RN) Diabetes Grandfather maternal Mother Grandmother maternal Brother Heart disease Family/Other paternal aunt, paternal uncle Cancer Grandfather maternal, Lymphoma Hypertension Grandfather Mother Grandmother maternal Thyroid disease Family/Other maternal uncle Denies family history of Colon cancer Ovarian cancer Hypercholesteremia Breast cancer Uterine cancer Stroke Social History Smoking and tobacco status: never smoked Pertinent Exam Findings alert, oriented x 3 and regular rate & rhythm Recommendations Surgery/Procedure today Coding Level of Care Code Acute Remediation [employer] Consultant for Antonia Frye
--- NOTE | 2022-01-03 13:16 | P.OP_ITS ---
Operative Report Date of procedure: January 03, 2022 Pre-op diagnosis: Cholelithiasis Umbilical hernia Post-op diagnosis: same Post-op diagnosis: Cholelithiasis 1.5 cm umbilical hernia Procedure done: 1. Laparoscopic cholecystectomy 2. Open repair of umbilical hernia Anesthesia: General Condition: stable Disposition: PACU Procedure: The patient was taken to the operating room and was intubated under general ane sthesia. After the antibiotic had been administered, the abdomen was prepped and draped in a sterile manner. Using a #15 blade, a 1 centimeter infraumbilical curvilinear incision was made and using an open Jennie technique the peritoneal cavity was entered. A 10 millimeter port was placed and 15 millimeters of pneumoperitoneum was created. A 10 millimeter, 30 degrees scope was then introduced. Three 5 millimeter ports were placed in the epigastric, midclavicular and the anterior axillary line two fingerbreadths below the costal margin on the right side under the direct visualization. Ratcheted forceps were introduced into the lateral most port and was used to retract the fundus of the gallbladder cephalad and using forceps the infundibulum of the gallbladder was retracted laterally. Using L-hook cautery the peritoneum overlying the Calot's triangle was opened medially and laterally until the cystic duct and the cystic artery were skeletonized. Dissection was carried along the body of the gallbladder and after ensuring critical view of safety, 4 clips applied on the cystic duct and 3 clips applied on the cystic artery and cut leaving, 3 clips on the remaining portion of the duct and 2 clips on the remaining portion of the artery. The rest of the gallbladder was dissected off the liver using L-hook cautery. There was no bleeding or bile leaking noted from the gallbladder fossa and the clips appeared to be in place. An EndoCatch bag was introduced to remove the gallbladder. All the ports were removed under direct visualization and there was no bleeding noted from the port sites. The hernia sac at the umbilicus was dissected free from the surrounding subcutaneous tissue and excised. The fascia of the umbilicus was closed using [id number] 0 Vicryl sutures and the subcutaneous tissue was approximated using 3-0 Vicryl sutures. The skin at all four ports were closed using 4-0 Monocryl and Dermabond. A total of 10 millimeters of 0.25% Marcaine was infiltrated around the port sites. The patient was stable throughout the procedure, extubated and transferred to recovery room
[2022-01-03] MEDS: fentaNYL 50 mcg/mL INJ 2mL IVP (13:39)
[2022-01-03] MEDS: ondansetron 2 mg/ML SDV 2 mL 4 MG IVP ×2 (13:47→15:35)
[2022-01-03] MEDS: HYDROmorphone 1 mg/mL INJ 1 mL 0.5 MG IVP ×3 (13:49→14:16)
--- NOTE | 2022-01-03 13:52 | PC.NURSE ---
DR GOODWIN OKAYED MOVING TO [facility] AFTER ONE DOSE OF FENTANYL UNRELEIVED PAIN. ZOFRAN GIVEN FOR NAUSEA WELL.
[2022-01-03] MEDS: HYDROcodone-acetaminophen 5-325 mg Tablet 1 TAB PO (15:03)
[2022-01-03] MEDS: metoclopramide 5 mg/mL SDV 2 mL IVP (15:34)
--- NOTE | 2022-01-04 17:09 | ANE.PACU2 ---
Inpatient post-anesthesia follow up: Airway intact: Yes Vital signs: Temperature 97.5 F Pulse Rate 82 Respiratory Rate 16 Blood Pressure 106/72 Pulse Oximetry 94 Oxygen Delivery Me thod Room Air Oxygen Flow Rate Fraction of Inspir ed Oxygen Hydration adequate: Yes Nausea and vomiting: No Pain level: 1 Mental status: Baseline
== END 2022-01-03 17:05 | disposition home or self-care (01) ==
PROVIDERS: Anesthesiology; PCP Internal Medicine; Visit Provider Surgery
PROC: 0FT44ZZ Resection of Gallbladder, Percutaneous Endoscopic Approach (ICD-10-PCS; CPT 47562; principal; 2022-01-03 12:00)
DX: K80.10 Calculus of gallbladder with chronic cholecystitis without obstruction (principal); K42.9 Umbilical hernia without obstruction or gangrene; K21.9 Gastro-esophageal reflux disease without esophagitis; E03.9 Hypothyroidism, unspecified
CPT/HCPCS: 47562; 49585; 36416; 82962; 84703; 88304; J1100; J1170; J1200; J2250; J2370; J2405; J2704; J2710; J2765; J3010; J3490; J7030

== ENCOUNTER 2022-01-05 12:22 | Emergency (ER) | payer OTHER, SELFPAY ==
[2022-01-05] VITALS (12 sets, daily range): BP systolic 108–135; BP diastolic 49–104; PULSE 84–98; RESP 14–20; TEMP 36.7; O2SAT 98–100; BMI 35.6
--- NOTE | 2022-01-05 12:25 | W.ED.GENADLT ---
HPI - General Adult General: Chief complaint: Abdominal Pain Stated complaint: ABDOMINAL PAIN S/P SURGERY Time Seen by Provider: 01/05/22 12:25 History of Present Illness: Patient is a 36-year-old female with a history of hypothyroidism who underwent laparoscopic cholecystectomy and umbilical hernia repair on 01/03/2022 presenting to the emergency room for concerns of worsening abdominal pain and N/V since surgery. Patient tells me that she was discharged on 01/03/2022. Since her discharge patient has had continued right upper quadrant and right upper back pain below the scapula. The pain worsened over the last 2 days and today has been constant. Patient also report multiple episodes of emesis today. Patient denies any fever or chills, diarrhea. Patient tells me that she has been able to stool with laxative. Patient reports decreased p.o. intake. Patient denies any urinary complaints at this time. Patient denies any chest pain, shortness breath, cough, runny nose sore throat. When patient takes a deep breath, she reports back pain and right upper abdominal pain. Patient denies hemoptysis or leg swelling. Onset:3 days ago, acutely worsened today Duration:ongoing Location:home Severity:moderate Associated symptoms: Reports nausea and vomiting; Deny chest pain, dyspnea, rash or palpitations Review of Systems Const: Denies: fever(s) or chills Eyes: Denies: change in vision ENMT: Denies: mouth pain Card: Denies: chest pain or palpitations Resp: Denies: dyspnea or non-productive cough GI: Reports: abdominal pain (+R sided abdominal pain), nausea and vomiting; Denies: diarrhea : Denies: dysuria Musc: Reports: back pain (+R upper back pain below the scapula); Denies: extremity pain Skin/Breast: Denies: rash or new lesions Neuro: Denies: weakness in extremities Psych: Reports: other (Normal mood) Jeff/Lymph: Denies: easy bruising PFSH ED PFSH: Medical History Anemia Reports being chronically anemic--states work-up has been done which only showed iron deficiency-have requested these records Cyst, ovary, dermoid Reports being diagnosed with a dermoid cyst either 4 mm or 4 cm in one of her ovaries in 2014. She states that she had serial ultrasounds that showed no growth and at the time of her in 2017 she was told that it resolved and she never had any surgical intervention. Hypothyroidism Diagnosed in 2017 and has been on medication. Reports that she is not very compliant with taking the medication. Pituitary microadenoma Reports being diagnosed with a pituitary microadenoma in 2013 when she was undergoing evaluation for elevated prolactin. She had follow-up MRIs and was told everything was stable. She has not have this reevaluated since 2014. Recommend follow-up with endocrinology . She is asymptomatic Surgical History H/O esophagogastroduodenoscopy History of bunionectomy 2007 - Left foot History of delivery x2 04/17/2021-done by Dr. Wayne Hunter in [facility]. ----->Operative reports have been requested and received and scanned. Low transverse delivery for failure to progress-single layer closure with no extensions documented. 08/16/2021--schedule repeat delivery at 37 weeks for poorly controlled gestational diabetes. [place] [facility] History of tonsillectomy and adenoidectomy 2004 Status post laparoscopic cholecystectomy (01/03/22) Family History Grandfather Cancer maternal, Lymphoma Diabetes maternal Hypertension Mother Diabetes Hypertension Grandmother Diabetes maternal Hypertension maternal Family/Other Thyroid disease maternal uncle Heart disease paternal aunt, paternal uncle Brother Diabetes Denies family history of Colon cancer Ovarian cancer Hypercholesteremia Breast cancer Uterine cancer Stroke Social History Smoking and tobacco status: never smoked Physical Exam Const: COMMON NORMALS: alert HENMT: COMMON NORMALS: atraumatic HEAD & SCALP: atraumatic MOUTH: moist mucous membranes not abnormal Eye: COMMON NORMALS: EOMs intact bilaterally and conjunctivae normal CONJUNCTIVA: Yes conjunctivae normal Neck/C-Spine: COMMON NORMALS: full ROM and supple Resp: COMMON NORMALS: normal respiratory effort and clear to auscultation bilaterally AUSCULTATION: clear to auscultation bilaterally Cardio: COMMON NORMALS: regular rate RATE: regular rate GI: COMMON NORMALS: Soft to palpation PALPATION: Yes Soft to palpation OTHER: + Moderate right lower quadrant and right upper quadrant tenderness to palpation, mild voluntary guarding, no involuntary guarding or rebound tenderness Extremity: COMMON NORMALS: full ROM Neuro: SENSORIUM/ORIENTATION: Yes alert MOTOR EXAM: No Abnormal motor strength present and Other motor observations present (no focal motor deficits) Psych: COMMON NORMALS: speech normal SPEECH: Yes normal speech MOOD & AFFECT: Yes euthymic mood Course Vital Signs: Vital signs: Vital Signs Temperature 98.1 F 01/05/22 16:25 Pulse Rate 95 01/05/22 18:14 Respiratory Rate 18 01/05/22 18:14 Blood Pressure 127/90 01/05/22 18:14 Pulse Oximetry 100 01/05/22 18:14 MDM - General Adult Medical Decision Making 36-year-old female with a history of recent cholecystectomy and umbilical hernia repair who presents the emergency room with concerns of cyst and now worsening right side abdominal pain x 3 days after surgery. Physical exam, patient is hemodynamically stable. Patient has moderate tenderness palpation of the RUQ and RLQ without any guarding or rebound tenderness. Patient received IV morphine, Zofran and IVF reported mild symptomatic improvement. Given concerns of upper back pain recent surgery, as well as abdominal pain, this is concerning for possible PE versus acute intra-abdominal pathologies. Decision was made to order CTA chest abdomen pelvis for further evaluation at this time. CT negative for any acute findings. Dr. Luevano evaluated patient at bedside and recommend additional pain control. Dr. Luevano wrote the a prescription for pain medicine. Patient report pain significantly improved after multiple doses of pain medicine and antiemetic. Patient at this time elects to go home with close follow-up. Rx reglan PRN N/V, maalox/pepcid PRN dyspepsia Disposition: Discharge. Patient counseled regarding diagnostic impression, treatment plan. Patient given ED strict return precautions to return for continuation, worsening, or development of new symptoms. Instructed to f/u w/ PCP regarding symptoms today. Patient verbalized understanding. Lab Data : 01/05/22 12:40 01/05/22 13:53 Radiology Impressions Chest/Abdomen/Pelvis CT 01/05/22 12:39 IMPRESSION: 1. No pulmonary embolism or pneumonia. 2. Status post cholecystectomy. No biloma or abscess at the gallbladder bed. 3. Recent postsurgical inflammatory changes along the anterior abdominal wall near the umbilicus. At this time there is no abscess. There is a tiny focus of air which is probably all related to normal postoperative change. 4. Small mesenteric lymph nodes in the RIGHT lower quadrant. Probably due to mesenteric adenitis. Laboratory Results WBC 9.7 10^3/uL (4.0-10.0) 01/05/22 12:40 RBC 4.14 10^6/uL (4.1-5.3) 01/05/22 12:40 Hgb 12.0 g/dL (11.5-15.3) 01/05/22 12:40 Hct 35.0 % (37.0-47.0) L 01/05/22 12:40 MCV 84.5 fl (81-99) 01/05/22 12:40 MCH 29.0 pg (28.0-34.0) 01/05/22 12:40 MCHC 34.3 g/dL (30.0-36.0) 01/05/22 12:40 RDW 13.3 % (12.1-15.1) 01/05/22 12:40 Plt Count 254 10^3/cmm (130-400) 01/05/22 12:40 MPV 11.2 fL (7.4-10.4) H 01/05/22 12:40 Neut % (Auto) 55.2 % 01/05/22 12:40 Lymph % (Auto) 36.4 % 01/05/22 12:40 Wood % (Auto) 5.9 % 01/05/22 12:40 Eos % (Auto) 1.7 % 01/05/22 12:40 Baso % (Auto) 0.5 % 01/05/22 12:40 Neut # (Auto) 5.34 10^3/uL (1.8-7.7) 01/05/22 12:40 Lymph # (Auto) 3.5 10^3/uL (0.8-4.8) 01/05/22 12:40 Wood # (Auto) 0.6 10^3/uL (0.2-0.9) 01/05/22 12:40 Eos # (Auto) 0.2 10^3/uL (0.0-0.8) 01/05/22 12:40 Baso # (Auto) 0.1 10^3/uL (0.0-0.1) 01/05/22 12:40 Nucleated RBC % (auto) 0 % 01/05/22 12:40 Nucleated RBCs # 0.0 /100WBC 01/05/22 12:40 Sodium 137 mmol/L (136-145) 01/05/22 13:53 Potassium 3.6 mmol/L (3.5-5.1) 01/05/22 13:53 Chloride 105 mmol/L (98-107) 01/05/22 13:53 Carbon Dioxide 22 mmol/L (22-29) 01/05/22 13:53 Anion Gap 13.6 (5-19) 01/05/22 13:53 BUN 7 mg/dL (6-20) 01/05/22 13:53 Creatinine 0.6 mg/dL (0.5-0.9) 01/05/22 13:53 GFR Calculation 114.4 mL/min (90-130) 01/05/22 13:53 Glucose 69 mg/dL (65-115) 01/05/22 13:53 Calculated Osmolality 280 mOsm/kg (285-295) L 01/05/22 13:53 Lactate 1.4 mmol/L (0.5-2.2) 01/05/22 12:40 Calcium 8.7 mg/dL (8.5-10.5) 01/05/22 13:53 Total Bilirubin 0.3 mg/dL (0.15-1.2) 01/05/22 13:53 AST 14 U/L (0-32) 01/05/22 13:53 ALT 16 U/L (0-33) 01/05/22 13:53 Alkaline Phosphatase 70 IU/L (35-105) 01/05/22 13:53 Total Protein 6.8 g/dL (6.6-8.7) 01/05/22 13:53 Albumin 3.7 g/dL (3.5-5.2) 01/05/22 13:53 Globulin 3.1 g/dL (1.3-4.6) 01/05/22 13:53 Lipase 31 U/L (13-60) 01/05/22 13:53 HCG, Qual Negative (Negative) 01/05/22 12:40 Urine Color Yellow (Yellow) 01/05/22 13:43 Urine Appearance Clear (CLEAR) 01/05/22 13:43 Urine pH 7 (5-7) 01/05/22 13:43 Ur Specific [place] 1.005 (1.005-1.030) 01/05/22 13:43 Urine Protein Neg (Negative) 01/05/22 13:43 Urine Glucose (UA) Norm (Normal) 01/05/22 13:43 Urine Ketones Negative (Negative) 01/05/22 13:43 Urine Blood Neg (Negative) 01/05/22 13:43 Urine Nitrate Negative (Negative) 01/05/22 13:43 Urine Bilirubin Neg (Negative) 01/05/22 13:43 Urine Urobilinogen Norm mg/dL (Negative) 01/05/22 13:43 Ur Leukocyte Esterase Negative (Negative) 01/05/22 13:43 Imaging Data Other Imaging: Radiologist's impression: [facility] [place] [address] CT Scan Report Signed Patient: Viola Piper Unit #: [id number] : 1985 Age/Sex: 36 / F ADM Date: 01/05/22 Loc: ER Room/Bed: Attending Dr: Ordering Provider/Ordering MD: Mikaela Lester MD Date of Service: 01/05/22 Procedure(s): CT angio chest w abd pel w con Accession Number(s): [id number] Report Number: [id number] WS: [id number] CTA CHEST WITH CT ABDOMEN AND PELVIS. HISTORY: RIGHT upper quadrant abdominal pain, gallbladder and hernia surgery 2 days ago. TECHNIQUE: CT angiogram is performed through the chest. Additional imaging is performed through the abdomen and pelvis with IV contrast. Sagittal and coronal reformats have been submitted.? MIP imaging also reviewed. [facility] use at least one of these dose optimization techniques: automated exposure control; mA and/or kV adjustment per patient size (includes targeted exams where dose is matched to clinical indication); or iterative reconstruction. Contrast: Omnipaque 350; 95 cc IV. DLP: 1633.27 mGy.cm COMPARISON: 12/22/2021 Chest CTA: Good opacification of the pulmonary arteries. No filling defect. No pulmonary embolism. Normal thoracic aorta. Normal size heart. No pneumothorax or pleural effusion. No pneumonia. Small hiatal hernia. Abdomen CT: Liver is mildly enlarged. Normal enhancement. Cholecystectomy. No fluid or abscess at the gallbladder bed. Normal spleen and pancreas. Normal adrenal glands. No renal obstruction or inflammation. Normal aorta. No GI tract obstruction. There are a few prominent lymph nodes in the RIGHT lower quadrant. The appendix is normal. Postsurgical changes along the anterior abdominal wall. Tiny focus of air at the surgical incision site. There is mild inflammation but no abscess. Pelvic CT: No free fluid. No adenopathy. Normal appearance of the uterus and ovaries. Well-distended bladder. CT/CT angio chest w abd pel w con IMPRESSION: ? 1.? No pulmonary embolism or pneumonia. 2.? Status post cholecystectomy. No biloma or abscess at the gallbladder bed. 3.? Recent postsurgical inflammatory changes along the anterior abdominal wall near the umbilicus. At this time there is no abscess. There is a tiny focus of air which is probably all related to normal postoperative change. 4.? Small mesenteric lymph nodes in the RIGHT lower quadrant. Probably due to mesenteric adenitis. ? ? ? Dictated By: Albania Santana DO Signed By: Albania Santana DO Signed Date/Time: 01/05/22 1421 DD/ 1403 Discharge Plan Discharge Patient Disposition: Home Clinical Impression: Abdominal pain, Nausea & vomiting Condition: Stable Prescriptions: New acetaminophen 500 mg tablet 500 mg PO Q6H PRN (Reason: pain) 5 Days Qty: 20 0RF Pepcid 20 mg tablet 20 mg PO BID PRN (Reason: abdominal pain) 10 Days Qty: 20 0RF Reglan 5 mg tablet 5 mg PO BID PRN (Reason: nausea and vomiting) 5 Days Qty: 10 0RF No Action metformin 500 mg tablet extended release 24 hr 500 mg PO DAILY Qty: 90 3RF Hold Instructions: Resume on 01/19/22. Rx Instructions: Take one tablet by mouth daily. tretinoin 0.025 % cream 1 applic topical Q2D Qty: 45 3RF levothyroxine 25 mcg tablet 25 mcg PO DAILY Qty: 90 3RF Jardiance 10 mg tablet 10 mg PO DAILY Qty: 90 3RF ondansetron HCl 4 mg tablet 4 mg PO Q6H PRN (Reason: nausea and vomiting) Qty: 20 0RF metoclopramide HCl [Reglan] 10 mg tablet 10 mg PO Q6H PRN (Reason: nausea and vomiting) Qty: 20 0RF pantoprazole 40 mg tablet,delayed release (DR/EC) 40 mg PO BID Qty: 90 3RF sennosides-docusate sodium [Senna with Docusate Sodium] 8.6-50 mg tablet 1 tab-cap PO BID Qty: 30 0RF hydrocodone-acetaminophen 5-325 mg tablet 1 tab PO Q6H PRN (Reason: pain) Qty: 20 0RF Percocet 5-325 mg tablet 1 tab PO Q6H PRN (Reason: pain) Qty: 20 0RF Discharge Orders: Discharge ED (Routine); Ordered 01/05/22 Ordered By: Mikaela Lester Referrals: Kenny Zabala MD [Primary Care Provider] - Discharge Diet: Advance as tolerated Discharge Activity: Increase activity as tolerated Activity Restrictions/Additional Instructions: Please come back if you have any worsening abdominal pain, fever or chills, nausea or vomiting, diarrhea, blood in the stool, inability hold down liquid or solids, or any new concerning complaints. 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
--- NOTE | 2022-01-05 12:39 | CT_ITS ---
WS: [id number] CTA CHEST WITH CT ABDOMEN AND PELVIS. HISTORY: RIGHT upper quadrant abdominal pain, gallbladder and hernia surgery 2 days ago. TECHNIQUE: CT angiogram is performed through the chest. Additional imaging is performed through the a bdomen and pelvis with IV contrast. Sagittal and coronal reformats have been submitted. MIP imaging also reviewed. All CT scans at [facility] use at least one of these dose optimization techniqu es: automated exposure control; mA and/or kV adjustment per patient size (includes targeted exams whe re dose is matched to clinical indication); or iterative reconstruction. Contrast: Omnipaque 350; 95 cc IV. DLP: 1633.27 mGy.cm COMPARISON: 12/22/2021 Chest CTA: Good opacification of the pulmonary arteries. No filling defect. No pulmonary embolism. No rmal thoracic aorta. Normal size heart. No pneumothorax or pleural effusion. No pneumonia. Small hiat al hernia. Abdomen CT: Liver is mildly enlarged. Normal enhancement. Cholecystectomy. No fluid or abscess at the gallbladder bed. Normal spleen and pancreas. Normal adrenal glands. No renal obstruction or inflamma tion. Normal aorta. No GI tract obstruction. There are a few prominent lymph nodes in the RIGHT lower quadrant. The appendix is normal. Postsurgical changes along the anterior abdominal wall. Tiny focus of air at the surgical incision si te. There is mild inflammation but no abscess. Pelvic CT: No free fluid. No adenopathy. Normal appearance of the uterus and ovaries. Well-distended bladder. CT/CT angio chest w abd pel w con IMPRESSION: 1. No pulmonary embolism or pneumonia. 2. Status post cholecystectomy. No biloma or abscess at the gallbladder bed. 3. Recent postsurgical inflammatory changes along the anterior abdominal wall near the umbilicus. At this time there is no abscess. There is a tiny focus of air which is probably all related to normal postoperative change. 4. Small mesenteric lymph nodes in the RIGHT lower quadrant. Probably due to m esenteric adenitis.
--- NOTE | 2022-01-05 12:40 | PC.NURSE ---
Patient reports urination is minimal but she is able to urinate about 2-3 times a day. Notified patient that we need urine sample when she is able to.
[2022-01-05 12:50] LABS: Basophils # 0.1 10^3/uL (0.0-0.1); Basophils % 0.5 %; Eosinophils # 0.2 10^3/uL (0.0-0.8); Eosinophils % 1.7 %; Lymphocytes # 3.5 10^3/uL (0.8-4.8); Lymphocytes % 36.4 %; Mean Corpuscular HGB Conc 34.3 g/dL (30.0-36.0); Mean Corpuscular Volume 84.5 fl (81-99); Mean Platelet Volume 11.2 fL (7.4-10.4); Monocytes # 0.6 10^3/uL (0.2-0.9); Monocytes % 5.9 %; Neutrophils # 5.34 10^3/uL (1.8-7.7); Neutrophils % 55.2 %; Nucleated Red Blood Cells % 0 %; Platelet Count 254 10^3/cmm (130-400); Red Blood Count 4.14 10^6/uL (4.1-5.3); Red Cell Distribution Width 13.3 % (12.1-15.1); White Blood Count 9.7 10^3/uL (4.0-10.0)
[2022-01-05] MEDS: ondansetron 2 mg/ML SDV 2 mL 4 MG IVP ×2 (12:54→14:21)
[2022-01-05] MEDS: morphine 4 mg/mL SDV 1 mL IVP (12:58)
[2022-01-05] MEDS: sodium chloride 0.9% 1,000 ML 999 ML IV ×3 (12:58→17:27)
[2022-01-05] MEDS: pantoprazole 40 mg SDV 80 MG IVP (12:58)
[2022-01-05 13:01] LABS: HCG, Serum Qual Negative (Negative)
[2022-01-05 13:09] LABS: Lactate (Lactic Acid level) 1.4 mmol/L (0.5-2.2)
[2022-01-05] MEDS: lidocaine 5% Patch 1 PATCH TOPICAL (13:10)
[2022-01-05] MEDS: iohexol 350 mg/mL 100 mL Btl IV (13:41)
[2022-01-05] MEDS: HYDROmorphone 1 mg/mL INJ 1 mL 0.5 MG IVP (13:56)
[2022-01-05 13:57] LABS: Add Urine Microscopic? NO; Charge for UA Resulting for Rev
[2022-01-05 14:09] LABS: Bilirubin Urine Neg (Negative); Blood Urine Neg (Negative); Glucose Urine UA Norm (Normal); Ketones Urine Negative (Negative); Leukocyte Esterase Urine Negative (Negative); Nitrate Urine Negative (Negative); Protein Urine Neg (Negative); Specific Gravity, Urine 1.005 (1.005-1.030); Urine Appearance Clear (CLEAR); Urine Color Yellow (Yellow); Urobilinogen Urine Norm (Negative); pH Urine 7 (5-7)
[2022-01-05 14:25] LABS: Alanine Aminotransferase 16 U/L (0-33); Albumin Level 3.7 g/dL (3.5-5.2); Alkaline Phosphatase 70 IU/L (35-105); Anion Gap 13.6 (5-19); Aspartate Amino Transferase 14 U/L (0-32); Blood Urea Nitrogen 7 mg/dL (6-20); Calcium 8.7 mg/dL (8.5-10.5); Carbon Dioxide 22 mmol/L (22-29); Chloride 105 mmol/L (98-107); Globulin 3.1 g/dL (1.3-4.6); Glomerular Filtration Rate 114.4 mL/min (90-130); Glucose 69 mg/dL (65-115); Lipase 31 U/L (13-60); Osmolality Calculated 280 mOsm/kg (285-295); Potassium 3.6 mmol/L (3.5-5.1); Sodium 137 mmol/L (136-145); Total Bilirubin 0.3 mg/dL (0.15-1.2); Total Protein 6.8 g/dL (6.6-8.7)
[2022-01-05] MEDS: metoclopramide 5 mg/mL SDV 2 mL IVP (14:33)
[2022-01-05] MEDS: HYDROmorphone 1 mg/mL INJ 1 mL IVP (14:41)
--- NOTE | 2022-01-05 14:42 | PC.NURSE ---
Patient ambulated to the bathroom.
--- NOTE | 2022-01-05 16:45 | PC.NURSE ---
Patient in bed, vitals stable, no distress noted, states pain in more controlled, lights turned off for comfort, denies any needs at this time.
[2022-01-05] MEDS: potassium chloride oral liq 20 mEq/15 mL UDC 40 MEQ PO (17:28)
[2022-01-05] MEDS: ketorolac 30 mg/mL INJ IVP (17:43)
[2022-01-05] MEDS: acetaminophen 500 mg Tablet 1000 MG PO (17:43)
== END 2022-01-05 18:18 | disposition home or self-care (01) ==
PROVIDERS: Emergency Provider Emergency Medicine; PCP Internal Medicine
DX: R10.9 Unspecified abdominal pain (principal); R11.2 Nausea with vomiting, unspecified; Z90.49 Acquired absence of other specified parts of digestive tract; Z98.890 Other specified postprocedural states
CPT/HCPCS: 71275; 74177; 80053; 81003; 83605; 83690; 84703; 85025; 96361; 96374; 96375; 96376; 99284; C9113; J1170; J1885; J2270; J2405; J2765; J7030; Q9967

== ENCOUNTER 2022-02-15 14:22 | Outpatient (CLI) | payer OTHER, SELFPAY ==
--- NOTE | 2022-02-15 14:30 | MR_ITS ---
WS: [id number] MRI HEAD WITHOUT AND WITH GADOLINIUM ENHANCEMENT WITH ATTENTION TO THE PITUITARY. TECHNIQUE: Sagittal T1, T2 axial, T2 axial FLAIR, axial susceptibility weighted imaging, axial diffus ion weighted images, and coronal T2 images were obtained. Pre and post-T1 axial and post T1 coronal i mages. ADC and FSPGR images. High-resolution coronal T2 T1 postgadolinium imaging of the pituitary wa s obtained. CLINICAL INFORMATION: Pituitary adenoma COMPARISON: None. FINDINGS: Normal optic chiasm and pituitary infundibulum. Suggestion of a small RIGHT pituitary micro adenoma in the RIGHT posterior pituitary adjacent to the cavernous sinus. This measures approximately 3.6 x 3.4 mm. Recommend correlation with pituitary function studies. Otherwise normal pituitary enha ncement. No evidence of restricted diffusion to suggest acute ischemia. Ventricular system and basal cisterns are patent. 2 or 3 tiny foci of T2 hyperintensity in the frontal subcortical white matter of doubtful clinical significance but can be seen with migraine headaches. Single tiny focus of T2 hyperintensit y in the RIGHT cerebellum. No other suspicious intracranial signal abnormalities. Normal vascular flow voids at the skull base. No extra-axial fluid collections. No evidence of mass o r mass effect. Paranasal sinuses and mastoid air cells are well aerated. No abnormal intracranial enhancement. Normal visualized dural venous sinuses Normal posterior nasopha rynx. MR/MR pituitary wo/w con* [id number] IMPRESSION: 1. Suspected small pituitary microadenoma in the RIGHT aspect of the sella fany suring 3.4 x 3.6 mm posteriorly abutting the cavernous sinus. Recommend correla tion with pituitary function studies. Recommend dynamic pituitary microadenoma protocol be performed on follow-up imaging studies. 2. Sella otherwise normal in appearance. Normal optic chiasm and pituitary inf undibulum. 3. No hemosiderin on the susceptibly weighted images. 4. No other suspicious findings. RECOMMEND DYNAMIC GADOLINIUM-ENHANCED PITUITARY MICROADENOMA PROTOCOL BE PERFOR MED ON FOLLOW-UP IMAGING STUDIES.
== END 2022-02-15 14:23 | disposition home or self-care (01) ==
LOC: RAD 14:24
PROVIDERS: PCP Internal Medicine; Visit Provider Internal Medicine
DX: D35.2 Benign neoplasm of pituitary gland (principal); E03.8 Other specified hypothyroidism; E06.3 Autoimmune thyroiditis
CPT/HCPCS: 70553

== ENCOUNTER → 2022-05-15 16:15 | Outpatient (BNVA) | payer OTHER, SELFPAY | PROVIDERS: PCP Internal Medicine; Visit Provider Internal Medicine | DX: B34.9 Viral infection, unspecified (principal) | CPT/HCPCS: 87486; 87581; 87633 ==

== ENCOUNTER 2022-05-29 11:15 | Outpatient (CLI) | payer OTHER, SELFPAY ==
--- NOTE | 2022-05-29 11:24 | XR_ITS ---
WS: [id number] Chest 2 views, 05/29/2022 Clinical Data: rule out pneumonia Comparison: None. Findings: No nodules, masses or effusions are seen. The heart is normal. The pulmonary vascularity is not increased. No pneumonia or pneumothorax is seen. XR/XR chest 2V* [id number] Impression: Negative chest.
== END 2022-05-29 11:16 | disposition home or self-care (01) ==
PROVIDERS: PCP Internal Medicine; Visit Provider Internal Medicine Pulmonary Disease
DX: R06.2 Wheezing (principal)
CPT/HCPCS: 71046

== ENCOUNTER 2022-06-09 05:47 | Emergency (ER) | payer OTHER, SELFPAY ==
[2022-06-09 05:50] VITALS: BP 125/85; PULSE 103; RESP 18; TEMP 36.4; O2SAT 99; BMI 35.8
--- NOTE | 2022-06-09 06:00 | ED_ITS ---
HPI - Female Genitourinary General: Chief complaint: Urogenital-Female Stated complaint: UtI Time Seen by Provider: 06/09/22 05:59 Source: patient Mode of arrival: ambulatory History of Present Illness: 36-year-old female presents emergency room with complaint of abdominal pain. She has had UTI symptoms for the last several days with some lower back pain dysuria urgency and frequency and has begun to develop some hematuria. She had tried to treat at home by increasing fluid intake. She does not have any real flank pain most of her pain is suprapubic. No history of nephrolithiasis. No fever. Several years ago she did have a urinary tract infection that grew out ESBL. MD elicited complaint: UTI Onset (ago): day(s) Location of symptoms: suprapubic Severity: moderate Female Urogenital Radiation: Suprapubic Quality of pain: cramping Consistency: constant Urinary symptoms: Dysuria, Frequency, Hematuria and Urgency Exacerbating factors: urination Relieving factors: none Associated symptoms: Reports abdominal pain and nausea; Deny short of breath, fevers/chills, headache(s), rash or weakness Treatment prior to arrival: none Patient : No Review of Systems Const: Reports: body aches, fatigue and malaise; Denies: fever(s), chills or change in appetite ENMT: Denies: throat pain, ear or mastoid pain, nasal discharge or nasal congestion Card: Denies: chest pain, palpitations, edema, dyspnea on exertion or orth opnea Resp: Denies: dyspnea, productive cough or non-productive cough GI: Reports: abdominal pain and nausea : Reports: flank pain, difficulty voiding, dysuria, urinary frequency and urinary urgency Musc: Reports: back pain Skin/Breast: Denies: rash or pruritus Neuro: Denies: headache(s) PFSH ED PFSH: Medical History Anemia Reports being chronically anemic--states work-up has been done which only showed iron deficiency-have requested these records Cyst, ovary, dermoid Reports being diagnosed with a dermoid cyst either 4 mm or 4 cm in one of her ovaries in 2014. She states that she had serial ultrasounds that showed no growth and at the time of her in 2017 she was told that it resolved and she never had any surgical intervention. Hypothyroidism Diagnosed in 2017 and has been on medication. Reports that she is not very compliant with taking the medication. Pituitary microadenoma Reports being diagnosed with a pituitary microadenoma in 2013 when she was undergoing evaluation for elevated prolactin. She had follow-up MRIs and was told everything was stable. She has not have this reevaluated since 2014. Recommend follow-up with endocrinology . She is asymptomatic Surgical History H/O esophagogastroduodenoscopy History of bunionectomy 2007 - Left foot History of delivery x2 04/17/2021-done by Dr. Wayne Hunter in [facility]. ----->Operative reports have been requested and received and scanned. Low transverse delivery for failure to progress-single layer closure with no extensions documented. 08/16/2021--schedule repeat delivery at 37 weeks for poorly controlled gestational diabetes. Performed by Dr. Teague at [facility]. History of tonsillectomy and adenoidectomy 2004 Status post laparoscopic cholecystectomy (01/03/22) Family History Grandfather Cancer maternal, Lymphoma Diabetes maternal Hypertension Mother Diabetes Hypertension Grandmother Diabetes maternal Hypertension maternal Family/Other Thyroid disease maternal uncle Heart disease paternal aunt, paternal uncle Brother Diabetes Denies family history of Colon cancer Ovarian cancer Hypercholesteremia Breast cancer Uterine cancer Stroke Social History Smoking and tobacco status: never smoked Physical Exam Const: GENERAL APPEARANCE: cooperative and comfortable ORIENTATION/CONSCIOUSNESS: Yes awake, Yes oriented to person, Yes oriented to place and Yes oriented to time HENMT: COMMON NORMALS: normocephalic, atraumatic and hearing grossly normal bilaterally HEAD & SCALP: normocephalic and atraumatic Resp: COMMON NORMALS: normal respiratory effort, No retractions, No use of accessory muscles and clear to auscultation bilaterally AUSCULTATION: clear to auscultation bilaterally Cardio: COMMON NORMALS: regular rate, regular rhythm and No murmurs present (Cardio) RATE: regular rate RHYTHM: regular rhythm GI: COMMON NORMALS: Soft to palpation and No hepatosplenomegaly present AUSCULTATION: Yes normoactive bowel sounds PALPATION: Yes Soft to palpation, No Tenderness to palpation present (GI), No Guarding due to palpation present (GI) and Yes No hepatosplenomegaly present Extremity: COMMON NORMALS: normal to inspection, capillary refill normal, no clubbing, cyanosis or edema, no calf tenderness and no pedal edema Neuro: SENSORIUM/ORIENTATION: Yes oriented to person, Yes oriented to place and Yes oriented to time Skin: COMMON NORMALS: no rashes or lesions noted GENERAL SKIN EXAM: no rashes or lesions noted Course Vital Signs: Vital signs: Vital Signs Temperature 97.5 F L 06/09/22 05:50 Pulse Rate 91 06/09/22 10:00 Respiratory Rate 16 06/09/22 08:14 Blood Pressure 116/90 06/09/22 08:22 Pulse Oximetry 99 06/09/22 10:00 Oxygen Delivery Me thod 06/09/22 05:50 MDM - Female Medical Decision Making Patient has cystitis mildly elevated white count severe pain. She given pain medications in ER and started on Pyridium given first dose of Cipro she was recently on a course of Augmentin so we sent her home on Cipro twice daily for 1 week. If symptoms do not improve recheck we did get cultures on her prior to discharge. Medical Records I reviewed the patient's medical records. Lab Data I reviewed the patient's lab results. 06/09/22 06:27 06/09/22 06:27 Radiology Impressions Abdomen/Pelvis CT 06/09/22 06:39 IMPRESSION: 1. Right renal calyceal lithiasis. 2. Right renal benign cyst. No follow-up imaging is recommended. 3. Paraumbilical hernia. 4. Mild abdominal colonic constipation. 5. Prior cholecystectomy. COMMENTS: Consistent with the [employer]'s Incidental Findings Committee white paper (J Am Mitch Radiol 2018): Any incidental renal lesion less than 1 cm or classified as too small to characterize, or any incidental cystic renal lesion characterized as simple-appearing, is likely benign. No follow-up imaging is recommended for these lesions per consensus recommendations based on imaging criteria. Laboratory Results WBC 11.9 10^3/uL (4.0-10.0) H 06/09/22 06:27 RBC 4.27 10^6/uL (4.1-5.3) 06/09/22 06:27 Hgb 12.4 g/dL (11.5-15.3) 06/09/22 06:27 Hct 38.7 % (37.0-47.0) 06/09/22 06:27 MCV 90.6 fl (81-99) 06/09/22 06:27 MCH 29.0 pg (28.0-34.0) 06/09/22 06: MCHC 32.0 g/dL (30.0-36.0) 06/09/22 06: RDW 14.2 % (12.1-15.1) 06/09/22 06:27 Plt Count 259 10^3/cmm (130-400) 06/09/22 06:27 MPV 11.3 fL (7.4-10.4) H 06/09/22 06:27 Neut % (Auto) 68.1 % 06/09/22 06:27 Lymph % (Auto) 22.1 % 06/09/22 06: [place] % (Auto) 7.1 % 06/09/22 06:27 Eos % (Auto) 1.7 % 06/09/22 06:27 Baso % (Auto) 0.5 % 06/09/22 06:27 Neut # (Auto) 8.13 10^3/uL (1.8-7.7) H 06/09/22 06:27 Lymph # (Auto) 2.6 10^3/uL (0.8-4.8) 06/09/22 06:27 [place] # (Auto) 0.9 10^3/uL (0.2-0.9) 06/09/22 06:27 Eos # (Auto) 0.2 10^3/uL (0.0-0.8) 06/09/22 06:27 Baso # (Auto) 0.1 10^3/uL (0.0-0.1) 06/09/22 06:27 Nucleated RBC % (auto) 0 % 06/09/22 06:27 Nucleated RBCs # 0.0 /100WBC 06/09/22 06:27 Sodium 136 mmol/L (136-145) 06/09/22 06:27 Potassium 4.2 mmol/L (3.5-5.1) 06/09/22 06:27 Chloride 101 mmol/L (98-107) 06/09/22 06:27 Carbon Dioxide 24 mmol/L (22-29) 06/09/22 06:27 Anion Gap 15.2 (5-19) 06/09/22 06:27 BUN 11 mg/dL (6-20) 06/09/22 06:27 Creatinine 0.7 mg/dL (0.5-0.9) 06/09/22 06:27 GFR Calculation 95.8 mL/min (90-130) 06/09/22 06:27 Glucose 92 mg/dL (65-115) 06/09/22 06:27 Calculated Osmolality 281 mOsm/kg (285-295) L 06/09/22 06:27 Calcium 10.4 mg/dL (8.5-10.5) 06/09/22 06:27 Creatine Kinase 79 U/L (26-192) 06/09/22 06:27 HCG, Qual Negative (Negative) 06/09/22 06:27 Urine Color Red (Yellow) 06/09/22 05:51 Urine Appearance Cloudy (CLEAR) A 06/09/22 05:51 Urine pH 6 (5-7) 06/09/22 05:51 Ur Specific [place] 1.015 (1.005-1.030) 06/09/22 05:51 Urine Protein 2+ (Negative) H 06/09/22 05:51 Urine Glucose (UA) Norm (Normal) 06/09/22 05:51 Urine Ketones Negative (Negative) 06/09/22 05:51 Urine Blood 3+ (Negative) H 06/09/22 05:51 Urine Nitrate Negative (Negative) 06/09/22 05:51 Urine Bilirubin Neg (Negative) 06/09/22 05:51 Urine Urobilinogen Norm mg/dL (Negative) 06/09/22 05:51 Ur Leukocyte Esterase 1+ (Negative) H 06/09/22 05:51 Urine RBC Too numerous to cnt /hpf (0-2) H 06/09/22 05:51 Urine WBC 25-40 /hpf (0-5) H 06/09/22 05:51 Ur Squamous Epith Cells 0-4 /hpf (0-5) H 06/09/22 05:51 Amorphous Sediment Not Reportable 06/09/22 05:51 Urine Bacteria Trace /hpf (NONE) 06/09/22 05:51 Discharge Plan Discharge Patient Disposition: Home Clinical Impression: Cystitis, acute hemorrhagic Condition: Stable Prescriptions: New ondansetron HCl 4 mg tablet 4 mg PO Q6H PRN (Reason: nausea and vomiting) Qty: 20 0RF Cipro 500 mg tablet 500 mg PO BID Qty: 14 0RF Percocet 5-325 mg tablet 1 tab PO Q6H PRN (Reason: pain) Qty: 14 0RF Pyridium 200 mg tablet 200 mg PO TID Qty: 6 0RF Discontinued prednisone 20 mg tablet 20 mg PO DAILY Qty: 7 0RF codeine-guaifenesin 10-100 mg/5 mL liquid 5 ml PO Q6H PRN (Reason: allergy symptoms) Qty: 118 0RF amoxicillin-pot clavulanate 875-125 mg tablet 1 tab PO BID Qty: 14 0RF No Action Ozempic 0.25 mg or 0.5 mg(2 mg/1.5 mL) pen injector 0.25 mg SUBCUT .weekly Qty: 1.5 0RF Ozempic 0.25 mg or 0.5 mg(2 mg/1.5 mL) pen injector 0.5 mg SUBCUT .weekly Qty: 1.5 2RF levothyroxine 25 mcg tablet 25 mcg PO DAILY Qty: 90 3RF Discharge Orders: Discharge ED (Routine); Ordered 06/09/22 Ordered By: Wang Navarro Discharge Diet: Usual diet Discharge Activity: Increase activity as tolerated Patient Instructions: Opioid Safety, Pain Management Activity Restrictions/Additional Instructions: You are seen in the emergency room today for bladder symptoms. Laboratory testing shows you have an acute hemorrhagic cystitis. Incidental finding of a right renal stone but that is not likely contributing to your symptoms at this time. Since you recently were on a course of Augmentin you were started on ciprofloxacin the first dose was given IV this morning take the first oral tablet this evening. Use ondansetron and oxycodone for pain and nausea symptoms. Use Pyridium for bladder spasm. Coding Level of Care Code ED [employer] Automatic for Antonia Frye
[2022-06-09 06:23] LABS: Urine Appearance Cloudy (CLEAR); Urine Color Red (Yellow)
[2022-06-09 06:24] LABS: Add Urine Microscopic? YES; Bilirubin Urine Neg (Negative); Blood Urine 3+ (Negative); Glucose Urine UA Norm (Normal); Ketones Urine Negative (Negative); Leukocyte Esterase Urine 1+ (Negative); Nitrate Urine Negative (Negative); Protein Urine 2+ (Negative); Specific Gravity, Urine 1.015 (1.005-1.030); Urobilinogen Urine Norm (Negative); pH Urine 6 (5-7)
[2022-06-09 06:25] LABS: RBC Urine TOO NUMEROUS TO CNT /hpf (0-2)
[2022-06-09 06:26] LABS: Bacteria Urine TRACE /hpf; Squamous Epithelial Cell Urine 0-4 /hpf (0-5); WBC Urine 25-40 /hpf (0-5)
[2022-06-09 06:27] LABS: Add Urine Culture? Yes
[2022-06-09] MEDS: sodium chloride 0.9% 1,000 ML 999 ML IV (06:33)
[2022-06-09] MEDS: ondansetron 2 mg/ML SDV 2 mL 4 MG IVP (06:33)
[2022-06-09] MEDS: phenazopyridine 100 mg Tablet 200 MG PO (06:33)
[2022-06-09] MEDS: morphine 4 mg/mL SDV 1 mL IVP ×2 (06:33→08:14)
[2022-06-09] MEDS: ketorolac 30 mg/mL INJ IVP (06:33)
--- NOTE | 2022-06-09 06:39 | CTR_ITS ---
PROCEDURE INFORMATION: Exam: CT Abdomen And Pelvis Without Contrast Exam date and time: 06/09/2022 7:15 AM Age: 36 years old Clinical indication: Other: Gross hematuria; Abdominal pain; Localized; Lower; Prior surgery; Surgery date: 6+ months; Surgery type: 07/2021, cholecystectomy 12/2021; Additional info: Flank pain/hematuria TECHNIQUE: Imaging protocol: Computed tomography of the abdomen and pelvis without contrast. Radiation optimization: All CT scans at this facility use at least one of these dose optimization techniques: automated exposure control; mA and/or kV adjustment per patient size (includes targeted exams where dose is matched to clinical indication); or iterative reconstruction. COMPARISON: CT abdomen pelvis w con* [id number] 12/22/2021 5:24 PM RADIATION DOSE METRICS: Total DLP (mGy-cm): 740.85 FINDINGS: Liver: Normal. No mass. Gallbladder and bile ducts: The gallbladder is surgically absent, with metallic clips in the gallbladder fossa. No extrahepatic biliary ductal dilatation or calculus. Pancreas: Normal. No ductal dilation. Spleen: A small anterior splenule is present. Adrenal glands: Normal. No mass. Kidneys and ureters: Right mid renal lateral 2.2 mm calyceal calculus. Right renal 18.2 mm benign cyst, at the medial hilum. Stomach and bowel: There is mildly increased stool noted in the ascending and proximal transverse colon. No evidence of bowel obstruction. Appendix: The vermiform appendix is normal. Intraperitoneal space: No pneumoperitoneum. No ascites. Vasculature: Unremarkable. No abdominal aortic aneurysm. Lymph nodes: No enlarged lymph nodes. Urinary bladder: Unremarkable as visualized. Reproductive: Unremarkable as visualized. Bones/joints: Unremarkable. No acute fracture. Soft tissues: A 2.6 cm paraumbilical hernia containing only abdominal fat is noted. CT/CT kidney stone [id number] IMPRESSION: 1. Right renal calyceal lithiasis. 2. Right renal benign cyst. No follow-up imaging is recommended. 3. Paraumbilical hernia. 4. Mild abdominal colonic constipation. 5. Prior cholecystectomy. COMMENTS: Consistent with the [employer] [place] [employer]'s Incidental Findings Committee white paper (J Am Mitch Radiol 2018): Any incidental renal lesion less than 1 cm or classified as too small to characterize, or any incidental cystic renal lesion characterized as simple-appearing, is likely benign. No follow-up imaging is recommended for these lesions per consensus recommendations based on imaging criteria.
[2022-06-09 06:55] LABS: Basophils # 0.1 10^3/uL (0.0-0.1); Basophils % 0.5 %; Eosinophils # 0.2 10^3/uL (0.0-0.8); Eosinophils % 1.7 %; Hematocrit 38.7 % (37.0-47.0); Hemoglobin 12.4 g/dL (11.5-15.3); Lymphocytes # 2.6 10^3/uL (0.8-4.8); Lymphocytes % 22.1 %; Mean Corpuscular Volume 90.6 fl (81-99); Mean Platelet Volume 11.3 fL (7.4-10.4); Monocytes # 0.9 10^3/uL (0.2-0.9); Monocytes % 7.1 %; Neutrophils # 8.13 10^3/uL (1.8-7.7); Neutrophils % 68.1 %; Nucleated Red Blood Cells % 0 %; Platelet Count 259 10^3/cmm (130-400); Red Blood Count 4.27 10^6/uL (4.1-5.3); Red Cell Distribution Width 14.2 % (12.1-15.1); White Blood Count 11.9 10^3/uL (4.0-10.0)
[2022-06-09 07:06] LABS: HCG, Serum Qual Negative (Negative)
[2022-06-09 07:09] LABS: Anion Gap 15.2 (5-19); Blood Urea Nitrogen 11 mg/dL (6-20); Calcium 10.4 mg/dL (8.5-10.5); Carbon Dioxide 24 mmol/L (22-29); Chloride 101 mmol/L (98-107); Glomerular Filtration Rate 95.8 mL/min (90-130); Glucose 92 mg/dL (65-115); Osmolality Calculated 281 mOsm/kg (285-295); Potassium 4.2 mmol/L (3.5-5.1); Sodium 136 mmol/L (136-145)
[2022-06-09 07:27] LABS: Creatine Phosphokinase 79 U/L (26-192)
[2022-06-09 08:14] VITALS: RESP 16
[2022-06-09] MEDS: ciprofloxacin 400 MG/200 ML PREMIX 200 MG IV (08:15)
[2022-06-09 08:22] VITALS: BP 116/90; PULSE 89; O2SAT 99
[2022-06-09] MEDS: diphenhydrAMINE 50 mg/mL SDV 1mL 25 MG IVP (08:29)
[2022-06-09 10:00] VITALS: PULSE 91; O2SAT 99
== END 2022-06-09 10:53 | disposition home or self-care (01) ==
PROVIDERS: Emergency Provider Family Medicine
DX: N30.01 Acute cystitis with hematuria (principal); K59.00 Constipation, unspecified
CPT/HCPCS: 74176; 80048; 81001; 82550; 84703; 85025; 87077; 87086; 87186; 96365; 96375; 96376; 99285; J0744; J1200; J1885; J2270; J2405; J7030

== ENCOUNTER 2022-06-20 10:00 | Outpatient (RCR) | payer OTHER, SELFPAY ==
[2022-06-14] MEDS: ertapenem 1,000 MG in sodium chloride 0.9% (plus) 100 ML 200 MG IV (11:29)
[2022-06-14 11:46] VITALS: BP 170/142; PULSE 90; RESP 18; TEMP 36.3; O2SAT 99
[2022-06-15] MEDS: ertapenem 1,000 MG in sodium chloride 0.9% (plus) 100 ML 200 MG IV (09:50)
[2022-06-15 10:06] VITALS: BP 108/73; PULSE 70; RESP 16; TEMP 36.5; O2SAT 97
[2022-06-16] MEDS: ertapenem 1,000 MG in sodium chloride 0.9% (plus) 100 ML 200 MG IV (07:32)
[2022-06-16 07:37] VITALS: BP 122/75; PULSE 96; RESP 18; TEMP 36.2; O2SAT 99
[2022-06-17 06:30] VITALS: BP 104/54; PULSE 96; RESP 18; TEMP 36.2; O2SAT 99
[2022-06-17] MEDS: ertapenem 1,000 MG in sodium chloride 0.9% (plus) 100 ML 200 MG IV (07:17)
[2022-06-18] MEDS: ertapenem 1,000 MG in sodium chloride 0.9% (plus) 100 ML 200 MG IV (07:50)
[2022-06-18 09:45] VITALS: BP 134/80; PULSE 80; RESP 24; TEMP 36.1
[2022-06-19 06:00] VITALS: BP 126/84; PULSE 73; RESP 16; TEMP 36.5; O2SAT 96
[2022-06-19] MEDS: ertapenem 1,000 MG in sodium chloride 0.9% (plus) 100 ML 200 MG IV (06:00)
[2022-06-19 06:45] VITALS: BP 122/78; PULSE 80; RESP 16; TEMP 36.7; O2SAT 97
[2022-06-20 10:00] VITALS: BP 109/59; PULSE 100; RESP 18; TEMP 36.5; O2SAT 99
[2022-06-20] MEDS: ertapenem 1,000 MG in sodium chloride 0.9% (plus) 100 ML 200 MG IV (10:05)
== END 2022-06-21 23:59 | disposition home or self-care (01) ==
LOC: GILAB 10:00
PROVIDERS: Visit Provider Student in an Organized Health Care Education/Training Program
DX: N30.01 Acute cystitis with hematuria (principal)
CPT/HCPCS: 96365; J1335

== ENCOUNTER → 2022-07-21 11:26 | Outpatient (BNVA) | payer OTHER, SELFPAY | PROVIDERS: PCP Family Medicine; Visit Provider Family Medicine | DX: E03.8 Other specified hypothyroidism (principal); E06.3 Autoimmune thyroiditis; Z32.01 Encounter for pregnancy test, result positive; Z76.89 Persons encountering health services in other specified circumstances | CPT/HCPCS: 80053; 81003; 84443; 84702; 84703; 85025; 87086 ==

== ENCOUNTER 2022-07-26 21:32 | Outpatient (CLI) | payer OTHER, SELFPAY ==
[2022-07-26 21:53] LABS: Urine Appearance Clear (CLEAR); Urine Color Yellow (Yellow); pH Urine 6.5 (5-7)
[2022-07-26 21:54] LABS: Bilirubin Urine Neg (Negative); Blood Urine Neg (Negative); Glucose Urine UA Trace (Normal); Ketones Urine Negative (Negative); Leukocyte Esterase Urine Negative (Negative); Nitrate Urine Negative (Negative); Protein Urine Neg (Negative); RBC Urine 0-4 /hpf (0-2); Urobilinogen Urine Norm (Negative)
[2022-07-26 21:55] LABS: Add Urine Culture? No
== END 2022-07-26 21:33 | disposition home or self-care (01) ==
LOC: LAB 21:34
PROVIDERS: PCP Family Medicine; Visit Provider Family Medicine
DX: Z32.01 Encounter for pregnancy test, result positive (principal); R82.71 Bacteriuria
CPT/HCPCS: 81001; 87086

== ENCOUNTER → 2022-08-02 10:00 | Outpatient (BNVA) | payer OTHER, SELFPAY | PROVIDERS: PCP Family Medicine; Visit Provider Nurse Practitioner Women's Health | DX: O21.9 Vomiting of pregnancy, unspecified (principal); O09.899 Supervision of other high risk pregnancies, unspecified trimester; O09.299 Supervision of pregnancy with other poor reproductive or obstetric history, unspecified trimester; Z86.32 Personal history of gestational diabetes; Z22.330 Carrier of Group B streptococcus; E66.9 Obesity, unspecified; E03.8 Other specified hypothyroidism; E06.3 Autoimmune thyroiditis; O34.219 Maternal care for unspecified type scar from previous cesarean delivery; Z3A.00 Weeks of gestation of pregnancy not specified | CPT/HCPCS: 81025; 84315 ==

== ENCOUNTER → 2022-08-03 12:51 | Outpatient (BNVA) | payer OTHER, SELFPAY | PROVIDERS: PCP Family Medicine; Visit Provider Nurse Practitioner Women's Health | DX: Z36.87 Encounter for antenatal screening for uncertain dates (principal) | CPT/HCPCS: 76817 ==

== ENCOUNTER 2022-08-13 13:32 | Outpatient (CLI) | payer OTHER, SELFPAY ==
[2022-08-13 15:26] LABS: Adenovirus Not Detected (NOT DETECT); Chlamydia Pneumoniae Not Detected (NOT DETECT); Coronavirus 229E,HKU1,NL63,OC4 Not Detected (NOT DETECT); Human Metapneumovirus Not Detected (NOT DETECT); Human Rhinovirus/Enterovirus Not Detected (NOT DETECT); Influenza A Not Detected (NOT DETECT); Influenza A H1 Not Detected (NOT DETECT); Influenza A H1-2009 Not Detected (NOT DETECT); Influenza A H3 Not Detected (NOT DETECT); Influenza B Not Detected (NOT DETECT); Mycoplasma Pneumoniae Not Detected (NOT DETECT); Parainfluenza Virus Type 1 Not Detected (NOT DETECT); Parainfluenza Virus Type 2 Not Detected (NOT DETECT); Parainfluenza Virus Type 3 Not Detected (NOT DETECT); Parainfluenza Virus Type 4 Not Detected (NOT DETECT); Respiratory Syncytial Virus A Not Detected (NOT DETECT); Respiratory Syncytial Virus B Not Detected (NOT DETECT); SARS-COV-2 Detected (NOT DETECT)
== END 2022-08-13 13:33 | disposition home or self-care (01) ==
PROVIDERS: PCP Family Medicine; Visit Provider Emergency Medicine
DX: Z20.822 Contact with and (suspected) exposure to COVID-19 (principal)
CPT/HCPCS: 87635

== ENCOUNTER → 2022-08-30 13:50 | Outpatient (BNVA) | payer OTHER, SELFPAY | PROVIDERS: PCP Family Medicine; Visit Provider Nurse Practitioner Women's Health | DX: O26.899 Other specified pregnancy related conditions, unspecified trimester (principal); R12 Heartburn; R39.11 Hesitancy of micturition; O09.899 Supervision of other high risk pregnancies, unspecified trimester; O09.299 Supervision of pregnancy with other poor reproductive or obstetric history, unspecified trimester; Z86.32 Personal history of gestational diabetes; E03.8 Other specified hypothyroidism; E06.3 Autoimmune thyroiditis | CPT/HCPCS: 84315; 87086 ==

== ENCOUNTER 2022-09-07 13:23 | Outpatient (CLI) | payer OTHER, SELFPAY ==
[2022-09-07 14:32] LABS: Basophils % 0.3 %; Eosinophils # 0.3 10^3/uL (0.0-0.8); Eosinophils % 4.7 %; Hematocrit 35.9 % (37.0-47.0); Hemoglobin 11.5 g/dL (11.5-15.3); Lymphocytes # 2.4 10^3/uL (0.8-4.8); Lymphocytes % 32.7 %; Mean Corpuscular Hemoglobin 28.3 pg (28.0-34.0); Mean Corpuscular Volume 88.2 fl (81-99); Mean Platelet Volume 10.3 fL (7.4-10.4); Monocytes # 0.4 10^3/uL (0.2-0.9); Monocytes % 4.9 %; Neutrophils # 4.11 10^3/uL (1.8-7.7); Nucleated Red Blood Cells % 0 %; Platelet Count 227 10^3/cmm (130-400); Red Blood Count 4.07 10^6/uL (4.1-5.3); Red Cell Distribution Width 14.3 % (12.1-15.1); White Blood Count 7.2 10^3/uL (4.0-10.0)
[2022-09-07 14:50] LABS: Estmated Average Glucose 103; Hemoglobin A1C 5.2 % (4.0-6.0)
[2022-09-07 15:03] LABS: Amphetamines Screen Urine Negative (Negative); Barbiturates Screen Urine Negative (Negative); Benzodiazepines Screen Urine Negative (Negative); Cocaine Screen Urine Negative (Negative); Opiate Screen Urine Negative (Negative); PCP Screen Urine Negative (Negative); THC Screen Urine Negative (Negative)
[2022-09-07 15:11] LABS: Rubella IgG 269.1 IU/mL (0.0-10.0); Thyroid Stimulating Hormone 2.13 uIU/mL (0.27-4.20)
[2022-09-07 15:13] LABS: Hepatitis B Surface Antigen Non-Reactive (Nonreactive); Hepatitis C Virus Antibody Non-Reactive (Nonreactive)
[2022-09-07 15:16] LABS: Rapid Plasma Reagin Syphilis Nonreactive (Nonreactive)
[2022-09-07 15:24] LABS: HIV 1 & 2 Antibody Non-Reactive (Non-Reactiv); HIV 1 & 2 Antigen Non-Reactive (Non-Reactiv)
== END 2022-09-07 13:24 | disposition home or self-care (01) ==
PROVIDERS: PCP Family Medicine; Referring Provider Nurse Practitioner Women's Health; Visit Provider Obstetrics & Gynecology
DX: O09.899 Supervision of other high risk pregnancies, unspecified trimester (principal); O09.299 Supervision of pregnancy with other poor reproductive or obstetric history, unspecified trimester; Z86.32 Personal history of gestational diabetes; E03.8 Other specified hypothyroidism; E06.3 Autoimmune thyroiditis
CPT/HCPCS: 36415; 80306; 83036; 84443; 85025; 86592; 86762; 86803; 86850; 86900; 87340; 87806

== ENCOUNTER → 2022-09-11 07:31 | Outpatient (BNVA) | payer OTHER, SELFPAY | PROVIDERS: PCP Family Medicine; Visit Provider Obstetrics & Gynecology | DX: O09.899 Supervision of other high risk pregnancies, unspecified trimester (principal) | CPT/HCPCS: 84315; 87491; 87591; 87661 ==

== ENCOUNTER → 2022-10-02 15:13 | Outpatient (BNVA) | payer OTHER, SELFPAY | PROVIDERS: PCP Family Medicine; Visit Provider Obstetrics & Gynecology | DX: O09.899 Supervision of other high risk pregnancies, unspecified trimester (principal); Z3A.00 Weeks of gestation of pregnancy not specified | CPT/HCPCS: 84315; 87086 ==

== ENCOUNTER 2022-10-03 10:43 | Outpatient (CLI) | payer OTHER, SELFPAY ==
[2022-10-03 12:23] LABS: Glucose Challenge 50gm Dose 208 mg/dL (85-140)
== END 2022-10-03 10:44 | disposition home or self-care (01) ==
PROVIDERS: Nurse Practitioner Women's Health; PCP Family Medicine; Visit Provider Obstetrics & Gynecology
DX: O09.299 Supervision of pregnancy with other poor reproductive or obstetric history, unspecified trimester (principal); Z86.32 Personal history of gestational diabetes
CPT/HCPCS: 36415; 82950

== ENCOUNTER 2022-10-03 10:54 | Outpatient (CLI) | payer SELFPAY ==
[2022-10-03 11:55] LABS: HF Add Manual Diff No
[2022-10-03 12:03] LABS: Basophils % 0.4 %; Eosinophils # 0.2 10^3/uL (0.0-0.8); Eosinophils % 2.3 %; Hematocrit 34.9 % (37.0-47.0); Lymphocytes # 2.3 10^3/uL (0.8-4.8); Lymphocytes % 29.2 %; Mean Corpuscular HGB Conc 31.5 g/dL (30.0-36.0); Mean Corpuscular Hemoglobin 28.4 pg (28.0-34.0); Mean Corpuscular Volume 89.9 fl (81-99); Mean Platelet Volume 10.8 fL (7.4-10.4); Monocytes # 0.2 10^3/uL (0.2-0.9); Monocytes % 2.8 %; Neutrophils % 64.8 %; Nucleated Red Blood Cells % 0 %; Platelet Count 211 10^3/cmm (130-400); Red Blood Count 3.88 10^6/uL (4.1-5.3); Red Cell Distribution Width 14.3 % (12.1-15.1); White Blood Count 7.7 10^3/uL (4.0-10.0)
[2022-10-03 12:25] LABS: Estmated Average Glucose 103; Hemoglobin A1C 5.2 % (4.0-6.0)
[2022-10-03 12:26] LABS: Albumin Level 3.7 g/dL (3.5-5.2); Alkaline Phosphatase 61 U/L (35-105); Anion Gap 13.6 (5-19); Aspartate Amino Transferase 30 U/L (0-32); Blood Urea Nitrogen 6 mg/dL (6-20); Carbon Dioxide 22 mmol/L (22-29); Chloride 99 mmol/L (98-107); Chol HDL Ratio 3.69 mg/dL (0.0-4.40); Cholesterol 188 mg/dL (0-200); Globulin 3.1 g/dL (1.3-4.6); Glomerular Filtration Rate 181.6 mL/min (90-130); Glucose 190 mg/dL (65-115); HDL Cholesterol 51 mg/dL (60-100); LDL Cholesterol Calculated 114 mg/dL (50-129); LDL HDL Ratio 2.24 RATIO (0.00-3.22); Osmolality Calculated 275 mOsm/kg (285-295); Potassium 3.6 mmol/L (3.5-5.1); Sodium 131 mmol/L (136-145); Total Bilirubin 0.2 mg/dL (0.15-1.2); Total Protein 6.8 g/dL (6.6-8.7); Triglycerides 117 mg/dL (0-150)
[2022-10-03 12:36] LABS: Alanine Aminotransferase 14 U/L (0-33)
[2022-10-03 12:41] LABS: 25 Hydroxy Vitamin D 12 ng/mL (30-100)
== END 2022-10-03 10:55 | disposition home or self-care (01) ==
PROVIDERS: PCP Family Medicine; Visit Provider Dermatology
DX: Z01.89 Encounter for other specified special examinations (principal)

== ENCOUNTER 2022-10-04 08:37 | Outpatient (CLI) | payer OTHER, SELFPAY ==
[2022-10-04 09:24] LABS: Glucose Fasting Gestational 99 mg/dL (65-115)
[2022-10-04 11:16] LABS: Glucose 1 Hour 208 mg/dL
[2022-10-04 12:08] LABS: Glucose 2 Hour 140 mg/dL
[2022-10-04 13:26] LABS: Glucose 3 Hour 93 mg/dL
== END 2022-10-04 08:38 | disposition home or self-care (01) ==
PROVIDERS: PCP Family Medicine; Visit Provider Obstetrics & Gynecology
DX: O09.299 Supervision of pregnancy with other poor reproductive or obstetric history, unspecified trimester (principal); Z86.32 Personal history of gestational diabetes
CPT/HCPCS: 36415; 82951; 82952

== ENCOUNTER → 2022-10-31 14:37 | Outpatient (BNVA) | payer OTHER, SELFPAY | PROVIDERS: PCP Family Medicine; Visit Provider Obstetrics & Gynecology | DX: Z36.9 Encounter for antenatal screening, unspecified (principal) | CPT/HCPCS: 76805 ==

== ENCOUNTER 2022-11-15 23:39 | Outpatient (CLI) | payer OTHER, SELFPAY ==
[2022-11-15 23:40] VITALS: BMI 37.5
--- NOTE | 2022-11-15 23:40 | PC.NURSE ---
Patient reports bleeding yesterday when she went to the bathroom, no bleeding today.
[2022-11-15 23:43] VITALS: RESP 17
--- NOTE | 2022-11-15 23:43 | USR_ITS ---
PROCEDURE INFORMATION: Exam: US , Limited Exam date and time: 11/15/2022 11:55 PM Age: 37 years old Clinical indication: Lmp or gestational age (in weeks): 21w 0 d; Antepartum complications; Bleeding; ; Prior surgery; Surgery date: 6+ months; Surgery type: Csection; Patient HX: Spotting yesterday, now resolved; Additional info: Vaginal bleeding at 21 weeks gestation LABS AND CLINICAL REPORTS: Last menstrual period start date: 06/21/2022 Gestational age (Established): 21 w 0 d Estimated due date (Established): 03/28/2023 TECHNIQUE: Imaging protocol: Real-time ultrasound of the maternal uterus with image documentation. Exam focused on the clinical indication. COMPARISON: US OB >= 14 weeks fetus [id number] 10/31/2022 2:39 PM FINDINGS: Gestation: Single intrauterine . heart rate: 147 bpm presentation: Transverse Placenta: Placenta is anterior. Small suspected retroperitoneal hemorrhage measuring 5.9 x 1.9 cm adjacent to a suspected area of placental abruption along the inferior placental margin measuring 0.9 x 1.8 cm. Amniotic fluid: Amniotic fluid volume is normal. Amniotic fluid index: LUCAS is 19.6 cm. MATERNAL: Cervix: Cervical length measures 3.3 cm. US/US OB >= 14 weeks fetus [id number] IMPRESSION: 1. Single live intrauterine . 2. Small suspected retroperitoneal hemorrhage measuring 5.9 x 1.9 cm adjacent to a suspected area of placental abruption along the inferior placental margin measuring 0.9 x 1.8 cm.
[2022-11-15 23:49] VITALS: TEMP 36
[2022-11-15 23:50] VITALS: BP 102/59; PULSE 90
[2022-11-16 00:18] LABS: Bacteria Urine TRACE /hpf; Bilirubin Urine Neg (Negative); Blood Urine Neg (Negative); Glucose Urine UA 1+ (Normal); Ketones Urine Negative (Negative); Leukocyte Esterase Urine Negative (Negative); Mucus Urine 2+ /hpf; Nitrate Urine Negative (Negative); Protein Urine Neg (Negative); RBC Urine 0-4 /hpf (0-2); Squamous Epithelial Cell Urine 0-4 /hpf (0-5); Urine Appearance Clear (CLEAR); Urine Color Yellow (Yellow); Urobilinogen Urine Neg (Negative); pH Urine 6 (5-7)
[2022-11-16 00:19] LABS: Add Urine Culture? No; Amorphous Sediment Urine 1+ /hpf
[2022-11-16 01:00] VITALS: BP 102/59; PULSE 90; RESP 17; TEMP 36.1
== END 2022-11-16 01:00 | disposition home or self-care (01) ==
LOC: OPOB 23:40 → OBGYN 23:42
PROVIDERS: PCP Family Medicine; Visit Provider Obstetrics & Gynecology
DX: O46.90 Antepartum hemorrhage, unspecified, unspecified trimester (principal); Z3A.21 21 weeks gestation of pregnancy
CPT/HCPCS: 76805; 81001; 99211

== ENCOUNTER 2022-11-17 14:13 | Outpatient (CLI) | payer OTHER, SELFPAY ==
--- NOTE | 2022-11-17 14:15 | US_ITS ---
WS: [id number] ULTRASOUND OB FOCUSED HISTORY: O46.90 - Antepartum hemorrhage. COMPARISON: 11/16/2022 and 10/31/2022. Single intrauterine gestation is identified. Fetus in transverse position. Placenta is anterior. Again noted is a nearly isoechoic area along the inferior placenta. Thought to be a retroplacental hemorrhage on the prior study. Area of retroplacental thickening measures 4.5 x 2 .4 cm. There is no increased vascularity. Grade 1 placenta. heart rate was not obtained but observed during real-time observation. Amniotic fluid index: 12.3 cm which is [place]. US/[place] [id number] IMPRESSION: 1. Focal retroplacental echogenicity displacing the placenta has not significa ntly changed since 11/16/2022. Thought to be a retroplacental hemorrhage on the prior study. No increase in size. 2. Normal amniotic fluid.
== END 2022-11-17 14:14 | disposition home or self-care (01) ==
PROVIDERS: PCP Family Medicine; Visit Provider Obstetrics & Gynecology
DX: O46.90 Antepartum hemorrhage, unspecified, unspecified trimester (principal); Z3A.00 Weeks of gestation of pregnancy not specified
CPT/HCPCS: 76816; 84315

== ENCOUNTER → 2022-11-24 09:22 | Outpatient (BNVA) | payer OTHER, SELFPAY | PROVIDERS: PCP Family Medicine; Visit Provider Obstetrics & Gynecology | DX: O09.899 Supervision of other high risk pregnancies, unspecified trimester (principal); Z3A.00 Weeks of gestation of pregnancy not specified | CPT/HCPCS: 76816 ==

== ENCOUNTER 2022-11-24 10:16 | Outpatient (CLI) | payer OTHER, SELFPAY ==
[2022-11-24 10:12] VITALS: BMI 36.9
[2022-11-24 10:21] VITALS: BP 110/58; PULSE 89
[2022-11-24 10:37] VITALS: BP 108/56; PULSE 94
[2022-11-24 10:52] VITALS: BP 105/55; PULSE 87
[2022-11-24 11:05] VITALS: BP 105/55; PULSE 87
== END 2022-11-24 11:05 | disposition home or self-care (01) ==
LOC: OPOB 10:18 → OBGYN 10:20
PROVIDERS: PCP Family Medicine; Visit Provider Obstetrics & Gynecology
DX: O16.9 Unspecified maternal hypertension, unspecified trimester (principal); Z3A.00 Weeks of gestation of pregnancy not specified
CPT/HCPCS: 99211

== ENCOUNTER 2023-01-08 20:42 | Emergency (ER) | payer OTHER, SELFPAY ==
[2023-01-08] VITALS (12 sets, daily range): BP systolic 109–131; BP diastolic 74–94; PULSE 108–188; RESP 14–23; TEMP 37.1; O2SAT 98–100; BMI 38.7
--- NOTE | 2023-01-08 20:49 | ED_ITS ---
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 She presents to the emergency department due to chest discomfort and palpitations with intermittent lightheadedness. Notes onset was acute without known specific provoking event. She tried home vagal maneuvers and carotid massage without improvement. Intensity symptoms is moderate. Course has persisted. Denies history of similar in the past. No leg swelling or new cramping recently, no history of thromboembolic disease. No other specific changes in health, exacerbating, or alleviating factors identified. Onset (ago): minute(s) Duration: constant Severity: severe Associated symptoms: Reports other (Chest discomfort, lightheadedness) Review of Systems General: Reports: 10 or more systems reviewed and unremarkable except in HPI and below PFSH ED PFSH: Medical History Anemia Reports being chronically anemic--states work-up has been done which only showed iron deficiency-have requested these records Cyst, ovary, dermoid Reports being diagnosed with a dermoid cyst either 4 mm or 4 cm in one of her ovaries in 2014. She states that she had serial ultrasounds that showed no growth and at the time of her in 2017 she was told that it resolved and she never had any surgical intervention. Hypothyroidism Diagnosed in 2017 and has been on medication. Reports that she is not very compliant with taking the medication. Insulin resistance Pituitary microadenoma Reports being diagnosed with a pituitary microadenoma in 2013 when she was undergoing evaluation for elevated prolactin. She had follow-up MRIs and was told everything was stable. She has not have this reevaluated since 2014. Recommend follow-up with endocrinology . She is asymptomatic Prediabetes Surgical History H/O esophagogastroduodenoscopy History of bunionectomy 2007 - Left foot History of delivery x2 04/17/2021-done by Dr. Wayne Hunter in [facility]. ----->Operative reports have been requested and received and scanned. Low transverse delivery for failure to progress-single layer closure with no extensions documented. 08/16/2021--schedule repeat delivery at 37 weeks for poorly controlled gestational diabetes. Performed by Dr. Teague at [facility] [place]. History of tonsillectomy and adenoidectomy 2004 Status post laparoscopic cholecystectomy (01/03/22) Family History Grandfather Cancer maternal, Lymphoma Diabetes maternal Hypertension Mother Diabetes Hypertension Grandmother Diabetes maternal Hypertension maternal Family/Other Thyroid disease maternal uncle Heart disease paternal aunt, paternal uncle Brother Diabetes Denies family history of Colon cancer Ovarian cancer Hypercholesteremia Breast cancer Uterine cancer Stroke Social History Smoking and tobacco status: never smoked Alcohol intake: never Substance/Drug Use: never Female Reproductive History: Spontaneous abortions: No Physical Exam Const: COMMON NORMALS: alert GENERAL APPEARANCE: cooperative and well developed HENMT: COMMON NORMALS: normocephalic and atraumatic HEAD & SCALP: normocephalic and atraumatic Eye: COMMON NORMALS: conjunctivae normal CONJUNCTIVA: Yes conjunctivae normal SCLERA: sclerae normal Neck/C-Spine: COMMON NORMALS: supple GENERAL: Yes trachea midline Resp: COMMON NORMALS: clear to auscultation bilaterally EFFORT & INSPECTION: Yes able to speak in complete sentences AUSCULTATION: clear to auscultation bilaterally Cardio: COMMON NORMALS: regular rhythm RATE: tachycardic RHYTHM: regular rhythm GI: COMMON NORMALS: Soft to palpation PALPATION: Yes Soft to palpation and No Tenderness to palpation present (GI) OTHER: Gravid Extremity: GENERAL: Yes normal exam except as noted and No edema Neuro: COMMON NORMALS: moves all extremities SENSORIUM/ORIENTATION: Yes alert and No Orientation impaired Psych: COMMON NORMALS: mental status grossly normal and Normal thought process present THOUGHT PROCESS: Normal thought process present Course Vital Signs: Vital signs: Vital Signs Temperature 98.8 F 01/08/23 23:56 Pulse Rate 108 H 01/08/23 23:39 Respiratory Rate 14 01/08/23 23:39 Blood Pressure 109/75 01/08/23 23:39 Pulse Oximetry 100 01/08/23 23:39 Oxygen Delivery Me thod Nasal Cannula 01/08/23 21:38 Oxygen Flow Rate 2 01/08/23 21:38 MDM - Arrhythmia/Palpitations Medical Decision Making Dr. Piper is a 37-year-old lady approximately 29 weeks JOHN 03/28/2023 with LMP 06/14/2022 presenting to the emergency department for palpitations and racing heart. On initial exam blood pressure adequate and patient appears to be in supraventricular tachycardia. She had tried vagal maneuvers and carotid massage as well as ice to face however symptoms continued. No history of similar. Fluid bolus and modified Valsalva performed without successful improvement in heart rate or successful cardioversion. [id number] limited echocardiogram performed without evidence of right heart strain or other obvious abnormality, rhythm does appear to be sinus. No pericardial effusion. [id number] limited obstetric with heart rate 146. Patient has not had abdominal pain or vaginal bleeding. Subsequently patient was given 6 mg adenosine bolus with successful termination of supraventricular tachycardia and sinus tachycardia was the resultant rhythm. Blood pressure remains adequate. Patient reports improvement though still is headache and occasional dizzy sensation. Laboratory studies notable for mild leukocytosis which may be reactive, normocytic anemia, normal platelet count. Metabolic panel with perhaps mild evidence of dehydration however likely physiologic changes secondary to . Elevated TSH with pending free T4. Patient is on levothyroxine. Urinalysis is unremarkable with no protein. There is no transaminitis and platelet count is normal as mentioned, no evidence of preeclampsia with severe features. After discussion D-dimer was ordered. Based on YEARS criteria D-dimer is negative and patient does not require CTA at this time. On reassessment patient remains in sinus tachycardia. She does still feel mildly lightheaded/dizzy and has a headache. No focal neurologic deficits reported. Given no history of similar and current with complications requiring follow-up with maternal- medicine patient requires further inpatient monitoring and testing as deemed appropriate by MFM/obstetrics. Discussed with Dr. Harrington who is on-call for patient's primary [employer] at [facility] and patient to be transferred to labor and delivery for further care. The results of ED evaluation were discussed with the patient including plan for transfer due to requirement for level of care not available if discharged to prevent significant worsening/deterioration. Patient agreeable with plan. Medical Records I reviewed the patient's medical records. Lab Data I reviewed the patient's lab results. 01/08/23 21:01 01/08/23 21:01 Laboratory Results WBC 13.7 10^3/uL (4.0-10.0) H 01/08/23 21:01 RBC 4.13 10^6/uL (4.1-5.3) 01/08/23 21:01 Hgb 11.4 g/dL (11.5-15.3) L 01/08/23 21:01 Hct 36.3 % (37.0-47.0) L 01/08/23 21: MCV 87.9 fl (81-99) 01/08/23 21: MCH 27.6 pg (28.0-34.0) L 01/08/23 21: MCHC 31.4 g/dL (30.0-36.0) 01/08/23 21: RDW 15.5 % (12.1-15.1) H 01/08/23 21: Plt Count 216 10^3/cmm (130-400) 01/08/23 21: MPV 10.8 fL (7.4-10.4) H 01/08/23 21:01 Neut % (Auto) 68.3 % 01/08/23 21: Lymph % (Auto) 22.9 % 01/08/23 21: [place] % (Auto) 4.9 % 01/08/23 21: Eos % (Auto) 1.5 % 01/08/23 21: Baso % (Auto) 0.3 % 01/08/23 21: Neut # (Auto) 9.38 10^3/uL (1.8-7.7) H 01/08/23 21: Lymph # (Auto) 3.2 10^3/uL (0.8-4.8) 01/08/23 21:01 [place] # (Auto) 0.7 10^3/uL (0.2-0.9) 01/08/23 21: Eos # (Auto) 0.2 10^3/uL (0.0-0.8) 01/08/23 21: Baso # (Auto) 0.0 10^3/uL (0.0-0.1) 01/08/23 21: Nucleated RBC % (auto) 0 % 01/08/23 21: Nucleated RBCs # 0.0 /100WBC 01/08/23 21:01 D-Dimer 0.66 ug/mIFEU (0-0.59) H 01/08/23 21:01 Sodium 137 mmol/L (136-145) 01/08/23 21:01 Potassium 3.9 mmol/L (3.5-5.1) 01/08/23 21:01 Chloride 104 mmol/L (98-107) 01/08/23 21:01 Carbon Dioxide 21 mmol/L (22-29) L 01/08/23 21:01 Anion Gap 15.9 (5-19) 01/08/23 21:01 BUN 9 mg/dL (6-20) 01/08/23 21:01 Creatinine 0.7 mg/dL (0.5-0.9) 01/08/23 21:01 GFR Calculation 95.2 mL/min (90-130) 01/08/23 21:01 Glucose 149 mg/dL (65-115) H 01/08/23 21:01 Calculated Osmolality 285 mOsm/kg (285-295) 01/08/23 21:01 Calcium 9.5 mg/dL (8.5-10.5) 01/08/23 21:01 Magnesium 1.7 mg/dL (1.7-2.3) 01/08/23 21:01 Total Bilirubin 0.2 mg/dL (0.15-1.2) 01/08/23 21:01 AST 10 U/L (0-32) 01/08/23 21:01 ALT 11 U/L (0-33) 01/08/23 21:01 Alkaline Phosphatase 110 U/L (35-105) H 01/08/23 21:01 Total Protein 7.6 g/dL (6.6-8.7) 01/08/23 21:01 Albumin 3.8 g/dL (3.5-5.2) 01/08/23 21:01 Globulin 3.8 g/dL (1.3-4.6) 01/08/23 21:01 TSH 4.91 uIU/mL (0.27-4.20) H 01/08/23 21:01 Free T4 0.93 ng/dL (0.82-1.77) 01/08/23 21:01 Urine Color Yellow (Yellow) 01/08/23 21:24 Urine Appearance Clear (CLEAR) 01/08/23 21:24 Urine pH 6.5 (5-7) 01/08/23 21:24 Ur Specific [place] 1.010 (1.005-1.030) 01/08/23 21:24 Urine Protein Neg (Negative) 01/08/23 21:24 Urine Glucose (UA) Norm (Normal) 01/08/23 21:24 Urine Ketones Negative (Negative) 01/08/23 21:24 Urine Blood Neg (Negative) 01/08/23 21:24 Urine Nitrate Negative (Negative) 01/08/23 21:24 Urine Bilirubin Neg (Negative) 01/08/23 21:24 Urine Urobilinogen Norm mg/dL (Negative) 01/08/23 21:24 Ur Leukocyte Esterase Negative (Negative) 01/08/23 21:24 U Random Total Protein 4 mg/dL 01/08/23 21:24 Urine Creatinine 24 mg/dL (28-217) L 01/08/23 21:24 Protein/Creatinin Ratio 0.17 mg/mg CR 01/08/23 21:24 Critical Care Time Critical Care Time: Critical Care Time: Yes Total Critical Care Time: 35 Attestation: Due to a high probability of clinically significant, possibly life threatening deterioration, the patient required my highest level of attention and preparedness to intervene emergently and I personally spent this critical care time directly and personally managing the patient. This critical care time included obtaining a history; examining the patient; pulse oximetry; ordering and review of laboratory and imaging studies; arranging urgent treatment with development of a management plan; evaluation of patient's response to treatment; frequent reassessment; and, discussions with other providers as applicable. It was exclusive of separately billable procedures. Primary system involved is cardiovascular. Discharge Plan Discharge Patient Disposition: Xfer Short-Term Hosp Clinical Impression: Supraventricular tachycardia, High risk case management patient Condition: Stable Referrals: Bassem Velez DO [Primary Care Provider] - Coding Level of Care Code ED Photographic Hand Developer for Antonia Frye
--- NOTE | 2023-01-08 20:51 | ECG_ITS ---
[facility] Test Date: 2023-01-08 Pat Name: Viola Piper Department: Room: Gender: Female Nutrition Manager: : 1985 Requested By: Feliciano Garcia Order Number: [id number] Jeffers MD: Laura Garcia M.D. Measurements Intervals [place] Rate: 169 P: 0 NV: 0 QRS: 69 QRSD: 67 T: -13 QT: 238 QTc: 399 Interpretive Statements SUPRAVENTRICULAR TACHYCARDIA NONSPECIFIC ST & T-WAVE ABNORMALITY CRITICAL TEST RESULT INTERPRETATION BASED ON A DEFAULT AGE OF 40 YEARS Compared to ECG 12/22/2021 15:29:33 T-wave abnormality now present Sinus rhythm no longer present Electronically Signed On 01-09-2023 16:26:55 CDT by Laura Garcia M.D. [id number] f
[2023-01-08 21:04] LABS: Basophils % 0.3 %; Eosinophils # 0.2 10^3/uL (0.0-0.8); Eosinophils % 1.5 %; Hematocrit 36.3 % (37.0-47.0); Hemoglobin 11.4 g/dL (11.5-15.3); Lymphocytes # 3.2 10^3/uL (0.8-4.8); Lymphocytes % 22.9 %; Mean Corpuscular HGB Conc 31.4 g/dL (30.0-36.0); Mean Corpuscular Hemoglobin 27.6 pg (28.0-34.0); Mean Corpuscular Volume 87.9 fl (81-99); Mean Platelet Volume 10.8 fL (7.4-10.4); Monocytes # 0.7 10^3/uL (0.2-0.9); Monocytes % 4.9 %; Neutrophils # 9.38 10^3/uL (1.8-7.7); Neutrophils % 68.3 %; Nucleated Red Blood Cells % 0 %; Platelet Count 216 10^3/cmm (130-400); Red Blood Count 4.13 10^6/uL (4.1-5.3); Red Cell Distribution Width 15.5 % (12.1-15.1); White Blood Count 13.7 10^3/uL (4.0-10.0)
[2023-01-08] MEDS: sodium chloride 0.9% 1,000 ML 999 ML IV ×2 (21:07→23:37)
--- NOTE | 2023-01-08 21:07 | PC.NURSE ---
pt placed on 2LNC for comfort of SOB due to HR and anxiety
[2023-01-08] MEDS: adenosine 3 mg/mL SDV 2mL 6 MG IVP (21:26)
--- NOTE | 2023-01-08 21:29 | ECG_ITS ---
[facility] Test Date: 2023-01-08 Pat Name: Viola Piper Department: Room: Gender: Female Customer Engagement Specialist: : 1985 Requested By: Feliciano Garcia Order Number: [id number] Jeffers MD: Laura Garcia M.D. Measurements Intervals [place] Rate: 125 P: 66 ID: 141 QRS: 43 QRSD: 78 T: 26 QT: 289 QTc: 417 Interpretive Statements SINUS TACHYCARDIA MODERATE ST DEPRESSION [0.05+ mV ST DEPRESSION] Compared to ECG 12/22/2021 15:29:33 ST (T wave) deviation now present Sinus rhythm no longer present Electronically Signed On 01-09-2023 16:25:48 CDT by Laura Garcia M.D. [id number] f
--- NOTE | 2023-01-08 21:30 | PC.NURSE ---
2120- Pt moved to trauma room 11. OB team at bedside to place baby on baby monitor. FTH prior to admin of adenosine 160's. FTH after adenosine 150's.
--- NOTE | 2023-01-08 21:32 | PC.NURSE ---
Pt states she is feeling better at this time. States she no longer has the feeling of palpitations.
[2023-01-08 21:36] LABS: Alanine Aminotransferase 11 U/L (0-33); Albumin Level 3.8 g/dL (3.5-5.2); Alkaline Phosphatase 110 U/L (35-105); Anion Gap 15.9 (5-19); Aspartate Amino Transferase 10 U/L (0-32); Blood Urea Nitrogen 9 mg/dL (6-20); Calcium 9.5 mg/dL (8.5-10.5); Carbon Dioxide 21 mmol/L (22-29); Chloride 104 mmol/L (98-107); Globulin 3.8 g/dL (1.3-4.6); Glomerular Filtration Rate 95.2 mL/min (90-130); Glucose 149 mg/dL (65-115); Magnesium 1.7 mg/dL (1.7-2.3); Osmolality Calculated 285 mOsm/kg (285-295); Potassium 3.9 mmol/L (3.5-5.1); Sodium 137 mmol/L (136-145); Thyroid Stimulating Hormone 4.91 uIU/mL (0.27-4.20); Total Bilirubin 0.2 mg/dL (0.15-1.2); Total Protein 7.6 g/dL (6.6-8.7)
[2023-01-08 21:44] LABS: Add Urine Microscopic? NO; Charge for UA Resulting for Rev
[2023-01-08 21:50] LABS: Bilirubin Urine Neg (Negative); Blood Urine Neg (Negative); Glucose Urine UA Norm (Normal); Ketones Urine Negative (Negative); Leukocyte Esterase Urine Negative (Negative); Nitrate Urine Negative (Negative); Protein Urine Neg (Negative); Urine Appearance Clear (CLEAR); Urine Color Yellow (Yellow); Urobilinogen Urine Norm (Negative); pH Urine 6.5 (5-7)
[2023-01-08 21:54] LABS: D Dimer 0.66 ug/mIFEU (0-0.59)
[2023-01-08 22:08] LABS: Urine Creatinine 24 mg/dL (28-217); Urine Protein Random 4 mg/dL
[2023-01-08 22:18] LABS: UPRO/UCREAT Ratio 0.17 mg/mg CR
[2023-01-08] MEDS: acetaminophen 500 mg Tablet 1000 MG PO (23:36)
[2023-01-08] MEDS: metformin 500 mg Tablet PO (23:36)
[2023-01-08] MEDS: levothyroxine 25 mcg Tablet PO (23:42)
[2023-01-08] MEDS: lidocaine 2% viscous 15 ML, aluminum-mag hydrox-simethicon 30 ML, sucralfate oral liq 1 GM PO (23:47)
[2023-01-09 01:21] LABS: Free T4 Free Thyroxine 0.93 ng/dL (0.82-1.77)
== END 2023-01-09 00:13 | disposition short-term general hospital (02) ==
PROVIDERS: Emergency Provider Emergency Medicine; PCP Family Medicine
DX: O99.413 Diseases of the circulatory system complicating pregnancy, third trimester (principal); I47.1 Supraventricular tachycardia; O13.3 Gestational [pregnancy-induced] hypertension without significant proteinuria, third trimester; O09.523 Supervision of elderly multigravida, third trimester; Z3A.29 29 weeks gestation of pregnancy
CPT/HCPCS: 80053; 81003; 82570; 83735; 84156; 84439; 84443; 85025; 85378; 93005; 96361; 96374; 99285; J0153; J7030

== ENCOUNTER 2023-01-18 12:04 | Outpatient (CLI) | payer OTHER, SELFPAY ==
[2023-01-18 12:05] VITALS: BMI 39.9
[2023-01-18 12:17] VITALS: BP 127/60; PULSE 93
--- NOTE | 2023-01-18 12:22 | US_ITS ---
WS: [id number] BIOPHYSICAL PROFILE AMNIOTIC FLUID HISTORY: GDMA WITH INSULIN SVT WITH TREATMENT COMPARISON: 11/24/2022, 11/17/2022 position: Vertex. Cardiac activity: 157 bpm. Cervix: Partially visualized. Placenta: Anterior, no previa or abruption. Previously described possible retroplacental hemorrhage a long the lower placental edge has significantly improved. No residual hematoma identified. Placenta grade: 1 Parameters are as follows: Breathin Movement: 2 Tone: 2 Fluid volume: 2 Amniotic Fluid Index: 18.9 cm. US/US OB BPP wo NST 27895 IMPRESSION: 1. Biophysical profile score: 8/8. 2. Normal amniotic fluid index. 3. Anterior placenta. No residual retroplacental hematoma on today's exam.
== END 2023-01-18 13:20 | disposition home or self-care (01) ==
LOC: OPOB 12:13 → OBGYN 12:14
PROVIDERS: PCP Family Medicine; Visit Provider Obstetrics & Gynecology
DX: Z36.9 Encounter for antenatal screening, unspecified (principal)
CPT/HCPCS: 59025; 76819; 99211

== ENCOUNTER 2023-01-25 17:10 | Outpatient (CLI) | payer OTHER, SELFPAY ==
[2023-01-25 17:19] VITALS: RESP 17; BMI 39.3
[2023-01-25 17:26] VITALS: BP 104/62; PULSE 107
[2023-01-25 17:41] VITALS: BP 105/65; PULSE 100
[2023-01-25 17:56] VITALS: BP 111/64; PULSE 104
[2023-01-25 18:11] VITALS: BP 105/61; PULSE 103
[2023-01-25 18:26] VITALS: BP 103/57; PULSE 100
--- NOTE | 2023-01-25 19:00 | PC.NURSE ---
pt waiting for BPP, BPP was ordered for STAT at 1719 and this nurse started calling ultrasound at 1754 via ultrasound cell phone,no answer. This nurse called platen press operator at 180 to connect this nurse to ultrasound, No answer. This nurse called at 181 ER to locate ultrasound, ER had not seen ultrasound. 182 this nurse called platen press operator again to connect to ultrasound, platen press operator called agency appointments supervisor to see who is on for ultrasound. ultrasound superior reported Laura was on tonight. This nurse called ER @ 182, ER medical records secretary found Laura personal cell phone and reported it to this nurse. This nurse called Laura personal cell phone, no answer. 183 This nurse called ER again to see if they saw Brace technician submarine cable equipment, reported no sighting of laura. Pt @ 183 requested to go home due to work schedule conflict. This nurse called at 183 to report a reactive NST but BPP was not preformed due to technician submarine cable equipment not found. Orders to discharge pt, pt to return tomorrow 01/26/23 for BPP only. Pt @ 1834 verbalized understanding. education of kick counts, undelivered instructions educated to pt and to return tomorrow 01/26/23. pt verbalized understanding. Laura technician submarine cable equipment came to floor at 1850, this nurse reported pt had to leave due to work conflict, laura stated How I am not suppose to perform BPP if they aren't here.
== END 2023-01-25 18:34 | disposition home or self-care (01) ==
LOC: OPOB 17:16 → OBGYN 17:17
PROVIDERS: PCP Family Medicine; Visit Provider Obstetrics & Gynecology
DX: O24.419 Gestational diabetes mellitus in pregnancy, unspecified control (principal); Z3A.00 Weeks of gestation of pregnancy not specified
CPT/HCPCS: 59025

== ENCOUNTER 2023-01-26 06:55 | Outpatient (CLI) | payer OTHER, SELFPAY ==
[2023-01-26 06:57] VITALS: BMI 39.3
--- NOTE | 2023-01-26 06:57 | US_ITS ---
WS: [id number] OB ultrasound for biophysical profile, 01/26/2023 Clinical Data: BPP LUCAS FOR GDM Comparison: OB ultrasound, 01/18/2023 Findings: There is a single intrauterine in the vertex presentation. The heart rate is 141 beat s per minute. The cervical length is 4.6 and it is closed. The placenta is anterior. The biophysical profile is 8 of 8 with normal scores for breathing, movement, posture and tone and amniotic fluid volume. US/US OB BPP NST 43407 Impression: 1. Single intrauterine in vertex presentation. 2. Biophysical profile 8 of 8. 3. heart rate 141 beats per minute.
[2023-01-26 07:00] VITALS: RESP 17
== END 2023-01-26 07:17 | disposition home or self-care (01) ==
LOC: OPOB 06:55 → OBGYN 06:56
PROVIDERS: PCP Family Medicine; Visit Provider Obstetrics & Gynecology
DX: O24.419 Gestational diabetes mellitus in pregnancy, unspecified control (principal); Z3A.00 Weeks of gestation of pregnancy not specified
CPT/HCPCS: 76819; 99211

== ENCOUNTER 2023-02-02 17:19 | Outpatient (CLI) | payer OTHER, SELFPAY ==
[2023-02-02 18:35] LABS: Ferritin 9 ng/mL (15-150); Iron 36 ug/dL (37-145)
[2023-02-02 18:40] LABS: Percent Saturation 7.4 % (20-50); Total Iron Binding Capacity 481 mcg/dl; Unsaturated Iron Binding 445 ug/dL (112-347)
[2023-02-02 18:50] LABS: Vitamin B12 257 pg/mL (232-1245)
== END 2023-02-02 17:20 | disposition home or self-care (01) ==
LOC: LAB 17:23
PROVIDERS: PCP Family Medicine; Visit Provider Family Medicine
DX: O09.299 Supervision of pregnancy with other poor reproductive or obstetric history, unspecified trimester (principal); O40.9XX0 Polyhydramnios, unspecified trimester, not applicable or unspecified; O44.00 Complete placenta previa NOS or without hemorrhage, unspecified trimester; Z86.32 Personal history of gestational diabetes
CPT/HCPCS: 82607; 82728; 83540; 83550

== ENCOUNTER 2023-02-02 17:52 | Outpatient (CLI) | payer OTHER, SELFPAY ==
[2023-02-02 17:52] VITALS: BMI 40.2
[2023-02-02 18:10] VITALS: BP 116/63; PULSE 96
[2023-02-02 18:30] VITALS: BP 114/62; PULSE 96
--- NOTE | 2023-02-02 18:32 | USR_ITS ---
PROCEDURE INFORMATION: Exam: US Biophysical Profile Without Non-Stress Test Exam date and time: 02/02/2023 7:10 PM Age: 37 years old Clinical indication: Abnormal findings; Abnormal ultrasonic screening; Third trimester (=28 weeks 0 days); ; Additional info: Gdm, polyhydramnios, previous placental abruption, with lucas per new dx of poly TECHNIQUE: Imaging protocol: US biophysical profile without non-stress testing. COMPARISON: US OB BPP wo NST [id number] 01/26/2023 7:04 AM FINDINGS: heart rate: 133 bpm Amniotic fluid index: LUCAS is 22.1 cm. BIOPHYSICAL PROFILE: breathing movement (BPP): 2 out of 2. body movement (BPP): 2 out of 2. tone (BPP): 2 out of 2. Amniotic fluid (BPP): 2 out of 2. US/US OB BPP wo NST [id number] IMPRESSION: Biophysical profile score is normal at 8/8.
[2023-02-02 18:50] VITALS: BP 133/67; PULSE 96
== END 2023-02-02 19:55 | disposition home or self-care (01) ==
LOC: OPOB 17:58 → OBGYN 17:59
PROVIDERS: PCP Family Medicine; Visit Provider Obstetrics & Gynecology
DX: O24.419 Gestational diabetes mellitus in pregnancy, unspecified control (principal); O40.3XX0 Polyhydramnios, third trimester, not applicable or unspecified; O09.893 Supervision of other high risk pregnancies, third trimester; Z3A.00 Weeks of gestation of pregnancy not specified
CPT/HCPCS: 59025; 76819

== ENCOUNTER 2023-02-08 16:00 | Outpatient (CLI) | payer OTHER, SELFPAY ==
[2023-02-08 16:00] VITALS: RESP 17; TEMP 36.7; BMI 40.2
--- NOTE | 2023-02-08 16:16 | USR_ITS ---
PROCEDURE INFORMATION: Exam: US Biophysical Profile Without Non-Stress Test Exam date and time: 02/08/2023 4:34 PM Age: 37 years old Clinical indication: Condition or disease; Other: Gestational diabetes; ; Additional info: Gdm, lucas TECHNIQUE: Imaging protocol: US biophysical profile without non-stress testing. COMPARISON: US OB BPP NST [id number] 02/02/2023 7:10 PM FINDINGS: heart rate: 136 bpm presentation: Cephalic intrauterine presentation. Placenta: Anterior placenta. Negative for previa. Amniotic fluid index: LUCAS is 15.4 cm. BIOPHYSICAL PROFILE: breathing movement (BPP): 2 out of 2. body movement (BPP): 2 out of 2. tone (BPP): 2 out of 2. Amniotic fluid (BPP): 2 out of 2. MATERNAL ANATOMY: Cervix: Cervical length measures 3 cm. Closed. US/US OB BPP NST [id number] IMPRESSION: 1. Single live intrauterine gestation. 2. Biophysical profile score 8/8.
== END 2023-02-08 17:05 | disposition home or self-care (01) ==
LOC: OPOB 16:01 → NUR 16:02 → OBGYN 16:08
PROVIDERS: PCP Family Medicine; Visit Provider Obstetrics & Gynecology
DX: O24.419 Gestational diabetes mellitus in pregnancy, unspecified control (principal); Z3A.00 Weeks of gestation of pregnancy not specified
CPT/HCPCS: 59025; 76819

== ENCOUNTER 2023-02-13 16:57 | Outpatient (CLI) | payer OTHER, SELFPAY ==
[2023-02-13 17:33] VITALS: BP 112/66; PULSE 93
[2023-02-13 17:53] VITALS: BP 115/60; PULSE 92
[2023-02-13 18:00] VITALS: BMI 40.8
[2023-02-13 18:14] VITALS: BP 130/60; PULSE 85
== END 2023-02-13 19:20 | disposition home or self-care (01) ==
LOC: OPOB 17:01 → OBGYN 17:10
PROVIDERS: PCP Family Medicine; Visit Provider Obstetrics & Gynecology
DX: O24.419 Gestational diabetes mellitus in pregnancy, unspecified control (principal); Z3A.00 Weeks of gestation of pregnancy not specified
CPT/HCPCS: 59025

== ENCOUNTER → 2023-02-16 10:05 | Day surgery (SDC) | payer OTHER, SELFPAY ==
[2023-02-16] MEDS: iron sucrose 200 MG in sodium chloride 0.9% (100 ml) 100 ML 220 MG IV (10:41)
[2023-02-16 10:42] VITALS: BP 96/65; PULSE 99; RESP 18; TEMP 36.6; O2SAT 96
--- NOTE | 2023-02-16 11:13 | PC.NURSE ---
Pt to GI infusions for Venofer 200 mg IV x 3 doses, 72 hours apart. Pt to return on Sunday and requests IV to be left in place due to difficult IV access. IV flushed with saline following Venofer infusion and secured with coban. Tolerated infusion well. No reaction noted.
== END ==
PROVIDERS: PCP Family Medicine; Visit Provider Family Medicine
DX: O99.019 Anemia complicating pregnancy, unspecified trimester (principal); D50.9 Iron deficiency anemia, unspecified; Z3A.00 Weeks of gestation of pregnancy not specified; Z79.899 Other long term (current) drug therapy
CPT/HCPCS: 96365; J1756

== ENCOUNTER 2023-02-16 12:18 | Outpatient (CLI) | payer OTHER, SELFPAY ==
[2023-02-16 12:21] VITALS: BMI 40.8
[2023-02-16 12:24] VITALS: TEMP 35.6
[2023-02-16 12:25] VITALS: BP 106/59; PULSE 88
[2023-02-16 12:26] VITALS: RESP 15
--- NOTE | 2023-02-16 12:26 | US_ITS ---
WS: [id number] BIOPHYSICAL PROFILE AMNIOTIC FLUID HISTORY: BPP with LUCAS COMPARISON: 02/08/2023 position: Vertex. Cardiac activity: 147 bpm. Cervix: closed. Placenta: Anterior, no previa or abruption. Placenta grade: 2 Parameters are as follows: Breathin Movement: 2 Tone: 2 Fluid volume: 2 Amniotic Fluid Index: 16.5 cm; single vertical pocket 4.4 cm. US/US OB BPP wo NST 18252 IMPRESSION: 1. Biophysical profile score: 8/8. 2. Normal amniotic fluid.
[2023-02-16 12:40] VITALS: BP 111/61; PULSE 82
--- NOTE | 2023-02-16 15:14 | PC.NURSE ---
Per charge coordinatorAnnetta CMAPO states she has notified Dr. Steel of LUCAS, NST BPP results. Orders were given for discharge at that time. GLORIA CAMPO
== END 2023-02-16 13:20 | disposition home or self-care (01) ==
LOC: OPOB 12:19 → OBGYN 12:20
PROVIDERS: PCP Family Medicine; Visit Provider Obstetrics & Gynecology
DX: Z36.9 Encounter for antenatal screening, unspecified (principal)
CPT/HCPCS: 59025; 76819; 99211

== ENCOUNTER → 2023-02-20 12:03 | Day surgery (SDC) | payer OTHER, SELFPAY ==
[2023-02-20] MEDS: iron sucrose 200 MG in sodium chloride 0.9% (100 ml) 100 ML 220 MG IV (12:29)
[2023-02-20 13:00] VITALS: BP 96/67; PULSE 100; RESP 18; TEMP 35.9; O2SAT 98
== END ==
PROVIDERS: PCP Family Medicine; Visit Provider Family Medicine
DX: O99.019 Anemia complicating pregnancy, unspecified trimester (principal); D50.9 Iron deficiency anemia, unspecified; Z79.899 Other long term (current) drug therapy; Z3A.00 Weeks of gestation of pregnancy not specified
CPT/HCPCS: 96365; J1756

== ENCOUNTER 2023-02-20 13:17 | Outpatient (CLI) | payer OTHER, SELFPAY ==
[2023-02-20] VITALS (7 sets, daily range): BP systolic 99–122; BP diastolic 55–61; PULSE 86–166; RESP 17; BMI 39.4
--- NOTE | 2023-02-20 13:26 | USR_ITS ---
PROCEDURE INFORMATION: Exam: US Biophysical Profile Without Non-Stress Test Exam date and time: 02/20/2023 2:15 PM Age: 37 years old Clinical indication: Screening exam; Routine US screening of fetus; Third trimester (=28 weeks 0 days); ; Additional info: Gdm poly nst TECHNIQUE: Imaging protocol: US biophysical profile without non-stress testing. COMPARISON: US OB BPP NST [id number] 02/16/2023 1:00 PM FINDINGS: Single living intrauterine gestation vertex presentation. Heart rate 129 BPM. Placenta is anterior without placenta previa. LUCAS 12.12 cm. Gestational age 34 weeks 6 days JOHN 03/28/2023 BIOPHYSICAL PROFILE: breathing movement (BPP): 2 out of 2. body movement (BPP): 2 out of 2. tone (BPP): 2 out of 2. Amniotic fluid (BPP): 2 out of 2. LUCAS 12.12 cm Total BPP: 88 US/US OB BPP NST [id number] IMPRESSION: 1. This total BPP 02/27. 2. Vertex presentation 3. LUCAS 12.12 cm 4. Gestational age 34 weeks 6 days JOHN 03/28/2023
== END 2023-02-20 14:40 | disposition home or self-care (01) ==
LOC: OPOB 13:23 → OBGYN 13:25
PROVIDERS: PCP Family Medicine; Visit Provider Obstetrics & Gynecology
DX: O24.419 Gestational diabetes mellitus in pregnancy, unspecified control (principal); Z3A.00 Weeks of gestation of pregnancy not specified
CPT/HCPCS: 59025; 76819; 99211

== ENCOUNTER 2023-02-22 11:38 | Outpatient (CLI) | payer OTHER, SELFPAY ==
[2023-02-22 12:08] VITALS: BP 111/61; PULSE 93
--- NOTE | 2023-02-22 12:21 | US_ITS ---
WS: [id number] BIOPHYSICAL PROFILE AMNIOTIC FLUID HISTORY: GDM, POLY, hx placental abruption COMPARISON: 02/20/2023 position: Vertex. Cardiac activity: 138 bpm. Cervix: closed. Placenta: Anterior, no previa or abruption. Placenta grade: 2 Parameters are as follows: Breathin Movement: 2 Tone: 2 Fluid volume: 2 Amniotic Fluid Index: 14.7 cm; single deep vertical pocket of 6.9 cm. US/US OB BPP wo NST 80219 IMPRESSION: 1. Biophysical profile score: 8/8. 2. Normal amniotic fluid.
[2023-02-22 12:23] VITALS: BP 115/67; PULSE 90
== END 2023-02-22 13:22 | disposition home or self-care (01) ==
LOC: OPOB 11:43 → OBGYN 11:45
PROVIDERS: PCP Family Medicine; Visit Provider Obstetrics & Gynecology
DX: O26.899 Other specified pregnancy related conditions, unspecified trimester (principal); R10.9 Unspecified abdominal pain; Z3A.00 Weeks of gestation of pregnancy not specified
CPT/HCPCS: 59025; 76819; 99211

== ENCOUNTER 2023-02-26 15:47 | Outpatient (CLI) | payer OTHER, SELFPAY ==
[2023-02-26 15:47] VITALS: BMI 40.2
--- NOTE | 2023-02-26 15:58 | US_ITS ---
WS: [email or web address] ULTRASOUND OB LIMITED TECHNIQUE: Limited ultrasound examination of the fetus. CLINICAL INFORMATION: GDM, hx previous abruption COMPARISON: February 22, 2023 FINDINGS: Single interuterine gestation. presentation is vertex Placental location is anterior. Placenta grade: 2 heart rate 120 BPM. Normal LUCAS 11.86 CM Largest single vertical pocket 7.2 cm Biophysical profile 6 out of 8. breathin movement: 2 tone: 2 Amniotic fluid: 2 US/US OB BPP wo NST 40257 IMPRESSION: Normal biophysical profile 6 out of 8 breathing not well appreciated but normal movement and cardiac acti vity
[2023-02-26 16:43] VITALS: BP 135/82; PULSE 100
[2023-02-26 17:03] VITALS: BP 132/72; PULSE 101
== END 2023-02-26 17:08 | disposition home or self-care (01) ==
LOC: OPOB 15:51 → OBGYN 15:53
PROVIDERS: PCP Family Medicine; Visit Provider Obstetrics & Gynecology
DX: O24.419 Gestational diabetes mellitus in pregnancy, unspecified control (principal); Z3A.00 Weeks of gestation of pregnancy not specified
CPT/HCPCS: 59025; 76819

== ENCOUNTER 2023-03-02 15:13 | Outpatient (CLI) | payer OTHER, SELFPAY ==
--- NOTE | 2023-03-02 15:17 | USR_ITS ---
PROCEDURE INFORMATION: Exam: US Biophysical Profile Without Non-Stress Test Exam date and time: 03/02/2023 4:01 PM Age: 37 years old Clinical indication: Other: Gdm; TECHNIQUE: Imaging protocol: US biophysical profile without non-stress testing. COMPARISON: US OB BPP NST [id number] 02/26/2023 4:08 PM FINDINGS: heart rate: A heart rate was not documented by the cartography supervisor. presentation: Cephalic presentation. Placenta: Anterior placenta. Amniotic fluid index: 15.0 cm. BIOPHYSICAL PROFILE: breathing movement (BPP): 2 out of 2. body movement (BPP): 2 out of 2. tone (BPP): 2 out of 2. Amniotic fluid (BPP): 2 out of 2. US/US OB BPP NST 34536 IMPRESSION: Biophysical profile score of 8/8.
[2023-03-02 15:18] VITALS: RESP 15
[2023-03-02 15:19] VITALS: BMI 40.2
[2023-03-02 15:22] VITALS: BP 120/76; PULSE 98
[2023-03-02 15:37] VITALS: BP 111/64; PULSE 93
== END 2023-03-02 16:15 | disposition home or self-care (01) ==
LOC: OPOB 15:13 → OBGYN 15:14
PROVIDERS: PCP Family Medicine; Visit Provider Obstetrics & Gynecology
DX: O24.419 Gestational diabetes mellitus in pregnancy, unspecified control (principal); Z3A.00 Weeks of gestation of pregnancy not specified
CPT/HCPCS: 59025; 76819

== ENCOUNTER 2023-03-05 17:05 | Outpatient (CLI) | payer OTHER, SELFPAY ==
[2023-03-05 17:05] VITALS: BMI 40.2
--- NOTE | 2023-03-05 17:09 | USR_ITS ---
PROCEDURE INFORMATION: Exam: US Biophysical Profile Without Non-Stress Test Exam date and time: 03/05/2023 5:21 PM Age: 37 years old Clinical indication: Condition or disease; Other: Gdm; TECHNIQUE: Imaging protocol: US biophysical profile without non-stress testing. COMPARISON: US OB BPP NST [id number] 03/02/2023 4:01 PM FINDINGS: heart rate: 141 bpm Amniotic fluid index: LUCAS is 14.6 cm. BIOPHYSICAL PROFILE: breathing movement (BPP): 2 out of 2. body movement (BPP): 2 out of 2. tone (BPP): 2 out of 2. Amniotic fluid (BPP): 2 out of 2. MATERNAL ANATOMY: Cervix: Cervical length measures 3.8 cm. US/US OB BPP NST 57157 IMPRESSION: Bowel physical profile total 02/27
[2023-03-05 17:12] VITALS: BP 107/66; PULSE 96
[2023-03-05 17:16] VITALS: RESP 16
[2023-03-05 17:27] VITALS: BP 127/75; PULSE 94
[2023-03-05 17:43] VITALS: BP 144/80; PULSE 95
[2023-03-05 18:00] VITALS: BP 144/80; PULSE 95; RESP 16
== END 2023-03-05 18:14 | disposition home or self-care (01) ==
LOC: OPOB 17:06 → OBGYN 17:07
PROVIDERS: PCP Family Medicine; Visit Provider Obstetrics & Gynecology
DX: O24.419 Gestational diabetes mellitus in pregnancy, unspecified control (principal); Z3A.00 Weeks of gestation of pregnancy not specified
CPT/HCPCS: 59025; 76819; 99211

== ENCOUNTER 2023-03-10 21:31 | Emergency (ER) | payer OTHER, SELFPAY ==
[2023-03-10 21:44] VITALS: BP 144/94; PULSE 88; RESP 18; O2SAT 97; BMI 38.4
[2023-03-10 21:54] VITALS: BP 136/89; PULSE 77; RESP 16; O2SAT 100
--- NOTE | 2023-03-10 22:01 | ED_ITS ---
HPI - General Adult General: Chief complaint: General Medical Stated complaint: high bp Time Seen by Provider: 03/10/23 21:45 Source: patient Mode of arrival: ambulatory History of Present Illness: 37-year-old female presents emergency room postop a 3 from the she delivered early because of concerns of preeclampsia. She was actually mildly hypotensive immediately but then today began to have a headache and had a blood pressure 160/100 at home. Protein to creatinine ratio had been climbing prior to delivery she was delivered by at 37 weeks. During her she did have difficulty with elevated blood pressures as well as some tacky arrhythmias. No other significant symptoms no abdominal pain no more right upper quadrant abdominal discomfort or pain, no shortness of breath no nausea or vomiting no chest pain no palpitations. Location: head Associated symptoms: Reports headache(s); Deny chest pain, dyspnea, malaise, nausea, rash, palpitations or short of breath Review of Systems Const: Denies: fever(s), chills, body aches, change in appetite, fatigue or malaise ENMT: Denies: throat pain, ear or mastoid pain, nasal discharge or nasal congestion Card: Denies: chest pain or palpitations Resp: Denies: dyspnea, productive cough or non-productive cough GI: Denies: nausea : Denies: flank pain, difficulty voiding, dysuria, urinary frequency or urinary urgency Skin/Breast: Denies: rash or pruritus Neuro: Reports: headache(s) [facility] ED PFSH: Medical History Anemia Reports being chronically anemic--states work-up has been done which only showed iron deficiency-have requested these records Cyst, ovary, dermoid Reports being diagnosed with a dermoid cyst either 4 mm or 4 cm in one of her ovaries in 2014. She states that she had serial ultrasounds that showed no growth and at the time of her in 2016 she was told that it resolved and she never had any surgical intervention. Hypothyroidism Diagnosed in 2017 and has been on medication. Reports that she is not very compliant with taking the medication. Insulin resistance Pituitary microadenoma Reports being diagnosed with a pituitary microadenoma in 2013 when she was undergoing evaluation for elevated prolactin. She had follow-up MRIs and was told everything was stable. She has not have this reevaluated since 2014. Recommend follow-up with endocrinology . She is asymptomatic Prediabetes Surgical History H/O esophagogastroduodenoscopy History of bunionectomy 2007 - Left foot History of delivery x2 04/17/2021-done by Dr. Wayne Hunter in [facility]. ----->Operative reports have been requested and received and scanned. Low transverse delivery for failure to progress-single layer closure with no extensions documented. 08/16/2021--schedule repeat delivery at 37 weeks for poorly controlled gestational diabetes. Performed by Dr. Teague at [facility]. History of tonsillectomy and adenoidectomy 2004 Status post laparoscopic cholecystectomy (01/03/22) Family History Grandfather Cancer maternal, Lymphoma Diabetes maternal Hypertension Mother Diabetes Hypertension Grandmother Diabetes maternal Hypertension maternal Family/Other Thyroid disease maternal uncle Heart disease paternal aunt, paternal uncle Brother Diabetes Denies family history of Colon cancer Ovarian cancer Hypercholesteremia Breast cancer Uterine cancer Stroke Social History Smoking and tobacco status: never smoked Alcohol intake: never Substance/Drug Use: never Female Reproductive History: Spontaneous abortions: No Physical Exam Const: GENERAL APPEARANCE: cooperative and comfortable ORIENTATION/CONSCIOUSNESS: Yes awake, Yes oriented to person, Yes oriented to place and Yes oriented to time HENMT: COMMON NORMALS: normocephalic, atraumatic and hearing grossly normal bilaterally HEAD & SCALP: normocephalic and atraumatic Resp: COMMON NORMALS: normal respiratory effort, No retractions, No use of accessory muscles and clear to auscultation bilaterally AUSCULTATION: clear to auscultation bilaterally Cardio: COMMON NORMALS: regular rate, regular rhythm and No murmurs present (Cardio) RATE: regular rate RHYTHM: regular rhythm GI: COMMON NORMALS: Soft to palpation and No hepatosplenomegaly present AUSCULTATION: Yes normoactive bowel sounds PALPATION: Yes Soft to palpation, No Tenderness to palpation present (GI), No Guarding due to palpation present (GI) and Yes No hepatosplenomegaly present Extremity: COMMON NORMALS: normal to inspection, capillary refill normal and no calf tenderness GENERAL: Yes edema (Trace lower extremity) Neuro: SENSORIUM/ORIENTATION: Yes oriented to person, Yes oriented to place and Yes oriented to time Skin: COMMON NORMALS: no rashes or lesions noted GENERAL SKIN EXAM: no rash es or lesions noted Course Vital Signs: Vital signs: Vital Signs Pulse Rate 76 03/10/23 23:44 Respiratory Rate 16 03/10/23 23:44 Blood Pressure 140/88 03/10/23 23:00 Pulse Oximetry 100 03/10/23 23:44 Oxygen Delivery Me thod Room Air 03/10/23 23:00 MDM - General Adult Medical Decision Making Labs and reviewed. Hemoglobin normal platelets normal liver functions normal blood pressure is improved. Reviewed findings with the patient at this point not recommend any intervention discharge home follow-up with OB. Return if is worsening persistent or recurrent symptoms or new or other concerning symptoms. Lab Data 03/10/23 22:09 03/10/23 22:09 Laboratory Results WBC 8.0 10^3/uL (4.0-10.0) 03/10/23 22:09 RBC 3.94 10^6/uL (4.1-5.3) L 03/10/23 22:09 Hgb 10.7 g/dL (11.5-15.3) L 03/10/23 22:09 Hct 35.2 % (37.0-47.0) L 03/10/23 22:09 MCV 89.3 fl (81-99) 03/10/23 22:09 MCH 27.2 pg (28.0-34.0) L 03/10/23 22:09 MCHC 30.4 g/dL (30.0-36.0) 03/10/23 22:09 RDW 19.3 % (12.1-15.1) H 03/10/23 22:09 Plt Count 251 10^3/cmm (130-400) 03/10/23 22:09 MPV 10.7 fL (7.4-10.4) H 03/10/23 22:09 Neut % (Auto) 62.4 % 03/10/23 22:09 Lymph % (Auto) 25.9 % 03/10/23 22:09 Pettis % (Auto) 6.9 % 03/10/23 22:09 Eos % (Auto) 3.2 % 03/10/23 22:09 Baso % (Auto) 0.4 % 03/10/23 22:09 Neut # (Auto) 5.00 10^3/uL (1.8-7.7) 03/10/23 22:09 Lymph # (Auto) 2.1 10^3/uL (0.8-4.8) 03/10/23 22:09 Pettis # (Auto) 0.6 10^3/uL (0.2-0.9) 03/10/23 22:09 Eos # (Auto) 0.3 10^3/uL (0.0-0.8) 03/10/23 22:09 Baso # (Auto) 0.0 10^3/uL (0.0-0.1) 03/10/23 22:09 Nucleated RBC % (auto) 0 % 03/10/23 22:09 Nucleated RBCs # 0.0 /100WBC 03/10/23 22:09 Sodium 138 mmol/L (136-145) 03/10/23 22:09 Potassium 3.7 mmol/L (3.5-5.1) 03/10/23 22:09 Chloride 103 mmol/L (98-107) 03/10/23 22:09 Carbon Dioxide 24 mmol/L (22-29) 03/10/23 22:09 Anion Gap 14.7 (5-19) 03/10/23 22:09 BUN 10 mg/dL (6-20) 03/10/23 22:09 Creatinine 0.5 mg/dL (0.5-0.9) 03/10/23 22:09 GFR Calculation 140.4 mL/min (90-130) H 03/10/23 22:09 Glucose 98 mg/dL (65-115) 03/10/23 22:09 POC Glucose 104 mg/dL (70-110) 03/10/23 22:10 Calculated Osmolality 285 mOsm/kg (285-295) 03/10/23 22:09 Calcium 9.3 mg/dL (8.5-10.5) 03/10/23 22:09 Total Bilirubin 0.2 mg/dL (0.15-1.2) 03/10/23 22:09 AST 14 U/L (0-32) 03/10/23 22:09 ALT 15 U/L (0-33) 03/10/23 22:09 Alkaline Phosphatase 113 U/L (35-105) H 03/10/23 22:09 Total Protein 6.5 g/dL (6.6-8.7) L 03/10/23 22:09 Albumin 3.2 g/dL (3.5-5.2) L 03/10/23 22:09 Globulin 3.3 g/dL (1.3-4.6) 03/10/23 22:09 Urine Color Yellow (Yellow) 03/10/23 22:00 Urine Appearance Clear (CLEAR) 03/10/23 22:00 Urine pH 7 (5-7) 03/10/23 22:00 Ur Specific Clint 1.010 (1.005-1.030) 03/10/23 22:00 Urine Protein Neg (Negative) 03/10/23 22:00 Urine Glucose (UA) Norm (Normal) 03/10/23 22:00 Urine Ketones Negative (Negative) 03/10/23 22:00 Urine Blood 3+ (Negative) H 03/10/23 22:00 Urine Nitrate Negative (Negative) 03/10/23 22:00 Urine Bilirubin Neg (Negative) 03/10/23 22:00 Urine Urobilinogen Norm mg/dL (Negative) 03/10/23 22:00 Ur Leukocyte Esterase Negative (Negative) 03/10/23 22:00 Urine RBC 50-80 /hpf (0-2) H 03/10/23 22:00 Urine WBC 0-4 /hpf (0-5) H 03/10/23 22:00 Ur Squamous Epith Cells 0-4 /hpf (0-5) H 03/10/23 22:00 Amorphous Sediment Not Reportable 03/10/23 22:00 Urine Bacteria Trace /hpf (NONE) 03/10/23 22:00 Discharge Plan Discharge Patient Disposition: Home Clinical Impression: Elevated blood pressure reading Condition: Stable Prescriptions: No Action (DME) Accu-Chek Guide test strips Strip See Rx Instructions .Route Qty: 100 3RF Rx Instructions: As directed (DME) FreeStyle Eleazar 2 Sensor Kit See Rx Instructions .Route Qty: 1 2RF Rx Instructions: As directed metformin 500 mg Tablet 500 mg PO DAILY Discharge Orders: Discharge ED (Routine); Ordered 03/10/23 Ordered By: Wang Navarro Referrals: Bassem Velez, [Primary Care Provider] - Discharge Diet: Usual diet Discharge Activity: Limit activity as instructed Patient Instructions: Opioid Safety, Pain Management Activity Restrictions/Additional Instructions: You are seen today for transient elevation in blood pressure. Your laboratory studies were unremarkable. There is no elevation of your liver functions and your hemoglobin is improving your platelet count was normal. Monitor blood pressure 2-3 times a day. Return if you have worsening symptoms or changes symptoms. Contact your devops solutions architect early next week if you have further problems. Coding Level of Care Code ED Optical Lathe Operator for Antonia Frye
--- NOTE | 2023-03-10 22:15 | ECG_ITS ---
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 Measurements Intervals [place] Rate: 78 P: 56 CT: 136 QRS: 13 QRSD: 88 T: 30 QT: 344 QTc: 393 Interpretive Statements SINUS RHYTHM Compared to ECG 01/08/2023 21:29:54 Sinus tachycardia no longer present ST (T wave) deviation no longer present Electronically Signed On 03-10-2023 23:20:35 CDT by Laura Garcia M.D. [id number]
[2023-03-10 22:21] LABS: Glucose Point of Care 104 mg/dL (70-110)
[2023-03-10 22:24] VITALS: BP 134/89; PULSE 82; O2SAT 100
[2023-03-10 22:24] LABS: Add Urine Culture? Yes; Add Urine Microscopic? YES; Bacteria Urine TRACE /hpf; Bilirubin Urine Neg (Negative); Blood Urine 3+ (Negative); Glucose Urine UA Norm (Normal); Ketones Urine Negative (Negative); Leukocyte Esterase Urine Negative (Negative); Nitrate Urine Negative (Negative); Protein Urine Neg (Negative); RBC Urine 50-80 /hpf (0-2); Squamous Epithelial Cell Urine 0-4 /hpf (0-5); Urine Appearance Clear (CLEAR); Urine Color Yellow (Yellow); Urobilinogen Urine Norm (Negative); WBC Urine 0-4 /hpf (0-5); pH Urine 7 (5-7)
[2023-03-10 22:24] LABS: Basophils % 0.4 %; Eosinophils # 0.3 10^3/uL (0.0-0.8); Eosinophils % 3.2 %; Hematocrit 35.2 % (37.0-47.0); Hemoglobin 10.7 g/dL (11.5-15.3); Lymphocytes # 2.1 10^3/uL (0.8-4.8); Lymphocytes % 25.9 %; Mean Corpuscular HGB Conc 30.4 g/dL (30.0-36.0); Mean Corpuscular Hemoglobin 27.2 pg (28.0-34.0); Mean Corpuscular Volume 89.3 fl (81-99); Mean Platelet Volume 10.7 fL (7.4-10.4); Monocytes # 0.6 10^3/uL (0.2-0.9); Monocytes % 6.9 %; Neutrophils % 62.4 %; Nucleated Red Blood Cells % 0 %; Platelet Count 251 10^3/cmm (130-400); Red Blood Count 3.94 10^6/uL (4.1-5.3); Red Cell Distribution Width 19.3 % (12.1-15.1)
[2023-03-10 22:37] LABS: Alanine Aminotransferase 15 U/L (0-33); Albumin Level 3.2 g/dL (3.5-5.2); Alkaline Phosphatase 113 U/L (35-105); Anion Gap 14.7 (5-19); Aspartate Amino Transferase 14 U/L (0-32); Blood Urea Nitrogen 10 mg/dL (6-20); Calcium 9.3 mg/dL (8.5-10.5); Carbon Dioxide 24 mmol/L (22-29); Chloride 103 mmol/L (98-107); Globulin 3.3 g/dL (1.3-4.6); Glomerular Filtration Rate 140.4 mL/min (90-130); Glucose 98 mg/dL (65-115); Osmolality Calculated 285 mOsm/kg (285-295); Potassium 3.7 mmol/L (3.5-5.1); Sodium 138 mmol/L (136-145); Total Bilirubin 0.2 mg/dL (0.15-1.2); Total Protein 6.5 g/dL (6.6-8.7)
[2023-03-10 23:00] VITALS: BP 140/88; PULSE 77; O2SAT 100
[2023-03-10 23:44] VITALS: PULSE 76; RESP 16; O2SAT 100
== END 2023-03-10 23:27 | disposition home or self-care (01) ==
PROVIDERS: Emergency Provider Family Medicine; PCP Family Medicine
DX: R03.0 Elevated blood-pressure reading, without diagnosis of hypertension (principal)
CPT/HCPCS: 36416; 80053; 81001; 82962; 85025; 87086; 93005; 99284

== ENCOUNTER 2023-05-04 08:29 | Outpatient (CLI) | payer OTHER, SELFPAY ==
[2023-05-04 09:28] LABS: Basophils % 0.6 %; Eosinophils # 0.2 10^3/uL (0.0-0.8); Eosinophils % 2.8 %; Hematocrit 39.2 % (36-47); Lymphocytes % 42.1 %; Mean Corpuscular HGB Conc 31.6 g/dL (30-55); Mean Corpuscular Hemoglobin 28.3 pg (27-33); Mean Corpuscular Volume 89.5 fl (85-98); Mean Platelet Volume 10.4 fL (7.4-10.4); Monocytes # 0.4 10^3/uL (0.2-0.9); Monocytes % 5.5 %; Neutrophils # 3.47 10^3/uL (1.8-7.7); Neutrophils % 48.9 %; Nucleated Red Blood Cells % 0 %; Platelet Count 249 10^3/cmm (157-399); Red Blood Count 4.38 10^6/uL (3.85-5.65); Red Cell Distribution Width 15.8 % (12.1-15.1)
[2023-05-04 10:04] LABS: Glucose Fasting 114 mg/dL (74-109)
[2023-05-04 10:07] LABS: Alanine Aminotransferase 53 U/L (0-33); Albumin Level 4.4 g/dL (3.5-5.2); Alkaline Phosphatase 95 U/L (35-105); Anion Gap 15.2 (5-19); Aspartate Amino Transferase 27 U/L (0-32); Blood Urea Nitrogen 13 mg/dL (6-20); Calcium 9.4 mg/dL (8.5-10.5); Carbon Dioxide 24 mmol/L (22-29); Chloride 101 mmol/L (98-107); Free T4 Free Thyroxine 0.93 ng/dL (0.82-1.77); Globulin 3.2 g/dL (1.3-4.6); Glomerular Filtration Rate 113.8 mL/min (90-130); Glucose 114 mg/dL (65-115); Osmolality Calculated 283 mOsm/kg (285-295); Potassium 4.2 mmol/L (3.5-5.1); Sodium 136 mmol/L (136-145); Thyroid Stimulating Hormone 5.16 uIU/mL (0.27-4.20); Total Bilirubin 0.2 mg/dL (0.15-1.2); Total Protein 7.6 g/dL (6.6-8.7)
[2023-05-04 11:42] LABS: Glucose 1 Hour 231 mg/dL
[2023-05-04 12:18] LABS: 25 Hydroxy Vitamin D 30 ng/mL (30-100); Vitamin B12 431 pg/mL (232-1245)
[2023-05-04 12:54] LABS: Glucose 2 Hour 185 mg/dL
== END 2023-05-04 08:30 | disposition home or self-care (01) ==
PROVIDERS: PCP Family Medicine; Visit Provider Internal Medicine
DX: D50.9 Iron deficiency anemia, unspecified (principal); E03.8 Other specified hypothyroidism; E06.3 Autoimmune thyroiditis; R73.03 Prediabetes
CPT/HCPCS: 80053; 82306; 82607; 82951; 84439; 84443; 85025

== ENCOUNTER 2023-06-25 22:38 | Emergency (ER) | payer OTHER, SELFPAY ==
[2023-06-25 22:40] VITALS: BP 134/94; PULSE 73; RESP 17; TEMP 36.6; O2SAT 100; BMI 37.5
--- NOTE | 2023-06-25 23:14 | W.ED.SKABFB ---
HPI - Skin/Abscess/Foreign Bdy General: Chief complaint: Skin/Abscess/Foreign Body Stated complaint: Left Finger Injury Time Seen by Provider: 06/25/23 23:00 History of Present Illness: 37-year-old female presents emergency department complaints of right index finger pain. She states she was lifting a couch and then started having swelling and pain to her right index finger. 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 She states the pain is a throbbing type pain that is a 5 out of 10. She states that she is unable to squeeze the purulent material out of her finger as there is too much pain. She denies fevers chills or night sweats numbness or tingling. Review of Systems General: Reports: 10 or more systems reviewed and unremarkable except in HPI and below Skin/Breast: Reports: erythema, skin tenderness and other (Phalen right index finger) [facility] ED PFSH: Medical History Anemia Reports being chronically anemic--states work-up has been done which only showed iron deficiency-have requested these records Cyst, ovary, dermoid Reports being diagnosed with a dermoid cyst either 4 mm or 4 cm in one of her ovaries in 2014. She states that she had serial ultrasounds that showed no growth and at the time of her in 2016 she was told that it resolved and she never had any surgical intervention. Hypothyroidism Diagnosed in 2017 and has been on medication. Reports that she is not very compliant with taking the medication. Insulin resistance Pituitary microadenoma Reports being diagnosed with a pituitary microadenoma in 2013 when she was undergoing evaluation for elevated prolactin. She had follow-up MRIs and was told everything was stable. She has not have this reevaluated since 2014. Recommend follow-up with endocrinology . She is asymptomatic Prediabetes Surgical History H/O esophagogastroduodenoscopy History of bunionectomy 2007 - Left foot History of delivery x2 04/17/2021-done by Dr. Wayne Hunter in [facility]. ----->Operative reports have been requested and received and scanned. Low transverse delivery for failure to progress-single layer closure with no extensions documented. 08/16/2021--schedule repeat delivery at 37 weeks for poorly controlled gestational diabetes. Performed by Dr. Teague at [facility]. History of tonsillectomy and adenoidectomy 2004 Status post laparoscopic cholecystectomy (01/03/22) Family History Grandfather Cancer maternal, Lymphoma Diabetes maternal Hypertension Mother Diabetes Hypertension Grandmother Diabetes maternal Hypertension maternal Family/Other Thyroid disease maternal uncle Heart disease paternal aunt, paternal uncle Brother Diabetes Denies family history of Colon cancer Ovarian cancer Hypercholesteremia Breast cancer Uterine cancer Stroke Social History Smoking and tobacco/nicotine status: never used tobacco/nicotine Alcohol intake: never Substance/Drug Use: never Female Reproductive History: Spontaneous abortions: No Physical Exam Narrative: EXAM NARRATIVE: Constitutional: the patient appears well nourished and of normal development. Vital signs as documented. No acute distress at present. Alert and oriented-to person, place, time and situation. Head, eyes, ears, nose, mouth, throat: Normocephalic, atraumatic. Pupils-equal, round, reactive to light. No scleral icterus. Normal-appearing external ears. Normal appearing nasal turbinates, no drainage. Neck: Supple, trachea is midline, no jugular venous distension, thyromegaly, or carotid bruits. Carotid upstrokes are brisk bilaterally. Lungs: clear to auscultation to all lung lyle. Symmetrical rise and fall of chest, no obvious signs of increased work of breathing at present. Cardiac: Regular rate and rhythm, positive S1, S2. No murmurs, rubs or gallops that I can appreciate Abdomen: Soft, non-tender to palpation, normal active bowel sounds to all quadrants. No palpable masses, no organomegaly and abdominal bruits. Extremities: 2+ pulses in the upper extremities that are equal bilaterally, 2+ pulses in the lower extremities that are equal bilaterally. Non-edematous. Moves all extremities well, sensation to all extremities are noted. Right distal index positive for Phalen, tender to palpation, superficial cellulitis noted. Skin: Warm, dry, intact. Course Vital Signs: Vital signs: Vital Signs Temperature 97.8 F 06/25/23 22:40 Pulse Rate 73 12/04/23 22:40 Respiratory Rate 18 06/25/23 23:23 Blood Pressure 134/94 06/25/23 22:40 Pulse Oximetry 100 06/25/23 23:23 Oxygen Delivery Me thod Room Air 06/25/23 22:40 MDM - Skin/Abscess/Foreign Bdy Medicial Decision Making Physical exam completed and documented, I will provide the patient incision and drainage as well as pain medication. Medical Records I reviewed the patient's medical records. No radiology studies performed this visit Discharge Plan Discharge Patient Disposition: Home Clinical Impression: Abscess around nail of right index finger Condition: Stable Prescriptions: No Action (DME) Accu-Chek Guide test strips Strip See Rx Instructions .Route Qty: 100 3RF Rx Instructions: As directed azithromycin [Zithromax Z-Ander] 250 mg tablet See Rx Instructions PO .COMPLEX Qty: 6 0RF Rx Instructions: take 500 mg today (day 1), then 250 mg for 4 days (days 2-5) PO propranolol 10 mg tablet 10 mg PO BID Qty: 60 3RF albuterol sulfate 90 mcg/actuation HFA aerosol inhaler 1 inh inhalation QID PRN (Reason: shortness of breath or wheezing) Qty: 8.5 3RF fluticasone propionate [Flonase Allergy Relief] 50 mcg/actuation spray,suspension 1 spray intranasal BID Qty: 16 3RF Rx Instructions: administer into each nostril hydrocodone-acetaminophen 5-325 mg tablet 1 tab PO Q8H PRN (Reason: pain) 7 Days Qty: 14 0RF metformin 500 mg tablet extended release 24 hr 1,000 mg PO BID 90 Days Qty: 360 3RF levothyroxine 25 mcg tablet 25 mcg PO DAILY 90 Days Qty: 90 3RF (DME) FreeStyle Eleazar 2 Sensor Kit See Rx Instructions .Route Qty: 4 0RF Rx Instructions: As directed Discharge Orders: Discharge ED (Routine); Ordered 06/26/23 Ordered By: Robe Ng Referrals: Bassem Velez, [Primary Care Provider] - Discharge Diet: Advance as tolerated Discharge Activity: Resume usual activity Patient Instructions: Opioid Safety, Pain Management Activity Restrictions/Additional Instructions: Activity Restrictions/Additional Instructions: Thank you for choosing [facility] for your healthcare needs today. Please realize that you were seen in the Emergency Department and that we are providing you with an emergency medical screening exam and this may not be complete and all inclusive of all the testing and or medical work-up that you may need to determine your ailment or severity of your illness. It is very important that you follow-up as instructed with your Primary care provider or Specialist for additional evaluation and to discuss your medical treatment plan. You may return to the Emergency Department should you have concerns or if your condition changes or worsens in any way. Coding Level of Care Code ED Pit Hoist Operator for Antonia Frye
[2023-06-25 23:23] VITALS: RESP 18; O2SAT 100
[2023-06-25] MEDS: morphine 4 mg/mL SDV 1 mL 2 MG IM (23:23)
[2023-06-25] MEDS: ondansetron 4 MG Tablet PO (23:26)
[2023-06-25] MEDS: lidocaine 1% INJ 20 mL INJECTION (23:59)
[2023-06-26] MEDS: neomycin-poly-bacitracin oint 28 gm 1 APPLIC TOPICAL (00:05)
[2023-06-26 00:10] VITALS: BP 145/84; PULSE 70; O2SAT 99
== END 2023-06-26 00:10 | disposition home or self-care (01) ==
PROVIDERS: Emergency Provider Internal Medicine; PCP Family Medicine
DX: L03.011 Cellulitis of right finger (principal); Z79.84 Long term (current) use of oral hypoglycemic drugs
CPT/HCPCS: 26010; 96372; 99284; J2270; Q0162

== ENCOUNTER 2023-07-15 13:29 | Outpatient (CLI) | payer OTHER, SELFPAY ==
--- NOTE | 2023-07-15 13:37 | XRR_ITS ---
PROCEDURE INFORMATION: Exam: XR Right Foot Exam date and time: 07/15/2023 1:38 PM Age: 37 years old Clinical indication: right foot pain, possible stress fracture of metatarsal TECHNIQUE: Imaging protocol: Radiologic exam of the right foot. Views: 3 or more views. COMPARISON: No relevant prior studies available. FINDINGS: Bones/joints: Mild hallux valgus. Soft tissues: Normal. XR/XR foot RT min 3V* [id number] IMPRESSION: No acute findings. There is mild hallux valgus.
== END 2023-07-15 13:30 | disposition home or self-care (01) ==
PROVIDERS: PCP Family Medicine; Visit Provider Podiatrist Foot & Ankle Surgery
DX: M79.671 Pain in right foot (principal)
CPT/HCPCS: 73630

== ENCOUNTER 2023-07-18 14:30 | Outpatient (CLI) | payer OTHER, SELFPAY ==
--- NOTE | 2023-07-18 14:45 | MR_ITS ---
WS: [id number] MRI HEAD WITHOUT AND WITH GADOLINIUM ENHANCEMENT WITH ATTENTION TO THE PITUITARY. TECHNIQUE: Sagittal T1, T2 axial, T2 axial FLAIR, axial susceptibility weighted imaging, axial diffus ion weighted images, and coronal T2 images were obtained. Pre and post-T1 axial and post T1 coronal i mages. ADC and FSPGR images. Dynamic pituitary imaging was obtained CLINICAL INFORMATION: worsening headaches and pituitary adenoma COMPARISON: MRI 02/15/2022 FINDINGS: No evidence of restricted diffusion to suggest acute ischemia. Ventricular system and basilar cistern s are patent. A few tiny foci of T2 hyperintensity in the frontal subcortical white matter are unchan ged from previous and of doubtful clinical significance. This can be seen with migraine headaches. Si ngle tiny focus of T2 hyperintensity in the RIGHT cerebellum also unchanged from previous. Normal posterior fossa. Normal vascular flow voids at the skull base. No extra-axial fluid collection s. No evidence of mass or mass effect. Paranasal sinuses and mastoid air cells are well aerated. Norm al posterior nasopharynx. Normal parapharyngeal fat. Orbits are normal. No hemosiderin on the susceptibility weighted images. Normal optic chiasm and pituitary infundibulum. Normal cavernous sinuses and Meckel's cave. Previously described suspected pituitary microadenoma in the RIGHT aspect of the sella is essentially resolved. Only a tiny amount of residual hypoenhancement seen in the RIGHT pituitary on the dynamic imaging today. Pituitary tissue is otherwise normal in appearance. No evidence of suprasellar mass or lesion. No abnormal gadolinium enhancement. Normal dural venous sinuses. No other suspicious findings. IMPRESSION: 1. Previously described hypoenhancing microadenoma appears improved compared to previous and nearly resolved with only a tiny faint focus of residual hypoenhancement in the RIGHT pituitary only seen on the dynamic imaging. 2. Otherwise no evidence of sellar or suprasellar mass. Normal optic chiasm and pituitary infundibul um. 3. No restricted diffusion to suggest acute ischemia. 4. A few tiny stable foci of T2 hyperintensity in the frontal subcortical white matter can be seen w ith migraine headaches. 5. Single tiny nonspecific focus of T2 hyperintensity in the RIGHT cerebellum is stable.
[2023-07-18] MEDS: gadobenate dimeglumine 20 mL vial IV (15:19)
== END 2023-07-18 14:31 | disposition home or self-care (01) ==
LOC: RAD 14:31
PROVIDERS: PCP Family Medicine; Visit Provider Internal Medicine
DX: D35.2 Benign neoplasm of pituitary gland (principal); G43.709 Chronic migraine without aura, not intractable, without status migrainosus
CPT/HCPCS: 70553; A9577

== ENCOUNTER 2023-09-11 19:26 | Emergency (ER) | payer OTHER, SELFPAY ==
[2023-09-11 19:27] VITALS: BP 142/85; PULSE 93; RESP 16; TEMP 36.5; O2SAT 100
--- NOTE | 2023-09-11 19:35 | CTR_ITS ---
PROCEDURE INFORMATION: Exam: CT Abdomen And Pelvis With Contrast Exam date and time: 09/11/2023 8:11 PM Age: 37 years old Clinical indication: Abdominal pain; Generalized; Prior surgery; Surgery date: 6+ months; Surgery type: Kimberly, c sections; Additional info: Abd pain TECHNIQUE: Imaging protocol: Computed tomography of the abdomen and pelvis with contrast. Radiation optimization: All CT scans at this facility use at least one of these dose optimization techniques: automated exposure control; mA and/or kV adjustment per patient size (includes targeted exams where dose is matched to clinical indication); or iterative reconstruction. Contrast material: OMNI 350; Contrast volume: 100 ml; Contrast route: INTRAVENOUS (IV); COMPARISON: CT kidney stone [id number] 06/09/2022 7:15 AM RADIATION DOSE METRICS: Total DLP (mGy-cm): 869 FINDINGS: Liver: The liver is normal. No hepatic masses are identified. Gallbladder and bile ducts: The gallbladder is surgically absent. There is no ductal dilatation. Pancreas: The pancreas is normal. Spleen: The spleen is normal. Adrenal glands: The adrenal glands are normal. Kidneys and ureters: There is a 1.7 cm simple cyst arising from the upper pole of the left kidney. No follow-up is required. There is otherwise normal enhancement of the kidneys. There is a stable punctate nonobstructing right mid renal calculus. There is no hydronephrosis. Stomach and bowel: Unremarkable. No obstruction. No mucosal thickening. Appendix: A normal appendix is identified. Intraperitoneal space: Unremarkable. No free air. No significant fluid collection. Vasculature: Unremarkable. No abdominal aortic aneurysm. Lymph nodes: Unremarkable. No enlarged lymph nodes. Urinary bladder: Unremarkable as visualized. Reproductive: The uterus is present. 2.1 cm simple cyst in the left adnexa consistent with physiologic finding. Bones/joints: Unremarkable. No acute fracture. Soft tissues: Small periumbilical hernia containing only fat, stable. CT/CT abdomen pelvis w con* [id number] IMPRESSION: 1. No evidence of acute intra-abdominal or pelvic process. 2. Stable/nonemergent findings detailed above.
--- NOTE | 2023-09-11 19:48 | ED_ITS ---
HPI - Abdominal Pain 2 General: Chief Complaint: Abdominal Pain Stated Complaint: abd pain Time Seen by Provider: 09/11/23 19:35 Source: patient Mode of arrival: ambulatory Limitations: no limitations History of Present Illness: 37-year-old female states she had a sync opal event on Sunday states that since then she has been having lower abdominal pain states that on Sunday she is having some right lower quadrant pain has had persistent left lower quadrant pain since then. States pain is worsening pain is now 6 out of 10 she denies any diarrhea no vomiting has had nausea denies any fevers it is worse with standing and moving Associated Symptoms: Reports syncope; Denies chills, diarrhea, dysuria, fever(s), nausea and vomiting Review of Systems 2 Const: Denies: fever(s) or chills Card: Reports: syncope; Denies: chest pain Resp: Denies: dyspnea GI: Reports: abdominal pain; Denies: nausea, vomiting or diarrhea : Denies: dysuria Musc: Denies: neck pain or back pain PFSH ED 2 PFSH: Medical History Insulin resistance Prediabetes Pituitary microadenoma Reports being diagnosed with a pituitary microadenoma in 2013 when she was undergoing evaluation for elevated prolactin. She had follow-up MRIs and was told everything was stable. She has not have this reevaluated since 2014. Recommend follow-up with endocrinology . She is asymptomatic Cyst, ovary, dermoid Reports being diagnosed with a dermoid cyst either 4 mm or 4 cm in one of her ovaries in 2014. She states that she had serial ultrasounds that showed no growth and at the time of her in 2016 she was told that it resolved and she never had any surgical intervention. Anemia Reports being chronically anemic--states work-up has been done which only showed iron deficiency-have requested these records Hypothyroidism Diagnosed in 2017 and has been on medication. Reports that she is not very compliant with taking the medication. Surgical History Status post laparoscopic cholecystectomy (01/03/22) H/O esophagogastroduodenoscopy History of delivery x2 04/17/2021-done by Dr. Wayne Hunter in [facility]. ----->Operative reports have been requested and received and scanned. Low transverse delivery for failure to progress-single layer closure with no extensions documented. 08/16/2021--schedule repeat delivery at 37 weeks for poorly controlled gestational diabetes. Performed by Dr. Teague at [facility] [place]. History of tonsillectomy and adenoidectomy 2003 History of bunionectomy 2008 - Left foot Family History Grandfather Cancer maternal, Lymphoma Diabetes maternal Hypertension Mother Diabetes Hypertension Grandmother Diabetes maternal Hypertension maternal Family/Other Thyroid disease maternal uncle Heart disease paternal aunt, paternal uncle Brother Diabetes Denies family history of Colon cancer Ovarian cancer Hypercholesteremia Breast cancer Uterine cancer Stroke Social History Smoking and tobacco/nicotine status: never used tobacco/nicotine Alcohol intake: never Substance/Drug Use: never Female Reproductive History: Spontaneous abortions: No Physical Exam 2 Const: COMMON NORMALS: no acute distress, patient oriented x3 and healthy appearing HENMT: COMMON NORMALS: normocephalic and atraumatic HEAD & SCALP: n ormocephalic and atraumatic Neck/C-Spine: COMMON NORMALS: supple Chest: COMMONS NORMALS: normal inspection of the chest Resp: COMMON NORMALS: normal respiratory effort, No retractions, No use of accessory muscles and clear to auscultation bilaterally AUSCULTATION: clear to auscultation bilaterally Cardio: COMMON NORMALS: regular rate, regular rhythm and No murmurs present (Cardio) RATE: regular rate RHYTHM: regular rhythm GI: COMMON NORMALS: Normal to inspection, nondistended, normoactive bowel sounds present, Soft to palpation, non-tender and no masses PALPATION: Yes Soft to palpation and Yes Tenderness to palpation present (GI) Details: LLQ Extremity: COMMON NORMALS: normal to inspection and full ROM Neuro: COMMON NORMALS: patient oriented x3, moves all extremities and no focal motor deficits Psych: COMMON NORMALS: mental status grossly normal, Normal thought process present and cooperative THOUGHT PROCESS: Normal thought process present Skin: COMMON NORMALS: no rashes or lesions noted and no wounds GENERAL SKIN EXAM: no rashes or lesions noted Course 2 Vital Signs: Vital signs: Vital Signs Temperature 97.7 F 09/11/23 19:27 Pulse Rate 93 09/11/23 19:27 Respiratory Rate 16 02/20/24 19:27 Blood Pressure 142/85 09/11/23 19:27 Pulse Oximetry 100 09/11/23 19:27 Oxygen Delivery Me thod Room Air 09/11/23 19:27 MDM - Abdominal Pain Medical Decision Making Patient presents here with abdominal pain left lower quadrant pain CT showed no acute findings she does have a physiological cyst no signs of diverticulitis or appendicitis she is stable for discharge at this time follow-up with PCP Medical Records I reviewed the patient's medical records. Lab Data I reviewed the patient's lab results. 09/11/23 20:02 09/11/23 20:02 Labs/Radiology: Radiology Impressions Abdomen/Pelvis CT 09/11/23 19:35 IMPRESSION: 1. No evidence of acute intra-abdominal or pelvic process. 2. Stable/nonemergent findings detailed above. Laboratory Results WBC 9.18 10^3/uL (3.29-11.43) 09/11/23 20:02 RBC 4.12 10^6/uL (3.85-5.65) 09/11/23 20:02 Hgb 11.80 g/dL (11.27-16.99) 09/11/23 20:02 Hct 35.6 % (36-47) L 09/11/23 20:02 MCV 86.4 fl (85-98) 09/11/23 20:02 MCH 28.6 pg (27-33) 09/11/23 20:02 MCHC 33.1 g/dL (30-55) 09/11/23 20:02 RDW 13.4 % (12.1-15.1) 09/11/23 20:02 Plt Count 260 10^3/cmm (157-399) 09/11/23 20:02 MPV 10.9 fL (7.4-10.4) H 09/11/23 20:02 Neut % (Auto) 57.2 % 09/11/23 20:02 Lymph % (Auto) 33.8 % 09/11/23 20:02 Bailey % (Auto) 5.9 % 09/11/23 20:02 Eos % (Auto) 2.3 % 09/11/23 20:02 Baso % (Auto) 0.5 % 09/11/23 20:02 Neut # (Auto) 5.25 10^3/uL (1.8-7.7) 09/11/23 20:02 Lymph # (Auto) 3.1 10^3/uL (0.8-4.8) 09/11/23 20:02 Bailey # (Auto) 0.5 10^3/uL (0.2-0.9) 09/11/23 20:02 Eos # (Auto) 0.2 10^3/uL (0.0-0.8) 09/11/23 20:02 Baso # (Auto) 0.1 10^3/uL (0.0-0.1) 09/11/23 20:02 Nucleated RBC % (auto) 0 % 09/11/23 20:02 Nucleated RBCs # 0.0 /100WBC 09/11/23 20:02 Sodium 135 mmol/L (136-145) L 09/11/23 20:02 Potassium 3.8 mmol/L (3.5-5.1) 09/11/23 20:02 Chloride 102 mmol/L (98-107) 09/11/23 20:02 Carbon Dioxide 23 mmol/L (22-29) 09/11/23 20:02 Anion Gap 13.8 (5-19) 09/11/23 20:02 BUN 10 mg/dL (6-20) 09/11/23 20:02 Creatinine 0.5 mg/dL (0.5-0.9) 09/11/23 20:02 GFR Calculation 140.4 mL/min (90-130) H 09/11/23 20:02 Glucose 117 mg/dL (65-115) H 09/11/23 20:02 Calculated Osmolality 280 mOsm/kg (285-295) L 09/11/23 20:02 Calcium 9.3 mg/dL (8.5-10.5) 09/11/23 20:02 Total Bilirubin 0.3 mg/dL (0.15-1.2) 09/11/23 20:02 AST 16 U/L (0-32) 09/11/23 20:02 ALT 18 U/L (0-33) 09/11/23 20:02 Alkaline Phosphatase 85 U/L (35-105) 09/11/23 20:02 Total Protein 7.3 g/dL (6.6-8.7) 09/11/23 20:02 Albumin 4.1 g/dL (3.5-5.2) 09/11/23 20:02 Globulin 3.2 g/dL (1.3-4.6) 09/11/23 20:02 Lipase 35 U/L (13-60) 09/11/23 20:02 HCG, Qual Negative (Negative) 09/11/23 20:02 Urine Color Yellow (Yellow) 09/11/23 20:55 Urine Appearance Clear (CLEAR) 09/11/23 20:55 Urine pH 6 (5-7) 09/11/23 20:55 Ur Specific [place] 1.010 (1.005-1.030) 09/11/23 20: Urine Protein Neg (Negative) 09/11/23 20: Urine Glucose (UA) Norm (Normal) 09/11/23 20: Urine Ketones Negative (Negative) 09/11/23 20: Urine Blood Neg (Negative) 09/11/23 20: Urine Nitrate Negative (Negative) 09/11/23 20:55 Urine Bilirubin Neg (Negative) 09/11/23 20:55 Urine Urobilinogen Norm mg/dL (Negative) 09/11/23 20:55 Ur Leukocyte Esterase Negative (Negative) 09/11/23 20:55 All radiology interpretation(s) finalized by discharge Discharge Plan Discharge Patient Disposition: Home Clinical Impression: Abdominal pain Condition: Stable Prescriptions: No Action (DME) Accu-Chek Guide test strips Strip See Rx Instructions .Route Qty: 100 3RF Rx Instructions: As directed albuterol sulfate 90 mcg/actuation HFA aerosol inhaler 1 inh inhalation QID PRN (Reason: shortness of breath or wheezing) Qty: 8.5 3RF propranolol 10 mg tablet 10 mg PO BID Qty: 90 5RF (DME) FreeStyle Eleazar 2 Sensor Kit See Rx Instructions .Route Qty: 4 0RF Rx Instructions: As directed Ozempic 1 mg/dose (4 mg/3 mL) pen injector 1 mg SUBCUT .weekly 90 Days Qty: 3 1RF Rx Instructions: 1mg weekly Ozempic 0.25 mg or 0.5 mg (2 mg/3 mL) pen injector 0.25 mg SUBCUT .weekly Qty: 3 0RF Rx Instructions: .25mg weekly x one month Ozempic 0.25 mg or 0.5 mg (2 mg/3 mL) pen injector 0.5 mg SUBCUT Q7D 30 Days Qty: 3.68 0RF Rx Instructions: 0.5mg weekly [id number] Discharge Orders: Discharge ED (Routine); Ordered 09/11/23 Ordered By: Moi Diaz Referrals: Bassem Velez DO [Primary Care Provider] - Discharge Diet: Advance as tolerated Discharge Activity: Resume usual activity Patient Instructions: Abdominal Pain (ED) Coding Level of Care Code ED Java User Interface Developer for Anotnia Frye
[2023-09-11 20:09] LABS: Basophils # 0.1 10^3/uL (0.0-0.1); Basophils % 0.5 %; Eosinophils # 0.2 10^3/uL (0.0-0.8); Eosinophils % 2.3 %; Hematocrit 35.6 % (36-47); Lymphocytes # 3.1 10^3/uL (0.8-4.8); Lymphocytes % 33.8 %; Mean Corpuscular HGB Conc 33.1 g/dL (30-55); Mean Corpuscular Hemoglobin 28.6 pg (27-33); Mean Corpuscular Volume 86.4 fl (85-98); Mean Platelet Volume 10.9 fL (7.4-10.4); Monocytes # 0.5 10^3/uL (0.2-0.9); Monocytes % 5.9 %; Neutrophils # 5.25 10^3/uL (1.8-7.7); Neutrophils % 57.2 %; Nucleated Red Blood Cells % 0 %; Platelet Count 260 10^3/cmm (157-399); Red Blood Count 4.12 10^6/uL (3.85-5.65); Red Cell Distribution Width 13.4 % (12.1-15.1); White Blood Count 9.18 10^3/uL (3.29-11.43)
[2023-09-11] MEDS: iohexol 350 mg/mL 500 mL Btl (per mL) IV (20:15)
[2023-09-11] MEDS: ondansetron 2 mg/ML SDV 2 mL 4 MG IVP (20:23)
[2023-09-11] MEDS: sodium chloride 0.9% 1,000 ML 999 ML IV (20:23)
[2023-09-11 20:25] LABS: HCG, Serum Qual Negative (Negative)
[2023-09-11 20:26] LABS: Alanine Aminotransferase 18 U/L (0-33); Albumin Level 4.1 g/dL (3.5-5.2); Alkaline Phosphatase 85 U/L (35-105); Anion Gap 13.8 (5-19); Aspartate Amino Transferase 16 U/L (0-32); Blood Urea Nitrogen 10 mg/dL (6-20); Calcium 9.3 mg/dL (8.5-10.5); Carbon Dioxide 23 mmol/L (22-29); Chloride 102 mmol/L (98-107); Globulin 3.2 g/dL (1.3-4.6); Glomerular Filtration Rate 140.4 mL/min (90-130); Glucose 117 mg/dL (65-115); Lipase 35 U/L (13-60); Osmolality Calculated 280 mOsm/kg (285-295); Potassium 3.8 mmol/L (3.5-5.1); Sodium 135 mmol/L (136-145); Total Bilirubin 0.3 mg/dL (0.15-1.2); Total Protein 7.3 g/dL (6.6-8.7)
[2023-09-11 21:03] LABS: Add Urine Microscopic? NO; Charge for UA Resulting for Rev
[2023-09-11 21:11] LABS: Bilirubin Urine Neg (Negative); Blood Urine Neg (Negative); Glucose Urine UA Norm (Normal); Ketones Urine Negative (Negative); Leukocyte Esterase Urine Negative (Negative); Nitrate Urine Negative (Negative); Protein Urine Neg (Negative); Urine Appearance Clear (CLEAR); Urine Color Yellow (Yellow); Urobilinogen Urine Norm (Negative); pH Urine 6 (5-7)
== END 2023-09-11 21:17 | disposition home or self-care (01) ==
PROVIDERS: Emergency Provider Emergency Medicine; PCP Family Medicine
DX: R10.31 Right lower quadrant pain (principal)
CPT/HCPCS: 36415; 74177; 80053; 81003; 83690; 84703; 85025; 96374; 99285; J2405; J7030; Q9967

== ENCOUNTER 2024-05-01 14:48 | Outpatient (CLI) | payer OTHER, SELFPAY ==
[2024-05-02 07:14] LABS: Rubeola Antibody IGG >300.00 AU/mL
[2024-05-02 13:08] LABS: RPR w(Moniotor) w/REFL Titer NON-REACTIVE (NON-REACTIVE)
[2024-05-03 12:20] LABS: Quantiferon Nil 0.15 IU/mL; Quantiferon Plus TB1 0.03 IU/mL; Quantiferon Plus TB2 0.02 IU/mL; Quantiferon TB Gold NEGATIVE (NEGATIVE)
== END 2024-05-01 14:49 | disposition home or self-care (01) ==
LOC: LAB 14:49
PROVIDERS: Family Medicine; PCP Family Medicine; Visit Provider Family Medicine
DX: Z02.89 Encounter for other administrative examinations (principal)
CPT/HCPCS: 36415; 86480; 86592; 86705; 86706; 86765; 86787; 87340

== ENCOUNTER → 2024-06-11 11:06 | Outpatient (BNVA) | payer OTHER, SELFPAY | PROVIDERS: PCP Family Medicine; Visit Provider Obstetrics & Gynecology | DX: Z30.430 Encounter for insertion of intrauterine contraceptive device (principal) | CPT/HCPCS: 81025 ==

== ENCOUNTER 2024-07-11 08:37 | Outpatient (CLI) | payer OTHER, SELFPAY ==
[2024-07-11 08:53] LABS: Basophils # 0.1 10^3/uL (0.0-0.1); Basophils % 0.5 %; Eosinophils # 0.2 10^3/uL (0.0-0.8); Eosinophils % 1.6 %; Hematocrit 34.5 % (36-47); Lymphocytes # 3.3 10^3/uL (0.8-4.8); Lymphocytes % 32.9 %; Mean Corpuscular HGB Conc 31.6 g/dL (30-55); Mean Corpuscular Hemoglobin 26.5 pg (27-33); Mean Corpuscular Volume 83.9 fl (85-98); Mean Platelet Volume 10.7 fL (7.4-10.4); Monocytes # 0.4 10^3/uL (0.2-0.9); Monocytes % 4.2 %; Neutrophils # 5.98 10^3/uL (1.8-7.7); Neutrophils % 60.3 %; Nucleated Red Blood Cells % 0 %; Platelet Count 300 10^3/cmm (157-399); Red Blood Count 4.11 10^6/uL (3.85-5.65); Red Cell Distribution Width 14.3 % (12.1-15.1); White Blood Count 9.93 10^3/uL (3.29-11.43)
[2024-07-11 09:06] LABS: Estmated Average Glucose 146; Hemoglobin A1C 6.7 % (4.0-6.0)
[2024-07-11 09:20] LABS: Alanine Aminotransferase 15 U/L (0-33); Albumin Level 3.9 g/dL (3.5-5.2); Alkaline Phosphatase 85 U/L (35-105); Anion Gap 17.1 (5-19); Aspartate Amino Transferase 14 U/L (0-32); Blood Urea Nitrogen 9 mg/dL (6-20); Calcium 8.9 mg/dL (8.5-10.5); Carbon Dioxide 22 mmol/L (22-29); Chloride 102 mmol/L (98-107); Cholesterol 155 mg/dL (0-200); Cortisol Random 14.78 ug/dL (2.47-19.5); Globulin 3.1 g/dL (1.3-4.6); Glomerular Filtration Rate 113.1 mL/min (90-130); Glucose 128 mg/dL (65-115); HDL Cholesterol 31 mg/dL (60-100); LDL Cholesterol Calculated 100 mg/dL (50-129); LDL HDL Ratio 3.23 RATIO (0.00-3.22); Magnesium 1.8 mg/dL (1.7-2.3); Osmolality Calculated 284 mOsm/kg (285-295); Potassium 4.1 mmol/L (3.5-5.1); Sodium 137 mmol/L (136-145); Total Bilirubin 0.3 mg/dL (0.15-1.2); Triglycerides 122 mg/dL (0-150); Uric Acid 4.3 mg/dL (2.4-5.7)
[2024-07-11 09:54] LABS: 25 Hydroxy Vitamin D 14 ng/mL (30-100); Prolactin 17.89 ng/mL (4.8-23.3)
[2024-07-11 12:37] LABS: Creatinine Urine, Random 201 mg/dL (28-217); Microalbum Creatinine Ratio Ur 5 mg/dL (0-20); Microalbumin Random Urine 1 ug/dL (0-20)
[2024-07-11 13:17] LABS: Free T4 Free Thyroxine 1.01 ng/dL (0.82-1.77)
== END 2024-07-11 08:38 | disposition home or self-care (01) ==
LOC: LAB 08:39
PROVIDERS: PCP Family Medicine; Visit Provider Internal Medicine
DX: E03.8 Other specified hypothyroidism (principal); E06.3 Autoimmune thyroiditis; D35.2 Benign neoplasm of pituitary gland; R73.03 Prediabetes; E66.9 Obesity, unspecified; O99.019 Anemia complicating pregnancy, unspecified trimester; D50.9 Iron deficiency anemia, unspecified
CPT/HCPCS: 80053; 80061; 82044; 82306; 82533; 83036; 83525; 83735; 84146; 84305; 84439; 84443; 84550; 85025

== ENCOUNTER 2024-07-21 13:45 | Outpatient (CLI) | payer OTHER, SELFPAY ==
--- NOTE | 2024-07-21 13:45 | MR_ITS ---
WS: [id number] MRI BRAIN WITHOUT AND WITH CONTRAST, ATTENTION DIRECTED TO THE PITUITARY GLAND HISTORY: pituitary microadenoma COMPARISON: 07/18/2023, 02/15/2022 TECHNIQUE: Diffusion-weighted imaging, axial T2 sequence, and postcontrast images in 3 planes are per formed. High-resolution coronal and sagittal imaging performed through the pituitary region with and without intravenous gadolinium. Normal sized pituitary gland. Pituitary measures 5.9 mm in superior-inferior diameter. Reidentified i s the pituitary microadenoma in the RIGHT sella turcica. Decreased enhancement noted on the dynamic i maging. Microadenoma measures 4.0 x 3.0 mm and appears just slightly greater in size than on the prio r study but this may be due to slice selection. This is still a microadenoma. There is no extension b eyond the sella turcica. No enhancement or encasement of the carotid arteries. Normal diffusion imaging. No acute ischemia. There are a few very tiny hyperintensities in the subcor tical white matter. No significant prior infarct. There is no volume loss or atrophy. Tiny focus in t he RIGHT cerebellum is not definitely identified today. No hemorrhage. Ventricles are normal size. No inferior displacement of the cerebellar tonsils. Orbits and globes and flow voids are negative. No mass or abnormal enhancement. No significant sinus disease. No air-fluid levels in the paranasal sinuses. Mastoid air cells are aaron ar. Normal calvarium. MR/MR pituitary wo/w con* [id number] IMPRESSION: 1. Very slight increase in size of the RIGHT pituitary microadenoma now measur ing 4 x 3 mm. Change in size is probably not significant. There is no extension beyond the sella turcica. 2. Stable T2 and FLAIR signal hyperintensities as previously described. No new or chronic infarct. 3. No significant sinus disease. 4. Normal ventricles.
[2024-07-21] MEDS: gadobenate dimeglumine 20 mL vial IV (14:38)
== END 2024-07-21 13:46 | disposition home or self-care (01) ==
LOC: RAD 13:46
PROVIDERS: PCP Family Medicine; Visit Provider Internal Medicine
DX: D35.2 Benign neoplasm of pituitary gland (principal); R93.89 Abnormal findings on diagnostic imaging of other specified body structures
CPT/HCPCS: 70553

== ENCOUNTER 2024-12-03 10:39 | Outpatient (CLI) | payer OTHER, SELFPAY ==
[2024-12-03 11:45] LABS: Basophils # 0.1 10^3/uL (0.0-0.1); Basophils % 0.6 %; Eosinophils # 0.4 10^3/uL (0.0-0.8); Eosinophils % 4.8 %; Hematocrit 37.2 % (36-47); Lymphocytes # 2.7 10^3/uL (0.8-4.8); Lymphocytes % 34.5 %; Mean Corpuscular HGB Conc 30.4 g/dL (30-55); Mean Corpuscular Hemoglobin 26.7 pg (27-33); Mean Corpuscular Volume 87.9 fl (85-98); Mean Platelet Volume 10.9 fL (7.4-10.4); Monocytes # 0.3 10^3/uL (0.2-0.9); Monocytes % 4.4 %; Neutrophils # 4.28 10^3/uL (1.8-7.7); Neutrophils % 55.4 %; Nucleated Red Blood Cells % 0 %; Platelet Count 267 10^3/cmm (157-399); Red Blood Count 4.23 10^6/uL (3.85-5.65); Red Cell Distribution Width 14.6 % (12.1-15.1); White Blood Count 7.72 10^3/uL (3.29-11.43)
[2024-12-03 12:00] LABS: Estmated Average Glucose 105; Hemoglobin A1C 5.3 % (4.0-6.0)
[2024-12-03 12:11] LABS: Creatinine Urine, Random 255 mg/dL (28-217); Microalbum Creatinine Ratio Ur 16 mg/dL (0-20); Microalbumin Random Urine 4 ug/dL (0-20)
[2024-12-03 12:26] LABS: Alanine Aminotransferase 12 U/L (0-33); Albumin Level 4.2 g/dL (3.5-5.2); Alkaline Phosphatase 97 U/L (35-105); Anion Gap 18.1 (5-19); Aspartate Amino Transferase 14 U/L (0-32); Blood Urea Nitrogen 9 mg/dL (6-20); Calcium 9.3 mg/dL (8.5-10.5); Carbon Dioxide 20 mmol/L (22-29); Chloride 102 mmol/L (98-107); Chol HDL Ratio 5.37 mg/dL (0.0-4.40); Cholesterol 161 mg/dL (0-200); Globulin 3.6 g/dL (1.3-4.6); Glomerular Filtration Rate 112.5 mL/min (90-130); Glucose 78 mg/dL (65-115); HDL Cholesterol 30 mg/dL (60-100); LDL Cholesterol Calculated 114 mg/dL (50-129); Osmolality Calculated 280 mOsm/kg (285-295); Potassium 4.1 mmol/L (3.5-5.1); Sodium 136 mmol/L (136-145); Total Bilirubin 0.4 mg/dL (0.15-1.2); Total Protein 7.8 g/dL (6.6-8.7); Triglycerides 85 mg/dL (0-150)
[2024-12-03 12:40] LABS: 25 Hydroxy Vitamin D 32 ng/mL (30-100)
[2024-12-03 20:07] LABS: Thyroid Stimulating Hormone 2.92 uIU/mL (0.27-4.20)
== END 2024-12-03 10:40 | disposition home or self-care (01) ==
PROVIDERS: PCP Family Medicine; Visit Provider Internal Medicine
DX: E03.8 Other specified hypothyroidism (principal); E06.3 Autoimmune thyroiditis; E11.9 Type 2 diabetes mellitus without complications; D35.2 Benign neoplasm of pituitary gland; E66.9 Obesity, unspecified; O99.019 Anemia complicating pregnancy, unspecified trimester; D50.9 Iron deficiency anemia, unspecified; E88.810 Metabolic syndrome
CPT/HCPCS: 36415; 80053; 80061; 82044; 82306; 83036; 83516; 84443; 85025

== ENCOUNTER 2024-12-26 16:47 | Outpatient (CLI) | payer OTHER, SELFPAY ==
[2024-12-26 17:28] LABS: HCG, Serum Qual Negative (Negative)
[2024-12-26 17:42] LABS: Alanine Aminotransferase 12 U/L (0-33); Albumin Level 4.5 g/dL (3.5-5.2); Alkaline Phosphatase 90 U/L (35-105); Aspartate Amino Transferase 17 U/L (0-32); Blood Urea Nitrogen 13 mg/dL (6-20); Calcium 9.7 mg/dL (8.5-10.5); Carbon Dioxide 18 mmol/L (22-29); Chloride 104 mmol/L (98-107); Glomerular Filtration Rate 138.8 mL/min (90-130); Glucose 81 mg/dL (65-115); Osmolality Calculated 281 mOsm/kg (285-295); Sodium 136 mmol/L (136-145); Total Bilirubin 0.3 mg/dL (0.15-1.2); Total Protein 7.5 g/dL (6.6-8.7)
[2024-12-26 18:02] LABS: Anion Gap 18.5 (5-19); Potassium 4.5 mmol/L (3.5-5.1)
== END 2024-12-26 16:48 | disposition home or self-care (01) ==
PROVIDERS: PCP Family Medicine; Visit Provider Family Medicine
DX: R11.0 Nausea (principal)
CPT/HCPCS: 36415; 80053; 84703